=== PATIENT | male | born 1985 | race Hispanic/Latino ===

== ENCOUNTER 2017-06-30 07:53 | Emergency (ER) | payer SELFPAY ==
[2017-06-30 08:48] LABS: Absolute Lymphocytes (CBC) 1.2 K/uL (0.7-4.9); Absolute Monocytes 0.7 K/uL (0.1-1.3); Absolute Neutrophil 6.4 K/uL (1.8-8.0); Basophils % 0.8 % (0-1.3); Eosinophils % 2.6 % (0-4.4); Hematocrit 48.5 % (39.6-49.0); Lymphocytes % 13.8 % (15.3-44.8); MCH 30.3 pg (27.0-35.0); MCV 88.8 fL (80-100); MPV 9.5 fL (7.6-11.3); Monocytes % 8.5 % (3.3-12.3); RBC Red Blood Cell Count 5.47 M/uL (4.33-5.43)
[2017-06-30 08:56] LABS: Bicarbonate 25 mEq/L (21-31); Glucose Level 246 mg/dL (65-120); Lipase 16 U/L (22-51); Potassium 3.7 mEq/L (3.6-5.0); Sodium Level 134 mEq/L (135-145)
[2017-06-30] MEDS ORDERED: DIPHENHYDRAMINE 50 MG/ML VIAL ONE (09:01)
[2017-06-30] MEDS ORDERED: ALBUTEROL 2.5 MG/3 ML NEB SOL ONE (09:01)
[2017-06-30] MEDS ORDERED: METOCLOPRAMIDE 10 MG/2mL INJ ONE (09:01)
[2017-06-30] MEDS ORDERED: KETOROLAC 30 MG/ML INJ ONE (09:01)
[2017-06-30] MEDS ORDERED: IPRATROPIUM BROM 0.5MG/2.5ML ONE (09:01)
[2017-06-30] MEDS ORDERED: NA CHLORIDE 0.9% 1,000 ML ONE (09:01)
[2017-06-30 09:02] LABS: ALT/SGPT 29 IU/L (10-60); AST/SGOT 25 IU/L (10-42); Albumin 4.4 g/dL (3.2-5.5); Alkaline Phosphatase 90 IU/L (42-121); Amylase Level 47 U/L (28-100); BUN Blood Urea Nitrogen 10 mg/dL (6-20); Bilirubin Direct 0.1 mg/dL (0-0.2); Bilirubin Total 0.8 mg/dL (0.3-1.2); Glomerular Filtration Rate > 90 mL/min (=/>90); Protein, Total 7.3 g/dL (6.0-8.3)
--- NOTE | 2017-06-30 10:08 | ER ---
Nurse's Notes [facility] Name: Elliott Vila Age: 31 yrs Sex: Male : 1985 Arrival Date: 06/30/2017 Time: 07:56 Bed 6 Private MD: Diagnosis: Noninfective gastroenteritis and colitis, unspecified;Migraine Presentation: 06/30 08:01 Presenting complaint: Patient states: vomiting x 3 days, headache that started ss yesterday. Transition of care: patient was not received from another setting of care. Onset of symptoms was June 27, 2017. Care prior to arrival: None. 08:01 Method Of Arrival: Ambulatory ss 08:01 Acuity: SHIMA 3 ss Triage Assessment: 08:02 General: Appears in no apparent distress. comfortable, Behavior is calm, cooperative. ss Respiratory: Respiratory effort is even, unlabored. Historical: - Allergies: 08:02 No Known Allergies; ss - Home Meds: 08:02 None [Active]; ss - PMHx: 08:02 None; ss - PSHx: 08:02 Hernia repair; ss - Immunization history:: Adult Immunizations unknown. - Social history:: Smoking status: Patient/guardian denies using tobacco. Screenin:15 Abuse screen: Denies threats or abuse. Denies injuries from another. Nutritional hb screening: No deficits noted. Tuberculosis screening: No symptoms or risk factors identified. Fall Risk None identified. Assessment: 08:15 General: Appears in no apparent distress. Behavior is calm, cooperative. Pain: Pain hb currently is 8 out of 10 on a pain scale. Neuro: Level of Consciousness is awake, alert, obeys commands, Oriented to person, place, time, situation, Pupils are PERRLA, Reports headache occipital area, since yesterday. Cardiovascular: Cardiovascular: Heart tones S1 S2 present Capillary refill < 3 seconds Patient's skin is warm and dry. Respiratory: Airway is patent Trachea midline Respiratory effort is even, unlabored, Respiratory pattern is regular, symmetrical, Breath sounds are clear bilaterally. GI: Abdomen is non-distended, Bowel sounds present X 4 quads. Abd is soft and non tender X 4 quads. Reports intolerance of fluids, intolerance of food, nausea, vomiting, x 3 days. : No signs and/or symptoms were reported regarding the genitourinary system. EENT: No signs and/or symptoms were reported regarding the EENT system. Derm: No signs and/or symptoms reported regarding the dermatologic system. Musculoskeletal: No signs and/or symptoms reported regarding the musculoskeletal system. 09:15 Reassessment: Patient appears in no apparent distress at this time. Patient and/or hb family updated on plan of care and expected duration. Pain level reassessed. Patient is alert, oriented x 3, equal unlabored respirations, skin warm/dry/pink. 10:19 General: Appears in no apparent distress. comfortable, Behavior is calm, cooperative, aj appropriate for age. Neuro: Level of Consciousness is awake, alert, obeys commands, Oriented to person, place, time, situation, Appropriate for age. Respiratory: Airway is patent Respiratory effort is even, unlabored, Respiratory pattern is regular, symmetrical. GI: Abdomen is non-distended, obese. Derm: Skin is intact, is healthy with good turgor, Skin is pink, warm \T\ dry. normal. Vital Signs: 08:02 BP 148 / 95; Pulse 83; Resp 15; Pulse Ox 99% on R/A; Weight 90.72 kg (M); Height 6 ft. ss 0 in. (182.88 cm); Pain 7/10; 09:00 BP 121 / 79; Pulse 82; Resp 16; Pulse Ox 100% on R/A; hb 10:19 BP 134 / 74; Pulse 86; Resp 18; Pulse Ox 99% on R/A; aj 08:02 Body Mass Index 27.12 (90.72 kg, 182.88 cm) ED Course: 07:56 Patient arrived in ED. as 08:02 Triage completed. ss 08:02 Arm band placed on right wrist. Patient placed in an exam room, on a stretcher. ss 08:03 Mehreen Rueda FNP-C is PHCP. kb 08:03 Pritesh Segura MD is Attending Physician. kb 08:15 Patient has correct armband on for positive identification. Placed in gown. Bed in low hb position. Call light in reach. Side rails up X 1. 08:41 Patient moved to radiology via wheelchair. jw2 08:41 X-ray completed. Patient tolerated procedure well. jw2 08:43 Jolanta Painting, RN is Primary Nurse. ph 10:19 No provider procedures requiring assistance completed. IV discontinued, intact, aj bleeding controlled, No redness/swelling at site. Pressure dressing applied, 20 G to right AC. Administered Medications: 08:48 Drug: DuoNeb (3:1) (2.5 mg - 0.5 mg) 3 ml Route: Nebulizer; hb 10:00 Follow up: Response: No adverse reaction ph 08:49 Drug: NS 0.9% 1000 ml Route: IV; Rate: 1000 ml; Site: right antecubital; hb 10:00 Follow up: Response: No adverse reaction; IV Status: Completed infusion ph 08:49 Drug: TORadol 30 mg Route: IVP; Site: right antecubital; hb 10:00 Follow up: Response: No adverse reaction ph 08:49 Drug: Reglan 10 mg Route: IVP; Site: right antecubital; hb 10:00 Follow up: Response: No adverse reaction ph 08:49 Drug: Benadryl 12.5 mg Route: IVP; Site: right antecubital; hb 10:00 Follow up: Response: No adverse reaction ph Outcome: 10:07 Discharge ordered by . kb 10:19 Discharged to home ambulatory. aj 10:19 Condition: good 10:19 Discharge instructions given to patient, Instructed on discharge instructions, follow up and referral plans. medication usage, Demonstrated understanding of instructions, follow-up care, medications, Prescriptions given X 1. 10:21 Patient left the ED. aj Signatures: Mehreen Rueda, COOPER HELPER-C COOPER HELPER-Maria Guadalupe Cortes RN RN aj Martinez, Amelia as Smirch, Shelby, RN RN Jolanta Paitning RN RN ph Wailes, Jenni jw Cesilia Deshpande RN RN
--- NOTE | 2017-06-30 10:08 | EDPHYS ---
Physician Documentation [facility] Name: Elliott Vila Age: 31 yrs Sex: Male : 1985 Arrival Date: 06/30/2017 Time: 07:56 Bed 6 Private MD: ED Physician Pritesh Segura HPI: 06/30 08:26 This 31 yrs old Male presents to ER via Ambulatory with complaints of kb Vomiting, Headache. 08:26 The patient presents to the emergency department with nausea, vomiting, diarrhea. kb Onset: The symptoms/episode began/occurred 3 day(s) ago. Possible causes: unknown. The symptoms are aggravated by nothing. The symptoms are alleviated by nothing. Associated signs and symptoms: Pertinent positives: diarrhea, nausea, vomiting, Pertinent negatives: abdominal pain, anorexia, belching, constipation, dysuria, fever, flatulence, GI bleeding, hematuria. Severity of symptoms: At their worst the symptoms were moderate in the emergency department the symptoms are unchanged. The patient has not experienced similar symptoms in the past. The patient has not recently seen a physician. Pt states he started having n/v/d 3 days ago. States he is still having vomiting, but hasn't had diarrhea since the day before yesterday. States he has shortness of breath in the mornings, smokes cigarettes. Also reports migraine that started this morning. Has history of migraines and this one feels similar to previous. Historical: - Allergies: 08:02 No Known Allergies; ss - Home Meds: 08:02 None [Active]; ss - PMHx: 08:02 None; ss - PSHx: 08:02 Hernia repair; ss - Immunization history:: Adult Immunizations unknown. - Social history:: Smoking status: Patient/guardian denies using tobacco. ROS: 08:25 ENT: Negative for injury, pain, and discharge, Neck: Negative for injury, pain, and kb swelling, Cardiovascular: Negative for chest pain, palpitations, and edema, Back: Negative for injury and pain, : Negative for injury, bleeding, discharge, and swelling, MS/Extremity: Negative for injury and deformity, Skin: Negative for injury, rash, and discoloration. 08:25 Constitutional: Positive for fatigue, malaise, Negative for body aches, chills, fever, poor PO intake, weight loss. 08:25 Respiratory: Positive for shortness of breath, in the mornings only. 08:25 Abdomen/GI: Positive for nausea, vomiting, and diarrhea, Negative for abdominal pain, constipation, abdominal cramps, abdominal distension, anorexia. 08:25 Neuro: Positive for headache, Negative for altered mental status, dizziness, gait disturbance, hearing loss, loss of consciousness, numbness, seizure activity, speech changes, syncope, near syncope, tingling, tinnitus, tremor, visual changes, weakness. Exam: 08:25 Head/Face: Normocephalic, atraumatic. ENT: Nares patent. No nasal discharge, no kb septal abnormalities noted. Tympanic membranes are normal and external auditory canals are clear. Oropharynx with no redness, swelling, or masses, exudates, or evidence of obstruction, uvula midline. Mucous membranes moist. Neck: Trachea midline, no thyromegaly or masses palpated, and no cervical lymphadenopathy. Supple, full range of motion without nuchal rigidity, or vertebral point tenderness. No Meningismus. Chest/axilla: Normal chest wall appearance and motion. Nontender with no deformity. No lesions are appreciated. Cardiovascular: Regular rate and rhythm with a normal S1 and S2. No gallops, murmurs, or rubs. Normal PMI, no JVD. No pulse deficits. Abdomen/GI: Soft, non-tender, with normal bowel sounds. No distension or tympany. No guarding or rebound. No evidence of tenderness throughout. Back: No spinal tenderness. No costovertebral tenderness. Full range of motion. Skin: Warm, dry with normal turgor. Normal color with no rashes, no lesions, and no evidence of cellulitis. MS/ Extremity: Pulses equal, no cyanosis. Neurovascular intact. Full, normal range of motion. Neuro: Awake and alert, GCS 15, oriented to person, place, time, and situation. Cranial nerves II-XII grossly intact. Motor strength 5/5 in all extremities. Sensory grossly intact. Cerebellar exam normal. Normal gait. 08:25 Constitutional: The patient appears alert, awake, uncomfortable. 08:25 Respiratory: the patient does not display signs of respiratory distress, Respirations: normal, Breath sounds: wheezing: expiratory that is mild, is heard in the left lower lobe and left posterior lower lobe. Vital Signs: 08:02 BP 148 / 95; Pulse 83; Resp 15; Pulse Ox 99% on R/A; Weight 90.72 kg (M); Height 6 ft. ss 0 in. (182.88 cm); Pain 7/10; 09:00 BP 121 / 79; Pulse 82; Resp 16; Pulse Ox 100% on R/A; hb 10:19 BP 134 / 74; Pulse 86; Resp 18; Pulse Ox 99% on R/A; aj 08:02 Body Mass Index 27.12 (90.72 kg, 182.88 cm) ss MDM: 08:03 Patient medically screened. kb 08:25 Data reviewed: vital signs, nurses notes. Data interpreted: Pulse oximetry: on room air kb is 99 %. Interpretation: normal. 10:06 Counseling: I had a detailed discussion with the patient and/or guardian regarding: the kb historical points, exam findings, and any diagnostic results supporting the discharge/admit diagnosis, lab results, the need for outpatient follow up, a family practitioner, to return to the emergency department if symptoms worsen or persist or if there are any questions or concerns that arise at home. Response to treatment: the patient's symptoms have resolved after treatment. ED course: Pt reports he feels much better after treatment. nausea and headache have resolved. . 06/30 08:22 Order name: Amylase, Serum kb 06/30 08:22 Order name: Basic Metabolic Panel kb 06/30 08:22 Order name: CBC with Diff kb 06/30 08:22 Order name: Hepatic Function kb 06/30 08:22 Order name: Lipase kb 06/30 08:49 Order name: CBC with Automated Diff; Complete Time: 08:51 EDMS 06/30 08:22 Order name: Chest Pa And Lat (2 Views) XRAY kb 06/30 08:56 Order name: Basic Metabolic Panel; Complete Time: 09:05 EDMS 06/30 08:56 Order name: Lipase; Complete Time: 09:05 EDMS 06/30 09:02 Order name: Liver (Hepatic) Function; Complete Time: 09:05 EDMS 06/30 09:02 Order name: Amylase Level; Complete Time: 09:05 EDMS 06/30 08:22 Order name: IV Saline Lock; Complete Time: 08:49 kb 06/30 08:22 Order name: Labs collected and sent; Complete Time: 08:50 kb Administered Medications: 08:48 Drug: DuoNeb (3:1) (2.5 mg - 0.5 mg) 3 ml Route: Nebulizer; hb 10:00 Follow up: Response: No adverse reaction ph 08:49 Drug: NS 0.9% 1000 ml Route: IV; Rate: 1000 ml; Site: right antecubital; hb 10:00 Follow up: Response: No adverse reaction; IV Status: Completed infusion ph 08:49 Drug: TORadol 30 mg Route: IVP; Site: right antecubital; hb 10:00 Follow up: Response: No adverse reaction ph 08:49 Drug: Reglan 10 mg Route: IVP; Site: right antecubital; hb 10:00 Follow up: Response: No adverse reaction ph 08:49 Drug: Benadryl 12.5 mg Route: IVP; Site: right antecubital; hb 10:00 Follow up: Response: No adverse reaction ph Disposition: 06/30/17 10:07 Discharged to Home. Impression: Noninfective gastroenteritis and colitis, unspecified, Migraine. - Condition is Stable. - Discharge Instructions: Food Choices to Help Relieve Diarrhea, Adult, Viral Gastroenteritis. - Prescriptions for Zofran 4 mg Oral Tablet - take 1 tablet by ORAL route every 6 hours As needed; 20 tablet. - Medication Reconciliation Form, Thank You Letter, Antibiotic Education, Prescription Opioid Use form. - Work release form (06/30/17 10:22). bd - Follow up: Emergency Department; When: As needed; Reason: Worsening of condition. Follow up: Private Physician; When: 2 - 3 days; Reason: Recheck today's complaints, Continuance of care, Re-evaluation by your physician. Addendum: 07/02/2017 08:02 Co-signature as Attending Physician, Pritesh Segura MD I agree with the assessment and c dhillon plan of care. Signatures: Dispatcher [employer] Mehreen Anders, JENNIFER-C ART MODEL-Maria Guadalupe Cortes, RN Pritesh Cano MD MD cha Smirch, Shelby, RN RN ss Baxter, Heather, RN RN Arina Givens Patricia RN ph
--- NOTE | 2017-06-30 10:25 | RAD REPORT ---
EXAM DESCRIPTION: Jeff Ahn (2 Views)06/30/2017 8:44 am CLINICAL HISTORY: sob COMPARISON: None FINDINGS: The lungs appear clear of acute infiltrate. The heart is normal size IMPRESSION: No acute abnormalities displayed
[2017-06-30 10:30] VITALS: BP 134/74; O2SAT 99
== END 2017-06-30 10:21 | disposition home or self-care (01) ==
LOC: ER 07:53
DX: K52.9 Noninfective gastroenteritis and colitis, unspecified (principal); G43.909 Migraine, unspecified, not intractable, without status migrainosus
CPT/HCPCS: 36415; 71046; 80048; 80076; 82150; 83690; 85025; 94640; 96361; 96374; 96375; 99284; J2765; J7030

== ENCOUNTER 2017-12-20 10:38 | Emergency (ER) | payer SELFPAY ==
[2017-12-20] MEDS ORDERED: BUPIVACAINE 0.5% PF 10 ML VIAL ONE (11:38)
[2017-12-20] MEDS ORDERED: LIDOCAINE 1% W/EPI 1:100,000 MDV 50 ML VIAL ONE (11:39)
[2017-12-20] MEDS ORDERED: CLINDAMYCIN 900MG/D5W 900 MG/50 ML BAG IV ONE (12:31)
--- NOTE | 2017-12-20 12:37 | EDPHYS ---
Physician Documentation [facility] Name: Elliott Vila Age: 32 yrs Sex: Male : 1985 Arrival Date: 12/20/2017 Time: 10:46 Bed Treatment Private MD: None, None ED Physician Rayshawn Hightower HPI: 12/20 11:25 This 32 yrs old Male presents to ER via Ambulatory with complaints of Abscess. cp 11:25 The patient presents with an abscess of the buttocks. cp 11:25 Onset: The symptoms/episode began/occurred 1 week(s) ago. cp 11:25 Associated signs and symptoms: Pertinent negatives: discharge, drainage, fever. cp Modifying factors: the symptoms are aggravated by sitting, touching. Severity of symptoms: in the emergency department the symptoms are unchanged, despite home interventions. Historical: - Allergies: 11:00 No Known Allergies; ph - Home Meds: 11:00 None [Active]; ph - PMHx: 11:00 None; ph - PSHx: 11:00 Hernia repair; ph - Immunization history:: Adult Immunizations unknown. - Social history:: Smoking status: Patient/guardian denies using tobacco. - Ebola Screening: : No symptoms or risks identified at this time. ROS: 11:30 Constitutional: Negative for body aches, chills, fever, poor PO intake. cp 11:30 ENT: Negative for injury, pain, and discharge. cp 11:30 Cardiovascular: Negative for chest pain, edema, palpitations. 11:30 Respiratory: Negative for cough, shortness of breath, wheezing. 11:30 Abdomen/GI: Negative for abdominal pain. 11:30 Skin: Positive for abscess, of the buttocks. 11:30 All other systems are negative. Exam: 11:35 Constitutional: The patient appears in no acute distress, alert, awake, non-toxic, well cp developed, well nourished. 11:35 Head/Face: Normocephalic, atraumatic. cp 11:35 Eyes: Periorbital structures: appear normal, Conjunctiva: normal, no exudate, no injection, Lids and lashes: appear normal, bilaterally. 11:35 ENT: External ear(s): are unremarkable, Nose: is normal, Mouth: Lips: moist, Oral mucosa: moist, Posterior pharynx: is normal, airway is patent. 11:35 Chest/axilla: Inspection: normal, Palpation: is normal, no crepitus, no tenderness. 11:35 Cardiovascular: Rate: normal, Rhythm: regular. 11:35 Respiratory: the patient does not display signs of respiratory distress, Respirations: normal, no use of accessory muscles, no retractions, no splinting, no tachypnea. 11:35 Abdomen/GI: Inspection: abdomen appears normal, Palpation: abdomen is soft and non-tender, in all quadrants. 11:35 Skin: abscess, that is small, of the coccyx and right buttock area, with fluctuance, that is mild. Vital Signs: 11:00 BP 158 / 98; Pulse 82; Resp 18; Temp 98.2; Pulse Ox 98% on R/A; Weight 92.99 kg; Height ph 6 ft. 0 in. (182.88 cm); Pain 7/10; 11:00 Body Mass Index 27.80 (92.99 kg, 182.88 cm) ph Procedures: 12:35 I \T\ D: Incision and drainage was performed for an abscess of the right pilonidal cyst cp Prepped with Betadine, Anesthetized with 8 ccs of 50/50 mixture 1% lidocaine with epi and 0.5% marcaine. Incised with #11 blade. Drained small amount purulent fluid. Cultures obtained. Packed with iodoform gauze, Dressing: sterile 4x4 gauze, the patient tolerated the procedure well. MDM: 11:20 Patient medically screened. cp 12:00 Differential diagnosis: abscess, allergic reaction, cellulitis, insect bite. cp 12:35 Data reviewed: vital signs, nurses notes, and as a result, I will discharge patient. cp 12:35 Counseling: I had a detailed discussion with the patient and/or guardian regarding: the cp historical points, exam findings, and any diagnostic results supporting the discharge/admit diagnosis, to return to the emergency department if symptoms worsen or persist or if there are any questions or concerns that arise at home. Response to treatment: the patient's symptoms have markedly improved after treatment, and as a result, I will discharge patient. 12/20 11:24 Order name: Wound Culture cp 12/20 11:24 Order name: I\T\D Setup; Complete Time: 11:36 cp Administered Medications: 12:00 Drug: Marcaine (0.5 %) 5 ml {Note: administered by PA. Lamar} Volume: 10 ml; ss Route: Infiltration; 12:00 Drug: Lidocaine-Epinephrine -1%: (1:100,000) 5 ml {Note: administered to wound by PA. Megan} Volume: 20 ml; Route: Infiltration; 12:33 Drug: Clindamycin 900 mg Route: IVPB; Infused Over: 30 mins; Site: left antecubital; 12:57 Follow up: IV Status: Completed infusion ss Disposition: 12/20/17 12:37 Discharged to Home. Impression: Pilonidal cyst with abscess. - Condition is Stable. - Discharge Instructions: Incision and Drainage, Pilonidal Cyst, Incision and Drainage, Care After. - Prescriptions for Clindamycin HCl 300 mg Oral Capsule - take 1 capsule by ORAL route every 6 hours for 10 days; 40 capsule. Tylenol- Codeine #3 300-30 mg Oral Tablet - take 2 tablets by ORAL route every 6 hours As needed; 15 tablet. Bactrim DS 800- 160 mg Oral Tablet - take 1 tablet by ORAL route every 12 hours for 10 days; 20 tablet. - Work release form, Medication Reconciliation Form, Thank You Letter, Antibiotic Education, Prescription Opioid Use form. - Follow up: Roosevelt Lopez MD; When: 1 - 2 days; Reason: Wound Recheck. - Problem is new. - Symptoms have improved. Addendum: 12/25/2017 07:03 Co-signature as Attending Physician, Rayshawn Hightower MD. r n Signatures: Dispatcher [employer] EDAZ Rayshawn Hightower MD MD rn Smirch, Shelby, RN RN ss Hall, Patricia, RN RN Pritesh Mcmanus PA PA cp Corrections: (The following items were deleted from the chart) 12/20 12:57 12:37 12/20/2017 12:37 Discharged to Home. Impression: Pilonidal cyst with abscess. ss Condition is Stable. Forms are Medication Reconciliation Form, Thank You Letter, Antibiotic Education, Prescription Opioid Use. Follow up: Dr. Roosevelt Lopez; When: 1 - 2 days; Reason: Wound Recheck. Problem is new. Symptoms have improved. cp
--- NOTE | 2017-12-20 12:37 | ER ---
Nurse's Notes [facility] Name: Elliott Vila Age: 32 yrs Sex: Male : 1985 Arrival Date: 12/20/2017 Time: 10:46 Bed Treatment Private MD: None, None Diagnosis: Pilonidal cyst with abscess Presentation: 12/20 10:59 Presenting complaint: Patient states: " I have an abscess right above my butt." Pt ph reports hx of abscess in same area, denies drainage, fever, N/V/D. Transition of care: patient was not received from another setting of care. Onset of symptoms was December 20, 2017. Risk Assessment: Do you want to hurt yourself or someone else? Patient reports no desire to harm self or others. Initial Sepsis Screen: Does the patient meet any 2 criteria? No. Patient's initial sepsis screen is negative. Does the patient have a suspected source of infection? Yes: Skin breakdown/wound. Care prior to arrival: None. 10:59 Method Of Arrival: Ambulatory ph 10:59 Acuity: SHIMA 4 ph Historical: - Allergies: 11:00 No Known Allergies; ph - Home Meds: 11:00 None [Active]; ph - PMHx: 11:00 None; ph - PSHx: 11:00 Hernia repair; ph - Immunization history:: Adult Immunizations unknown. - Social history:: Smoking status: Patient/guardian denies using tobacco. - Ebola Screening: : No symptoms or risks identified at this time. Screenin:18 Abuse screen: Denies threats or abuse. Denies injuries from another. Nutritional ph screening: No deficits noted. Tuberculosis screening: No symptoms or risk factors identified. Fall Risk None identified. Assessment: 11:17 General: Appears in no apparent distress. comfortable, well groomed, Behavior is calm, ph cooperative, appropriate for age, Denies fever, feeling ill. Pain: Complains of pain in coccyx. Neuro: Level of Consciousness is awake, alert, obeys commands, Oriented to person, place, time, situation. Cardiovascular: Capillary refill < 3 seconds Patient's skin is warm and dry. Respiratory: Airway is patent Respiratory effort is even, unlabored, Respiratory pattern is regular, symmetrical. GI: Patient currently denies diarrhea, nausea, vomiting. Derm: Skin is intact, is healthy with good turgor, Skin is pink, warm \\T\\ dry. Abscess located on coccyx is dime sized, has no drainage, is red, is raised. Musculoskeletal: Circulation, motion, and sensation intact. Range of motion: intact in all extremities. Vital Signs: 11:00 BP 158 / 98; Pulse 82; Resp 18; Temp 98.2; Pulse Ox 98% on R/A; Weight 92.99 kg; Height ph 6 ft. 0 in. (182.88 cm); Pain 7/10; 11:00 Body Mass Index 27.80 (92.99 kg, 182.88 cm) ph ED Course: 10:46 Patient arrived in ED. sb2 10:46 None, None is Private Physician. sb2 11:00 Triage completed. ph 11:01 Arm band placed on Patient placed in waiting room, Patient notified of wait time. ph 11:16 Jolanta Painting, RN is Primary Nurse. ph 11:18 Patient has correct armband on for positive identification. Bed in low position. Call ph light in reach. Side rails up X 1. Pulse ox on. NIBP on. Warm blanket given. 11:19 Pritesh Mcmanus PA is PHCP. cp 11:20 Rayshawn Hightower MD is Attending Physician. cp 12:18 Assist provider with I \\T\\ D: of an abscess on pilonidal cyst Set up I\\T\\D tray. Performed ss by Pritesh MCKEE Culture sent to lab. Wound packed. iodoform gauze, Dressing with ABD pad, 4X4s, tape Patient tolerated well. 12:25 Inserted saline lock: 22 gauge in left antecubital area, using aseptic technique. ss 12:36 Roosevelt Lopez MD is Referral Physician. cp 12:56 IV discontinued, intact, bleeding controlled, No redness/swelling at site. Pressure ss dressing applied. Administered Medications: 12:00 Drug: Marcaine (0.5 %) 5 ml {Note: administered by RAFI Newton.} Volume: 10 ml; ss Route: Infiltration; 12:00 Drug: Lidocaine-Epinephrine -1%: (1:100,000) 5 ml {Note: administered to wound by PA. Megan} Volume: 20 ml; Route: Infiltration; 12:33 Drug: Clindamycin 900 mg Route: IVPB; Infused Over: 30 mins; Site: left antecubital; 12:57 Follow up: IV Status: Completed infusion Outcome: 12:37 Discharge ordered by . rufino 12:56 Discharged to home ambulatory. 12:56 Condition: good 12:56 Discharge instructions given to patient, Instructed on discharge instructions, follow up and referral plans. medication usage, Demonstrated understanding of instructions, follow-up care, medications, Prescriptions given X 3. 12:57 Patient left the ED. Signatures: Christine Magana RN RN Jolanta Pianting RN RN ph Pritesh Mcmanus, PA PA cp Mikayla Combs sb2
[2017-12-20 13:05] VITALS: BP 158/98; TEMP 98.2; O2SAT 98
== END 2017-12-20 12:57 | disposition home or self-care (01) ==
LOC: ER 10:38
PROC: 0H98XZZ Drainage of Buttock Skin, External Approach (ICD-10-PCS; principal; 2017-12-20)
DX: L05.01 Pilonidal cyst with abscess (principal)
CPT/HCPCS: 87070; 87205; 96365; 99284

== ENCOUNTER 2018-07-29 20:01 | Emergency (ER) | payer OTHER, SELFPAY ==
--- OUTSIDE RECORDS SUMMARY | 2018-07-29 20:04 | XMS REPORT ---
:1985 [facility] Address [address] [place] [address] Dr. Rodriguez [address] [place] [id number] Care Team Providers Name Role Phone Unavailable Unavailable Unavailable Problems This patient has no known problems. Allergies, Adverse Reactions, Alerts This patient has no known allergies or adverse reactions. Medications This patient has no known medications.
--- NOTE | 2018-07-29 20:37 | ER ---
Nurse's Notes [facility] Name: Elliott Vila Age: 33 yrs Sex: Male : 1985 Arrival Date: 07/29/2018 Time: 20:05 Bed 12 Private MD: Diagnosis: Other diseases of pulp and periapical tissues Presentation: 07/29 20:24 Presenting complaint: Patient states: Has been having pain for 1 week to tooth, but "it lp1 feels like it chipped and a nerve is exposed cause it's really painful now"; States will try to get appt at [facility] tomorrow; Took Ibuprofen at home with no relief. Transition of care: patient was not received from another setting of care. Onset of symptoms was July 29, 2018. Risk Assessment: Do you want to hurt yourself or someone else? Patient reports no desire to harm self or others. Initial Sepsis Screen: Does the patient meet any 2 criteria? No. Patient's initial sepsis screen is negative. Does the patient have a suspected source of infection? No. Patient's initial sepsis screen is negative. Care prior to arrival: None. 20:24 Method Of Arrival: Ambulatory lp1 20:24 Acuity: SHIMA 4 lp1 Triage Assessment: 20:28 EENT: Reports pain in upper left second bicuspid. lp1 Historical: - Allergies: 20:26 No Known Allergies; lp1 - Home Meds: 20:26 None [Active]; lp1 - PMHx: 20:26 None; lp1 - PSHx: 20:26 Hernia repair; lp1 - Immunization history:: Adult Immunizations up to date. - Social history:: Smoking status: Patient/guardian denies using tobacco. - Ebola Screening: : No symptoms or risks identified at this time. Screenin:26 Abuse screen: Denies threats or abuse. Denies injuries from another. Nutritional lp1 screening: No deficits noted. Tuberculosis screening: No symptoms or risk factors identified. Fall Risk None identified. Assessment: 20:27 General: Appears uncomfortable, Behavior is appropriate for age. Pain: Complains of lp1 pain in upper left second bicuspid Pain currently is 10 out of 10 on a pain scale. Quality of pain is described as sharp, stabbing. Neuro: No deficits noted. Cardiovascular: No deficits noted. Respiratory: No deficits noted. GI: No deficits noted. : No deficits noted. EENT: Oral mucosa is moist. Dental caries noted in upper left second bicuspid (#13). Derm: Skin is pink, warm \\T\\ dry. Musculoskeletal: No deficits noted. Vital Signs: 20:25 BP 141 / 91; Pulse 75; Resp 18; Temp 98.2(O); Pulse Ox 100% on R/A; Weight 92.99 kg; lp1 Height 6 ft. 0 in. (182.88 cm); Pain 10/10; 20:25 Body Mass Index 27.80 (92.99 kg, 182.88 cm) lp1 ED Course: 20:05 Patient arrived in ED. am2 20:12 Geeta Subramanian [facility]NP-C [facility]. snw 20:12 Kolby Bryant MD is Attending Physician. snw 20:25 Triage completed. lp1 20:25 Arm band placed on right wrist. lp1 20:26 Patient has correct armband on for positive identification. lp1 20:27 Hedy Landaverde RN is Primary Nurse. lp1 21:07 No provider procedures requiring assistance completed. Patient did not have IV access lp1 during this emergency room visit. Administered Medications: 20:45 Drug: Tate 5 mg-325 mg 1 tabs Route: PO; lp1 21:07 Follow up: Response: No adverse reaction lp1 20:45 Drug: Motrin 400 mg Route: PO; lp1 21:07 Follow up: Response: No adverse reaction lp1 20:45 Drug: Amoxicillin 500 mg Route: PO; lp1 21:07 Follow up: Response: No adverse reaction lp1 20:45 Drug: Viscous Lidocaine Liquid (4 %) 10 ml Route: Mucous Membrane; lp1 21:07 Follow up: Response: No adverse reaction lp1 Outcome: 20:36 Discharge ordered by . snw 21:07 Discharged to home ambulatory, with significant other. lp1 21:07 Condition: good 21:07 Discharge instructions given to patient, Instructed on discharge instructions, follow up and referral plans. medication usage, Demonstrated understanding of instructions, follow-up care, medications, Prescriptions given X 3. 21:08 Patient left the ED. lp1 Signatures: Geeta Subramanian FNP-C LICENSED PROFESSIONAL COUNSELOR-Csnw Hedy Landaverde RN RN lp1 , Maria Guadalupe am2
--- NOTE | 2018-07-29 20:37 | EDPHYS ---
Physician Documentation [facility] Name: Elliott Vila Age: 33 yrs Sex: Male : 1985 Arrival Date: 07/29/2018 Time: 20:05 Bed 12 Private MD: ED Physician Kolby Bryant HPI: 07/29 20:50 This 33 yrs old Male presents to ER via Ambulatory with complaints of snw Toothache. 20:50 The patient presents with broken tooth/teeth, pain. The problem is located in the upper snw left second bicuspid (#13). Onset: The symptoms/episode began/occurred suddenly, 3 day(s) ago, and became worse today. Duration: The symptoms are continuous, and are steadily getting worse. Associated signs and symptoms: The patient has no apparent associated signs or symptoms. Severity of symptoms: At their worst the symptoms were moderate, severe. The patient has not experienced similar symptoms in the past. It is unknown whether or not the patient has recently seen a physician. Historical: - Allergies: 20:26 No Known Allergies; lp1 - Home Meds: 20:26 None [Active]; lp1 - PMHx: 20:26 None; lp1 - PSHx: 20:26 Hernia repair; lp1 - Immunization history:: Adult Immunizations up to date. - Social history:: Smoking status: Patient/guardian denies using tobacco. - Ebola Screening: : No symptoms or risks identified at this time. ROS: 20:48 Constitutional: Negative for fever, chills, and weight loss, Eyes: Negative for injury, snw pain, redness, and discharge, Neck: Negative for injury, pain, and swelling, Cardiovascular: Negative for chest pain, palpitations, and edema, Respiratory: Negative for shortness of breath, cough, wheezing, and pleuritic chest pain, Abdomen/GI: Negative for abdominal pain, nausea, vomiting, diarrhea, and constipation, Back: Negative for injury and pain, : Negative for injury, bleeding, discharge, and swelling, MS/Extremity: Negative for injury and deformity, Skin: Negative for injury, rash, and discoloration, Neuro: Negative for headache, weakness, numbness, tingling, and seizure. 20:48 ENT: Positive for dental pain, ear pain, Teeth pain Exam: 20:48 Constitutional: This is a well developed, well nourished patient who is awake, alert, snw and in no acute distress. Head/Face: Normocephalic, atraumatic. Eyes: Pupils equal round and reactive to light, extra-ocular motions intact. Lids and lashes normal. Conjunctiva and sclera are non-icteric and not injected. Cornea within normal limits. Periorbital areas with no swelling, redness, or edema. Neck: Trachea midline, no thyromegaly or masses palpated, and no cervical lymphadenopathy. Supple, full range of motion without nuchal rigidity, or vertebral point tenderness. No Meningismus. Chest/axilla: Normal chest wall appearance and motion. Nontender with no deformity. No lesions are appreciated. Cardiovascular: Regular rate and rhythm with a normal S1 and S2. No gallops, murmurs, or rubs. Normal PMI, no JVD. No pulse deficits. Respiratory: Lungs have equal breath sounds bilaterally, clear to auscultation and percussion. No rales, rhonchi or wheezes noted. No increased work of breathing, no retractions or nasal flaring. Abdomen/GI: Soft, non-tender, with normal bowel sounds. No distension or tympany. No guarding or rebound. No evidence of tenderness throughout. Back: No spinal tenderness. No costovertebral tenderness. Full range of motion. Skin: Warm, dry with normal turgor. Normal color with no rashes, no lesions, and no evidence of cellulitis. MS/ Extremity: Pulses equal, no cyanosis. Neurovascular intact. Full, normal range of motion. Neuro: Awake and alert, GCS 15, oriented to person, place, time, and situation. Cranial nerves II-XII grossly intact. Motor strength 5/5 in all extremities. Sensory grossly intact. Cerebellar exam normal. Normal gait. 20:48 ENT: TM's: are normal, Nose: is normal, Mouth: is normal, Dental exam: fractured teeth are noted, specifically the upper left second bicuspid (#13). Vital Signs: 20:25 BP 141 / 91; Pulse 75; Resp 18; Temp 98.2(O); Pulse Ox 100% on R/A; Weight 92.99 kg; lp1 Height 6 ft. 0 in. (182.88 cm); Pain 10/10; 20:25 Body Mass Index 27.80 (92.99 kg, 182.88 cm) lp1 MDM: 20:29 Patient medically screened. snw 20:49 Data reviewed: vital signs, nurses notes. Data interpreted: Pulse oximetry: on room air snw is 100 %. Interpretation: normal. Counseling: I had a detailed discussion with the patient and/or guardian regarding: the historical points, exam findings, and any diagnostic results supporting the discharge/admit diagnosis, the need for outpatient follow up, to return to the emergency department if symptoms worsen or persist or if there are any questions or concerns that arise at home. Special discussion: I have referred the patient to see his PCP for further evaluation of high blood pressure. Based on the history and exam findings, there is no indication for further emergent testing or inpatient evaluation. I discussed with the patient/guardian the need to see a dentist for further evaluation of the symptoms. I discussed with the patient/guardian the need to see the primary care provider for further evaluation of the symptoms. Administered Medications: 20:45 Drug: [place] 5 mg-325 mg 1 tabs Route: PO; lp1 21:07 Follow up: Response: No adverse reaction lp1 20:45 Drug: Motrin 400 mg Route: PO; lp1 21:07 Follow up: Response: No adverse reaction lp1 20:45 Drug: Amoxicillin 500 mg Route: PO; lp1 21:07 Follow up: Response: No adverse reaction lp1 20:45 Drug: Viscous Lidocaine Liquid (4 %) 10 ml Route: Mucous Membrane; lp1 21:07 Follow up: Response: No adverse reaction lp1 Disposition: 07/30 01:33 Co-signature as Attending Physician, Kolby Bryant MD. Disposition: 07/29/18 20:36 Discharged to Home. Impression: Other diseases of pulp and periapical tissues. - Condition is Stable. - Discharge Instructions: Dental Caries, Adult, Dental Pain, Root Canal, Diet and Dental Disease. - Prescriptions for chlorhexidine gluconate 0.12 % Mucous Membrane mouthwash - place 15 milliliter by MUCOUS MEMBRANE route 2 times per day after brushing teeth, swish in mouth for 30 seconds then spit out; 480 milliliter. Amoxicillin 875 mg Oral Tablet - take 1 tablet by ORAL route every 12 hours for 10 days; 20 tablet. Mobic 7.5 mg Oral Tablet - take 1 tablet by ORAL route every 12 hours take with food; 20 tablet. - Medication Reconciliation Form, Thank You Letter, Antibiotic Education, Prescription Opioid Use, Work release form form. - Follow up: Private Physician; When: 1 - 2 days; Reason: Recheck today's complaints, Continuance of care, Re-evaluation by your physician. Signatures: Geeta Subramanian, TOOL DIE MAKER-C TOOL DIE MAKER-Csnw Hedy Landaverde RN RN lp1 Kolby Bryant MD MD gs Corrections: (The following items were deleted from the chart) 07/29 21:08 20:36 07/29/2018 20:36 Discharged to Home. Impression: Other diseases of pulp and lp1 periapical tissues. Condition is Stable. Forms are Medication Reconciliation Form, Thank You Letter, Antibiotic Education, Prescription Opioid Use. Follow up: Private Physician; When: 1 - 2 days; Reason: Recheck today's complaints, Continuance of care, Re-evaluation by your physician. snw
[2018-07-29] MEDS ORDERED: HYDROCODONE/APAP 5/325 MG TAB ONE (20:57)
[2018-07-29] MEDS ORDERED: IBUPROFEN 400 MG TAB ONE (20:58)
[2018-07-29] MEDS ORDERED: LIDOCAINE VISCOUS 2% SOLN 15 ML UDC ONE (20:58)
[2018-07-29] MEDS ORDERED: AMOXICILLIN TRIHYDR 250 MG CAP ONE (20:58)
[2018-07-29 21:47] VITALS: BP 141/91; TEMP 98.2; O2SAT 100
== END 2018-07-29 21:08 | disposition home or self-care (01) ==
LOC: ER 20:01
DX: K04.99 Other diseases of pulp and periapical tissues (principal)
CPT/HCPCS: 99283

== ENCOUNTER 2018-11-26 18:20 | Emergency (ER) | payer OTHER, SELFPAY ==
--- OUTSIDE RECORDS SUMMARY | 2018-11-26 18:22 | XMS REPORT ---
:1985 [facility] Address [address] [place] [address] Dr. Rodriguez [address] [place] [id number] Care Team Providers Name Role Phone Unavailable Unavailable Unavailable Problems This patient has no known problems. Allergies, Adverse Reactions, Alerts This patient has no known allergies or adverse reactions. Medications This patient has no known medications.
[2018-11-26] MEDS ORDERED: TETANUS & DIPHTHERIA TOX,ADULT 0.5 ML VIAL ONE (19:23)
[2018-11-26] MEDS ORDERED: HYDROCODONE/APAP 10/325 TAB ONE (19:23)
--- NOTE | 2018-11-26 19:28 | ER ---
Nurse's Notes [facility] Name: Elliott Vila Age: 33 yrs Sex: Male : 1985 Arrival Date: 11/26/2018 Time: 18:23 Bed 26 Private MD: Diagnosis: Pilonidal cyst with abscess Presentation: 11/26 18:23 Presenting complaint: Patient states: i have a boil on my tail bone since Sunday, it hj popped yesterday and now it hurts very bad, denies fever and chills;. Transition of care: patient was not received from another setting of care. Onset of symptoms was November 26, 2018. Risk Assessment: Do you want to hurt yourself or someone else? Patient reports no desire to harm self or others. Initial Sepsis Screen: Does the patient meet any 2 criteria? No. Patient's initial sepsis screen is negative. Does the patient have a suspected source of infection? No. Patient's initial sepsis screen is negative. Care prior to arrival: None. 18:23 Method Of Arrival: Ambulatory 18:23 Acuity: SHIMA 4 hj Historical: - Allergies: 18:24 No Known Allergies; hj - PMHx: 18:24 None; hj - PSHx: 18:24 None; hj - Immunization history:: Adult Immunizations unknown, Last tetanus immunization: unknown. - Social history:: Smoking status: unknown. - Ebola Screening: : Patient negative for fever greater than or equal to 101.5 degrees Fahrenheit, and additional compatible Ebola Virus Disease symptoms Patient denies exposure to infectious person Patient denies travel to an Ebola-affected area in the 21 days before illness onset. Screenin:08 Abuse screen: Denies threats or abuse. Denies injuries from another. Nutritional mg2 screening: No deficits noted. Tuberculosis screening: No symptoms or risk factors identified. Fall Risk None identified. Assessment: 19:35 General: Appears in no apparent distress. comfortable, Behavior is calm, cooperative. mg2 Pain: Complains of pain in sacral area Pain does not radiate. Pain currently is 2 out of 10 on a pain scale. 19:35 Neuro: Level of Consciousness is awake, alert, obeys commands, Oriented to person, rr5 place, time, situation, Appropriate for age. Cardiovascular: Capillary refill < 3 seconds Patient's skin is warm and dry. Respiratory: Airway is patent Respiratory effort is even, unlabored, Respiratory pattern is regular, symmetrical. Derm: Abscess located on left gluteal fold is dime sized, has no drainage, is red, is raised. 19:35 GI: No signs and/or symptoms were reported involving the gastrointestinal system. : rr5 No signs and/or symptoms were reported regarding the genitourinary system. EENT: No signs and/or symptoms were reported regarding the EENT system. Musculoskeletal: Circulation, motion, and sensation intact. Capillary refill < 3 seconds. 19:40 Reassessment: Patient appears in no apparent distress at this time. Patient is alert, rr5 oriented x 3, equal unlabored respirations, skin warm/dry/pink. discharge instruction given and explained without complaints made. Vital Signs: 18:24 BP 132 / 69; Pulse 76; Resp 18; Temp 99.0(TE); Pulse Ox 100% on R/A; Weight 88.45 kg; hj Height 6 ft. 0 in. (182.88 cm); Pain 10/10; 19:17 BP 145 / 88 LA (auto/reg); Pulse 75; Resp 18; Pulse Ox 100% on R/A; Pain 7/10; jp3 19:40 BP 121 / 75; Pulse 79; Resp 17; Pulse Ox 99% ; rr5 18:24 Body Mass Index 26.45 (88.45 kg, 182.88 cm) ED Course: 18:23 Patient arrived in ED. hj 18:24 Triage completed. hj 18:24 Arm band placed on left wrist. hj 19:08 Rubin Santos, ZIYAD is Primary Nurse. mg2 19:08 Андрей Viera NP is PHCP. pm1 19:08 Kolby Bryant MD is Attending Physician. pm1 19:17 Bed in low position. Call light in reach. Verbal reassurance given. Pulse ox on. NIBP jp3 on. 19:17 No provider procedures requiring assistance completed. Patient maintains SpO2 jp3 saturation greater than 95% on room air. 19:24 Lebron Avila MD is Referral Physician. pm1 19:40 Patient did not have IV access during this emergency room visit. rr5 Administered Medications: 19:27 Drug: [place] 10 mg-325 mg 1 tabs Route: PO; mg2 19:27 Follow up: Response: No adverse reaction; Medication administered at discharge. mg2 19:40 Follow up: Response: Medication administered at discharge. rr5 19:28 Drug: Tetanus-Diphtheria Toxoid Adult 0.5 ml {[employer]: [employer]. Exp: mg2 06/29/2020. Lot #: [id number]. } Route: IM; Site: right deltoid; 19:28 Follow up: Response: No adverse reaction; Medication administered at discharge. mg2 19:40 Follow up: Response: Medication administered at discharge. rr5 Outcome: 19:24 Discharge ordered by MD. pm1 19:40 Discharged to home ambulatory, with family. rr5 19:40 Condition: stable 19:40 Discharge instructions given to patient, Instructed on discharge instructions, follow rr5 up and referral plans. medication usage, Demonstrated understanding of instructions, follow-up care, medications, Prescriptions given X 2. 19:42 Patient left the ED. rr5 Signatures: Hans Tinoco RN RN Андрей Viera NP [facility]NALY[facility] pm1 Rubin Santos RN RN [facility] [place] 3 Christ Allan, ZIYAD RN rr5 Corrections: (The following items were deleted from the chart) 18:26 18:24 Pulse 76bpm; Resp 18bpm; Pulse Ox 100% RA; Temp 99.0F Temporal; 88.45 kg; Height hj 6 ft. 0 in.; BMI: 26.4; Pain 10/10; hj
--- NOTE | 2018-11-26 19:29 | EDPHYS ---
Physician Documentation [facility] Name: Elliott Vila Age: 33 yrs Sex: Male : 1985 Arrival Date: 11/26/2018 Time: 18:23 Bed 26 Private MD: ED Physician Kolby Bryant HPI: 11/26 19:18 This 33 yrs old Male presents to ER via Ambulatory with complaints of Abscess. pm1 19:18 The patient presents with an abscess of the coccyx. Description: draining. Onset: The pm1 symptoms/episode began/occurred 3 day(s) ago. Possible cause(s): unknown. Associated signs and symptoms: Pertinent positives: drainage, Pertinent negatives: fever, vomiting. Modifying factors: the symptoms are alleviated by squeezing the lesion and expressing the contents, yesterday, the symptoms are aggravated by touching. Severity of symptoms: in the emergency department the symptoms have improved. The patient has experienced a previous episode. The patient has not recently seen a physician. Historical: - Allergies: 18:24 No Known Allergies; hj - PMHx: 18:24 None; hj - PSHx: 18:24 None; hj - Immunization history:: Adult Immunizations unknown, Last tetanus immunization: unknown. - Social history:: Smoking status: unknown. - Ebola Screening: : Patient negative for fever greater than or equal to 101.5 degrees Fahrenheit, and additional compatible Ebola Virus Disease symptoms Patient denies exposure to infectious person Patient denies travel to an Ebola-affected area in the 21 days before illness onset. ROS: 19:18 Constitutional: Negative for fever, chills, and weight loss, Eyes: Negative for injury, pm1 pain, redness, and discharge, ENT: Negative for injury, pain, and discharge, Neck: Negative for injury, pain, and swelling, Cardiovascular: Negative for chest pain, palpitations, and edema, Respiratory: Negative for shortness of breath, cough, wheezing, and pleuritic chest pain, Abdomen/GI: Negative for abdominal pain, nausea, vomiting, diarrhea, and constipation, Back: Negative for injury and pain, MS/Extremity: Negative for injury and deformity. 19:18 Neuro: Negative for headache, weakness, numbness, tingling, and seizure. 19:18 Skin: Positive for abscess, of the coccyx. Exam: 19:18 Constitutional: This is a well developed, well nourished patient who is awake, alert, pm1 and in no acute distress. Head/Face: Normocephalic, atraumatic. Chest/axilla: Normal chest wall appearance and motion. Nontender with no deformity. No lesions are appreciated. Cardiovascular: Regular rate and rhythm with a normal S1 and S2. No gallops, murmurs, or rubs. Normal PMI, no JVD. No pulse deficits. Respiratory: Lungs have equal breath sounds bilaterally, clear to auscultation and percussion. No rales, rhonchi or wheezes noted. No increased work of breathing, no retractions or nasal flaring. Abdomen/GI: Soft, non-tender, with normal bowel sounds. No distension or tympany. No guarding or rebound. No evidence of tenderness throughout. Back: No spinal tenderness. No costovertebral tenderness. Full range of motion. 19:18 Skin: Appearance: normal except for affected area, abscess, that is small, approximately 1 cm(s), of the coccyx, no drainage, fluctuance, pointing, or surrounding cellulitis. 19:18 Neuro: Orientation: is normal, Motor: is normal, moves all fours, Gait: is steady, at a normal pace, without difficulty. Vital Signs: 18:24 BP 132 / 69; Pulse 76; Resp 18; Temp 99.0(TE); Pulse Ox 100% on R/A; Weight 88.45 kg; hj Height 6 ft. 0 in. (182.88 cm); Pain 10/10; 19:17 BP 145 / 88 LA (auto/reg); Pulse 75; Resp 18; Pulse Ox 100% on R/A; Pain 7/10; jp3 19:40 BP 121 / 75; Pulse 79; Resp 17; Pulse Ox 99% ; rr5 18:24 Body Mass Index 26.45 (88.45 kg, 182.88 cm) MDM: 19:08 Patient medically screened. pm1 19:18 Data reviewed: vital signs. Data interpreted: Pulse oximetry: on room air is 100 %. pm1 Interpretation: normal. Counseling: I had a detailed discussion with the patient and/or guardian regarding: the historical points, exam findings, and any diagnostic results supporting the discharge/admit diagnosis, the need for outpatient follow up, for definitive care, a general surgeon, to return to the emergency department if symptoms worsen or persist or if there are any questions or concerns that arise at home. 19:18 Refusal of service: The patient/guardian displays adequate decision making capability pm1 and despite a detailed discussion of alternatives, benefits, risks, and consequences refuses: incision and drainage. Patient has had I\T\D in the past and he does not want to do that again. Wants to try just taking antibiotics and following up with general surgery. Administered Medications: 19:27 Drug: Timpson 10 mg-325 mg 1 tabs Route: PO; mg2 19:27 Follow up: Response: No adverse reaction; Medication administered at discharge. mg2 19:40 Follow up: Response: Medication administered at discharge. rr5 19:28 Drug: Tetanus-Diphtheria Toxoid Adult 0.5 ml {Industrial Locomotive Operator: [employer]. Exp: mg2 06/29/2020. Lot #: [id number]. } Route: IM; Site: right deltoid; 19:28 Follow up: Response: No adverse reaction; Medication administered at discharge. mg2 19:40 Follow up: Response: Medication administered at discharge. rr5 Disposition: 11/26/18 19:24 Discharged to Home. Impression: Pilonidal cyst with abscess. - Condition is Stable. - Discharge Instructions: Pilonidal Cyst. - Prescriptions for Tylenol- Codeine #3 300-30 mg Oral Tablet - take 2 tablets by ORAL route every 6 hours As needed; 20 tablet. Bactrim DS 800- 160 mg Oral Tablet - take 1 tablet by ORAL route every 12 hours for 10 days; 20 tablet. - Medication Reconciliation Form, Thank You Letter, Antibiotic Education, Prescription Opioid Use, Work release form form. - Follow up: Emergency Department; When: As needed; Reason: Worsening of condition. Follow up: Private Physician; When: 2 - 3 days; Reason: Recheck today's complaints, Continuance of care, Re-evaluation by your physician. Follow up: Lebron Avila MD; When: 2 - 3 days; Reason: Recheck today's complaints, Continuance of care, Re-evaluation by your physician. - Problem is new. - Symptoms have improved. Signatures: Hans Tinoco RN RN hj Андрей Viera NP STAFFING CONSULTANT pm1 Rubin Santos RN RN Christ Singh RN RN rr5 Corrections: (The following items were deleted from the chart) 19:24 19:24 11/26/2018 19:24 Discharged to Home. Impression: Pilonidal cyst with abscess. pm1 Condition is Stable. Forms are Medication Reconciliation Form, Thank You Letter, Antibiotic Education, Prescription Opioid Use. Follow up: Emergency Department; When: As needed; Reason: Worsening of condition. Follow up: Private Physician; When: 2 - 3 days; Reason: Recheck today's complaints, Continuance of care, Re-evaluation by your physician. Follow up: Lebron Avila; When: 2 - 3 days; Reason: Recheck today's complaints, Continuance of care, Re-evaluation by your physician. pm1 19:42 19:24 11/26/2018 19:24 Discharged to Home. Impression: Pilonidal cyst with abscess. rr5 Condition is Stable. Forms are Medication Reconciliation Form, Thank You Letter, Antibiotic Education, Prescription Opioid Use. Follow up: Emergency Department; When: As needed; Reason: Worsening of condition. Follow up: Private Physician; When: 2 - 3 days; Reason: Recheck today's complaints, Continuance of care, Re-evaluation by your physician. Follow up: Lebron Avila; When: 2 - 3 days; Reason: Recheck today's complaints, Continuance of care, Re-evaluation by your physician. Problem is new. Symptoms have improved. pm1
[2018-11-26 19:46] VITALS: TEMP 99; O2SAT 100
[2018-11-26 19:48] VITALS: BP 145/88
== END 2018-11-26 19:42 | disposition home or self-care (01) ==
LOC: ER 18:20
DX: L05.01 Pilonidal cyst with abscess (principal); Z23 Encounter for immunization
CPT/HCPCS: 90471; 90714; 99284

== ENCOUNTER 2019-05-07 13:34 | Emergency (ER) | payer SELFPAY ==
--- OUTSIDE RECORDS SUMMARY | 2019-05-07 13:36 | XMS REPORT ---
:1985 [facility] Address [address] [place] [address] Dr. Rodriguez [address] [place] [id number] Care Team Providers Name Role Phone Unavailable Unavailable Unavailable Problems This patient has no known problems. Allergies, Adverse Reactions, Alerts This patient has no known allergies or adverse reactions. Medications This patient has no known medications.
--- NOTE | 2019-05-07 14:41 | EDPHYS ---
Physician Documentation [facility] Name: Elliott Vila Age: 33 yrs Sex: Male : 1985 Arrival Date: 05/07/2019 Time: 13:35 Bed 26 Private MD: None, None ED Physician Pritesh Segura HPI: 05/07 14:37 This 33 yrs old Male presents to ER via Ambulatory with complaints of Left Eye pm1 Problem. 14:37 The patient is experiencing burning and itching to left lateral lower eyelid, caused by pm1 exposure to poison robyn. Onset: The symptoms/episode began/occurred 2 day(s) ago. Duration: the symptoms are continuous. Aggravated by nothing. Alleviated by nothing. Associated signs and symptoms: Pertinent negatives: fever, headache, runny nose, vision changes. Patient does not utilize any form of vision correction. Severity of symptoms: in the emergency department the symptoms are unchanged. It is unknown whether or not the patient has recently seen a physician. Patient was weed eating and he felt something on his left eyelid. He rubbed it with his glove and his left lower eyelid has been burning and itching since. Historical: - Allergies: 13:58 No Known Allergies; jl7 - Home Meds: 13:58 None [Active]; jl7 - PMHx: 13:58 None; jl7 - PSHx: 13:58 Hernia repair; jl7 - Immunization history:: Adult Immunizations not up to date. - Coronavirus screen:: The patient has NOT traveled to [place], [place], or [place] in the past 14 days. Proceed with normal triage process as indicated. - Social history:: Smoking status: Patient denies any tobacco usage or history of. - Ebola Screening: : No symptoms or risks identified at this time. ROS: 14:37 Constitutional: Negative for fever, chills, and weight loss. pm1 14:37 ENT: Negative for injury, pain, and discharge, Neck: Negative for injury, pain, and swelling, Cardiovascular: Negative for chest pain, palpitations, and edema, Respiratory: Negative for shortness of breath, cough, wheezing, and pleuritic chest pain, Abdomen/GI: Negative for abdominal pain, nausea, vomiting, diarrhea, and constipation, Back: Negative for injury and pain, MS/Extremity: Negative for injury and deformity, Skin: Negative for injury, rash, and discoloration, Neuro: Negative for headache, weakness, numbness, tingling, and seizure. 14:37 Eyes: Positive for itching, pain, of the left lower eyelid, Negative for blurry vision, redness, vision loss, visual disturbance. Exam: 14:37 Constitutional: This is a well developed, well nourished patient who is awake, alert, pm1 and in no acute distress. Head/Face: Normocephalic, atraumatic. 14:37 ENT: Nares patent. No nasal discharge, no septal abnormalities noted. Tympanic membranes are normal and external auditory canals are clear. Oropharynx with no redness, swelling, or masses, exudates, or evidence of obstruction, uvula midline. Mucous membranes moist. Neck: Trachea midline, no thyromegaly or masses palpated, and no cervical lymphadenopathy. Supple, full range of motion without nuchal rigidity, or vertebral point tenderness. No Meningismus. Chest/axilla: Normal chest wall appearance and motion. Nontender with no deformity. No lesions are appreciated. Cardiovascular: Regular rate and rhythm with a normal S1 and S2. No gallops, murmurs, or rubs. Normal PMI, no JVD. No pulse deficits. Respiratory: Lungs have equal breath sounds bilaterally, clear to auscultation and percussion. No rales, rhonchi or wheezes noted. No increased work of breathing, no retractions or nasal flaring. Back: No spinal tenderness. No costovertebral tenderness. Full range of motion. Skin: Warm, dry with normal turgor. Normal color with no rashes, no lesions, and no evidence of cellulitis. MS/ Extremity: Pulses equal, no cyanosis. Neurovascular intact. Full, normal range of motion. 14:37 Eyes: Extraocular movements: intact throughout, Conjunctiva: normal, no chemosis, no excoriation, no exudate, no injection, no abnormal tearing, Corneas: no acute changes, Lids and lashes: left lower eyelid lateral aspect with appearance of contact dermatitis. 14:37 Neuro: Orientation: is normal, Motor: is normal, moves all fours. Vital Signs: 13:58 BP 128 / 83; Pulse 72; Resp 16 S; Temp 98.5(O); Pulse Ox 100% on R/A; Weight 95.25 kg jl7 (R); Height 6 ft. 0 in. (182.88 cm) (R); Pain 0/10; 14:45 BP 139 / 80; Pulse 62; Resp 18; Pulse Ox 100% on R/A; vc 13:58 Body Mass Index 28.48 (95.25 kg, 182.88 cm) jl7 MDM: 14:07 Patient medically screened. [facility] 14:37 Data reviewed: vital signs. Data interpreted: Pulse oximetry: on room air is 100 %. pm1 Interpretation: normal. 14:37 Counseling: I had a detailed discussion with the patient and/or guardian regarding: the pm1 historical points, exam findings, and any diagnostic results supporting the discharge/admit diagnosis, the need for outpatient follow up, to return to the emergency department if symptoms worsen or persist or if there are any questions or concerns that arise at home. Administered Medications: 14:50 Drug: Decadron 10 mg Route: IM; Site: right gluteus; vc 14:55 Follow up: Response: No adverse reaction vc Disposition: 05/08 07:27 Co-signature as Attending Physician, Pritesh Segura MD I agree with the assessment and [facility] plan of care. Disposition: 05/07/19 14:40 Discharged to Home. Impression: Allergic contact dermatitis due to plants, except food. - Condition is Stable. - Discharge Instructions: Poison Robyn Dermatitis. - Prescriptions for Medrol (Sandeep) 4 mg Oral Tablets, Dose Pack - take 1 tablet by ORAL route as directed - follow package instructions; 1 packet. Erythromycin 5 mg/gram (0.5 %) Ophthalmic Ointment - apply 1 ribbon by OPHTHALMIC route every 8 hours; 1 tube. - Medication Reconciliation Form, Thank You Letter, Antibiotic Education, Prescription Opioid Use form. - Follow up: Emergency Department; When: As needed; Reason: Worsening of condition. Follow up: Private Physician; When: 2 - 3 days; Reason: Recheck today's complaints, Continuance of care, Re-evaluation by your physician. - Problem is new. - Symptoms have improved. Signatures: Pritesh Segura MD MD cha Marinas, Patrick, KOBE VENEER STAPLER pm1 Anali Roldan RN RN jl7 Kaci Cunningham RN RN vc Corrections: (The following items were deleted from the chart) 05/07 15:07 14:40 05/07/2019 14:40 Discharged to Home. Impression: Allergic contact dermatitis due vc to plants, except food. Condition is Stable. Forms are Medication Reconciliation Form, Thank You Letter, Antibiotic Education, Prescription Opioid Use. Follow up: Emergency Department; When: As needed; Reason: Worsening of condition. Follow up: Private Physician; When: 2 - 3 days; Reason: Recheck today's complaints, Continuance of care, Re-evaluation by your physician. Problem is new. Symptoms have improved. pm1
--- NOTE | 2019-05-07 14:41 | ER ---
Nurse's Notes [facility] Name: Elliott Vila Age: 33 yrs Sex: Male : 1985 Arrival Date: 05/07/2019 Time: 13:35 Bed 26 Private MD: None, None Diagnosis: Allergic contact dermatitis due to plants, except food Presentation: 05/07 13:56 Presenting complaint: Patient states: Lewis eating a couple days ago, had gloves on and jl7 rubbed my eye, now it's itching and burning, denies blurry vision. Transition of care: patient was not received from another setting of care. Onset of symptoms was May 05, 2019. Risk Assessment: Do you want to hurt yourself or someone else? Patient reports no desire to harm self or others. Initial Sepsis Screen: Does the patient meet any 2 criteria? No. Patient's initial sepsis screen is negative. Does the patient have a suspected source of infection? No. Patient's initial sepsis screen is negative. Care prior to arrival: None. 13:56 Method Of Arrival: Ambulatory [facility] 13:56 Acuity: SHIMA 4 jl7 Triage Assessment: 14:00 General: Appears in no apparent distress. Behavior is calm, cooperative. ls4 14:00 EENT: Eyes PT STATES EYES ARE SCRATCHY AND IRRITATED. . Neuro: No deficits noted. ls4 Cardiovascular: Reports. Respiratory: No deficits noted. GI: No deficits noted. : No deficits noted. Derm: No deficits noted. Musculoskeletal: No deficits noted. Historical: - Allergies: 13:58 No Known Allergies; jl7 - Home Meds: 13:58 None [Active]; jl7 - PMHx: 13:58 None; jl7 - PSHx: 13:58 Hernia repair; jl7 - Immunization history:: Adult Immunizations not up to date. - Coronavirus screen:: The patient has NOT traveled to [place], [place], or [place] in the past 14 days. Proceed with normal triage process as indicated. - Social history:: Smoking status: Patient denies any tobacco usage or history of. - Ebola Screening: : No symptoms or risks identified at this time. Screenin:12 Abuse screen: Denies threats or abuse. Denies injuries from another. Nutritional ls4 screening: No deficits noted. Tuberculosis screening: No symptoms or risk factors identified. Fall Risk None identified. Assessment: 14:45 General: Appears in no apparent distress. uncomfortable, Behavior is calm, cooperative, vc appropriate for age. Pain: Complains of pain in left eye. Neuro: Level of Consciousness is awake, alert, obeys commands, Oriented to person, place, situation. Cardiovascular: Patient's skin is warm and dry. Respiratory: Respiratory effort is even, unlabored. GI: No signs and/or symptoms were reported involving the gastrointestinal system. : No deficits noted. EENT: Lid(s) poison nuha. Derm: Rash noted that is itchy, on left lower eyelid. Musculoskeletal: Range of motion: intact in all extremities. 15:00 Reassessment: Patient appears in no apparent distress at this time. Patient and/or ls4 family updated on plan of care and expected duration. Pain level reassessed. Patient is alert, oriented x 3, equal unlabored respirations, skin warm/dry/pink. Vital Signs: 13:58 BP 128 / 83; Pulse 72; Resp 16 S; Temp 98.5(O); Pulse Ox 100% on R/A; Weight 95.25 kg jl7 (R); Height 6 ft. 0 in. (182.88 cm) (R); Pain 0/10; 14:45 BP 139 / 80; Pulse 62; Resp 18; Pulse Ox 100% on R/A; vc 13:58 Body Mass Index 28.48 (95.25 kg, 182.88 cm) jl7 ED Course: 13:35 Patient arrived in ED. as 13:35 None, None is Private Physician. as 13:58 Triage completed. jl7 13:58 Arm band placed on right wrist. jl7 14:05 Андрей Viera NP is PHCP. pm1 14:05 Pritesh Segura MD is Attending Physician. pm1 14:11 Shireen Melchor, RN is Primary Nurse. ls4 14:12 Patient has correct armband on for positive identification. Bed in low position. Call ls4 light in reach. Side rails up X2. 14:12 No provider procedures requiring assistance completed. ls4 14:52 Primary Nurse role handed off by Shireen Melchor, RN vc 14:52 Kaci Cunningham, RN is Primary Nurse. vc 15:05 Patient did not have IV access during this emergency room visit. vc Administered Medications: 14:50 Drug: Decadron 10 mg Route: IM; Site: right gluteus; vc 14:55 Follow up: Response: No adverse reaction vc Outcome: 14:40 Discharge ordered by . pm1 15:00 Discharged to home ambulatory. vc 15:00 Condition: good 15:00 Discharge instructions given to patient. 15:07 Patient left the ED. vc Signatures: Jacqueline Phelps Patrick, NP AIRLINE RESERVATION AGENT pm1 Anali Roldan RN RN jl7 Shireen Melchor RN RN ls4 Kaci Cunningham RN RN vc Corrections: (The following items were deleted from the chart) 16:36 16:15 General: Appears vc vc 16:36 14:45 General: Behavior is calm, cooperative, appropriate for age, vc vc 23:02 15:45 Reassessment: Patient appears in no apparent distress at this time. Patient ls4 and/or family updated on plan of care and expected duration. Pain level reassessed. Patient is alert, oriented x 3, equal unlabored respirations, skin warm/dry/pink. ls4
[2019-05-07] MEDS ORDERED: dexAMETHasone 10 MG/ML VIAL ONE (14:46)
[2019-05-07 15:41] VITALS: BP 128/83; TEMP 98.5; O2SAT 100
== END 2019-05-07 15:07 | disposition home or self-care (01) ==
LOC: ER 13:34
DX: L23.7 Allergic contact dermatitis due to plants, except food (principal)
CPT/HCPCS: 96372; 99283; J1100

== ENCOUNTER 2022-01-22 13:21 | Emergency (ER) | payer SELFPAY ==
--- OUTSIDE RECORDS SUMMARY | 2022-01-22 13:24 | XMS REPORT | Continuity of Care Document ---
:1985 Author Organization [facility] t Address [address] [place] [place] [address] Care Team Providers Name Role Phone Sia Mantilla Primary Care Physician Uma HERNÁNDEZ, Lolly Lundberg Attending Clinician [phone] Payers Payer Name Policy Type Policy Number Effective Date Expiration Date S ource Problems This patient has no known problems. Allergies, Adverse Reactions, Alerts This patient has no known allergies or adverse reactions. Social History Social Habit Start Date Stop Date Quantity Comments Source Sex Assigned At [birth year] [facility] 00:00:00 00:00:00 [facility] Smoking Status Start Date Stop Date Source Unknown if ever smoked [facility] Medications This patient has no known medications. Procedures This patient has no known procedures. Encounters Start End Encounter Admission Attending Care Care Encounter Source Date/Time Date/Time Type Type Clinicians Facility Department ID 2021-05-16 2021-05-16 Telephone DONTAE Eaton [id number] [facility] 00:00:00 00:00:00 Lolly MEEK [id number] ity caroline PHILLIPS [id number] Kirk as STEPHEN?BLEA [id number] [address] MED[facility] Results This patient has no known results.
[2022-01-22] MEDS ORDERED: TETANUS & DIPHTHERIA TOX,ADULT 0.5 ML VIAL ONE (14:14)
[2022-01-22] MEDS ORDERED: LIDOCAINE 1% MPF 30 ML VIAL ONE (14:14)
--- NOTE | 2022-01-22 15:41 | ER ---
Nurse's Notes [facility] Name: Elliott Vila Age: 36 yrs Sex: Male : 1985 Arrival Date: 01/22/2022 Time: 13:24 Bed Treatment Private MD: Diagnosis: Foreign Body Removal Of the Right Hand Presentation: 01/22 13:35 Chief complaint: Patient states: i got an infection in my RIGHT hand a couple of days tw2 ago and i got some cuts in my hand. and i got some concrete in there so it is just getting worse and my finger and my hands are throbbing. its been about a week since this happened. i did pour hydrogen peroxide on it but it didn't help and i tried digging out the concrete but no i couldn't i figured i needed yalls help. Coronavirus screen: At this time, the client does not indicate any symptoms associated with coronavirus-19. Ebola Screen: Patient denies travel to an Ebola-affected area in the 21 days before illness onset. Initial Sepsis Screen: Does the patient meet any 2 criteria? No. Patient's initial sepsis screen is negative. Does the patient have a suspected source of infection? No. Patient's initial sepsis screen is negative. Risk Assessment: Do you want to hurt yourself or someone else? Patient reports no desire to harm self or others. Onset of symptoms was January 22, 2022. 13:35 Method Of Arrival: Ambulatory tw2 13:35 Acuity: SHIMA 3 tw2 Triage Assessment: 13:38 General: Appears in no apparent distress. Behavior is calm, cooperative, appropriate tw2 for age. Pain: Complains of pain in right hand. Musculoskeletal: Swelling present in right hand. Injury Description: from a blister from digging and then concrete got in there. Historical: - Allergies: 13:37 No Known Allergies; tw2 - Home Meds: 13:37 None [Active]; tw2 - PMHx: 13:37 None; tw2 - PSHx: 13:37 inguinal hernia repair; tw2 - Immunization history:: Last tetanus immunization: unknown. - Social history:: Smoking status: Patient denies any tobacco usage or history of. Patient uses street drugs, marijuana, "a few times a week". Screenin:44 Abuse screen: Denies threats or abuse. Denies injuries from another. Nutritional hb screening: No deficits noted. Tuberculosis screening: No symptoms or risk factors identified. Fall Risk None identified. Assessment: 14:44 General: SEE TRIAGE ASSESSMENT. hb Vital Signs: 13:35 BP 137 / 92; Pulse 90; Resp 17; Temp 98.8(TE); Pulse Ox 100% on R/A; Pain 6/10; tw2 ED Course: 13:24 Patient arrived in ED. ja2 13:33 Mehreen Rueda FNP-C is [facility]. kb 13:33 Pritesh Segura MD is Attending Physician. kb 13:37 Triage completed. tw2 13:37 Arm band placed on. tw2 13:44 Julio Cesar Orellana PA is [facility]. [facility] 13:44 Pritesh Segura MD is Attending Physician. [facility] 14:44 Cesilia Deshpande, RN is Primary Nurse. hb 14:44 Patient has correct armband on for positive identification. hb 15:40 Nelson Hudson MD is Referral Physician. [facility] 15:59 No provider procedures requiring assistance completed. Patient did not have IV access hb during this emergency room visit. Administered Medications: 14:16 Drug: Tetanus-Diphtheria Toxoid Adult 0.5 ml {Marketing Summer Intern: [employer]. Exp: iw 08/13/2023. Lot #: [id number]. } Route: IM; Site: left deltoid; 15:44 Follow up: Response: No adverse reaction hb 14:40 Drug: Lidocaine (1 %) 20 ml {Note: ADMINISTERD BY RAFI BEATTY.} Volume: 20 ml; Route: hb Infiltration; Medication: 14:44 VIS not applicable for this client. hb Outcome: 15:40 Discharge ordered by . [facility] 15:59 Discharged to home ambulatory. hb 15:59 Condition: stable 15:59 Discharge instructions given to patient, Instructed on discharge instructions, follow up and referral plans. medication usage, wound care, Demonstrated understanding of instructions, follow-up care, medications, wound care, Prescriptions given X 1. 16:00 Patient left the ED. hb Signatures: Mehreen Rueda FNP-C FNP-Julio Cesar Finch PA PA Arlet Bailey RN RN Cesilia Deshpande RN RN Linda Mercado RN RN 2 Lisseth Soni [facility]
--- NOTE | 2022-01-22 15:41 | EDPHYS ---
Physician Documentation [facility] Name: Elliott Vila Age: 36 yrs Sex: Male : 1985 Arrival Date: 01/22/2022 Time: 13:24 Bed Treatment Private MD: PRINCE Physician Pritesh Segura HPI: 01/22 15:07 This 36 yrs old Male presents to ER via Ambulatory with complaints of Hand jmm Injury. 15:07 Onset: The symptoms/episode began/occurred acutely, 1 week(s) ago. This is a jmm 36-year-old male with no known chronic medical conditions presents emerged part with complaints of right hand pain. Patient states that he got his hand and wet cement and uses hand to start the cement. Patient states that he believes there is some stones embedded in his right hand. Patient is not up-to-date on tetanus immunization. Historical: - Allergies: 13:37 No Known Allergies; tw2 - Home Meds: 13:37 None [Active]; tw2 - PMHx: 13:37 None; tw2 - PSHx: 13:37 inguinal hernia repair; tw2 - Immunization history:: Last tetanus immunization: unknown. - Social history:: Smoking status: Patient denies any tobacco usage or history of. Patient uses street drugs, marijuana, "a few times a week". ROS: 15:07 Constitutional: Negative for fever, chills, and weight loss, Cardiovascular: Negative jmm for chest pain, palpitations, and edema, Respiratory: Negative for shortness of breath, cough, wheezing, and pleuritic chest pain. 15:07 Skin: Positive for Injury. 15:07 All other systems are negative. Exam: 15:07 Constitutional: This is a well developed, well nourished patient who is awake, alert, jmm and in no acute distress. Head/Face: atraumatic. Eyes: EOMI, no conjunctival erythema appreciated ENT: Moist Mucus Membranes Neck: Trachea midline, Supple Chest/axilla: Normal chest wall appearance and motion. Cardiovascular: Regular rate and rhythm. No edema appreciated Respiratory: Normal respirations, no respiratory distress appreciated Abdomen/GI: Non distended Back: Normal ROM 15:07 Skin: Multiple small punctures noted to the palm of the right hand, one of the punctures at the hyperthenar region as erythematous, tender to palpation. 15:07 Neuro: Orientation: is normal, Mentation: is normal, Memory: is normal. 15:07 Psych: Behavior/mood is pleasant, cooperative. Vital Signs: 13:35 BP 137 / 92; Pulse 90; Resp 17; Temp 98.8(TE); Pulse Ox 100% on R/A; Pain 6/10; tw2 MDM: 13:44 Patient medically screened. [facility] 15:38 Data reviewed: vital signs, nurses notes. Counseling: I had a detailed discussion with jmly the patient and/or guardian regarding: radiology results. Administered Medications: 14:16 Drug: Tetanus-Diphtheria Toxoid Adult 0.5 ml {Vice President: [employer]. Exp: iw 08/13/2023. Lot #: [id number]. } Route: IM; Site: left deltoid; 15:44 Follow up: Response: No adverse reaction hb 14:40 Drug: Lidocaine (1 %) 20 ml {Note: ADMINISTERD BY RAFI BEATTY.} Volume: 20 ml; Route: hb Infiltration; Disposition Summary: 01/22/22 15:40 Discharge Ordered Location: Home [facility] Condition: Stable [facility] Diagnosis - Foreign Body Removal Of the Right Hand [facility] Followup: [facility] - With: Nelson Hudson MD - When: 2 - 3 days - Reason: Recheck today's complaints, Continuance of care, Re-evaluation by your physician Discharge Instructions: - Discharge Summary Sheet [facility] Forms: - Medication Reconciliation Form [facility] - Thank You Letter [facility] - Antibiotic Education [facility] - Prescription Opioid Use [facility] - Work release form Prescriptions: - Doxycycline Hyclate 100 mg Oral Tablet - take 1 tablet by ORAL route every 12 hours; 20 tablet; Refills: 0, Product [facility] Selection Permitted Signatures: Julio Cesar Orellana PA PA jmm Williams, Irene RN RN Cesilia Deshpande, RN RN hb Linda Mercado RN RN tw2
[2022-01-22 16:06] VITALS: BP 137/92; TEMP 98.8; O2SAT 100
== END 2022-01-22 16:00 | disposition home or self-care (01) ==
LOC: ER 13:21
DX: S60.551A Superficial foreign body of right hand, initial encounter (principal); Z23 Encounter for immunization
CPT/HCPCS: 90471; 90714; 99283

== ENCOUNTER → 2023-05-12 | Emergency (ER) | payer SELFPAY ==
[~2023-05-12] MED LIST: AMOX/K CLAV 875 MG TAB ONE
--- NOTE | 2023-05-12 18:28 | EDPHYS ---
Physician Documentation [facility] Name: Elliott Vila Age: 37 yrs Sex: Male : 1985 Arrival Date: 05/12/2023 Time: 17:59 Bed IW2 Private MD: ED Physician Em Fuentes HPI: 05/12 20:06 This 37 yrs old Male presents to ER via Ambulatory with complaints of Mouth sb4 Problem - Infection. 20:06 The patient presents with broken tooth/teeth, pain, swelling. The problem is located in sb4 the lower right first bicuspid. Onset: The symptoms/episode began/occurred yesterday. The patient has not experienced similar symptoms in the past. cracked a tooth, having pain, hasn't been able to see a dentist yet. has a lot of swelling and inflammation. Historical: - Allergies: 18:26 No Known Allergies; cm10 - Home Meds: 18:26 None [Active]; cm10 - PMHx: 18:26 None; cm10 - PSHx: 18:26 inguinal hernia repair; cm10 - Immunization history:: Adult Immunizations up to date. - Social history:: Smoking status: Patient denies any tobacco usage or history of. ROS: 20:06 Constitutional: Negative for fever, chills, and weight loss, sb4 20:06 ENT: Positive for dental pain, 20:06 All other systems are negative, Exam: 20:06 Constitutional: This is a well developed, well nourished patient who is awake, alert, sb4 and in no acute distress. Head/Face: Normocephalic, atraumatic. Eyes: Extra-ocular motions intact. Periorbital areas with no swelling, redness, or edema. 20:06 ENT: Dental exam: fractured teeth are noted, specifically the lower right first bicuspid, gum swelling, that is moderate, specifically in the lower right first bicuspid, Vital Signs: 18:25 BP 148 / 88; Pulse 78; Resp 16; Temp 98.1; Pulse Ox 100% on R/A; Weight 77.11 kg; cm10 Height 6 ft. 0 in. ; Pain 5/10; 18:25 Body Mass Index 23.06 (77.11 kg, 182.88 cm) cm10 18:25 Pain Scale: Adult cm10 MDM: 18:27 Patient medically screened. sb4 20:06 Differential diagnosis: dental caries, gingivitis, dental abscess, gingivostomatitis. sb4 Data reviewed: vital signs, nurses notes, and as a result, I will discharge patient. Care significantly affected by the following Social Determinants of Health: Poor access to healthcare and/or lack of insurance. Counseling: I had a detailed discussion with the patient and/or guardian regarding the historical points, exam findings, and any diagnostic results supporting the discharge/admit diagnosis, the need for outpatient follow up, a dentist, to return to the emergency department if symptoms worsen or persist or if there are any questions or concerns that arise at home. Administered Medications: No medications were administered Disposition Summary: 05/12/23 18:27 Discharge Ordered Notes: Location: Home sb4 Problem: new sb4 Symptoms: are unchanged sb4 Condition: Stable sb4 Diagnosis - Cracked tooth sb4 Followup: sb4 - With: Private Physician - When: 2 - 3 days - Reason: Recheck today's complaints, Re-evaluation by your physician Discharge Instructions: - Dental Pain, [id number] sb4 - Tooth Injuries, [id number] sb4 - Discharge Summary Sheet cm10 Forms: - Medication Reconciliation Form sb4 - Thank You Letter sb4 - Antibiotic Education sb4 - Prescription Opioid Use sb4 - Patient Portal Instructions sb4 - Leadership Thank You Letter sb4 - Work release form cm10 Prescriptions: - Amoxicillin 875 mg Oral Tablet - take 1 tablet ORAL route every 12 hours for 10 days; 20 tablet; Refills: 0, sb4 Product Selection Permitted Signatures: Natalie Arriaza PA-C PA-C sb4 Maite Phelps, RN RN cm10
--- NOTE | 2023-05-12 18:28 | ER ---
Nurse's Notes [facility] Name: Elliott Vila Age: 37 yrs Sex: Male : 1985 Arrival Date: 05/12/2023 Time: 17:59 Bed IW2 Private MD: Diagnosis: Cracked tooth Presentation: 05/12 18:25 Chief complaint: Right lower molar pain that radiates to face and neck after cracked cm10 tooth yesterday. Coronavirus screen: At this time, the client does not indicate any symptoms associated with coronavirus-19. Ebola Screen: No symptoms or risks identified at this time. Initial Sepsis Screen: Does the patient meet any 2 criteria? No. Patient's initial sepsis screen is negative. Does the patient have a suspected source of infection? No. Patient's initial sepsis screen is negative. Risk Assessment: Do you want to hurt yourself or someone else? Patient reports no desire to harm self or others. Onset of symptoms was May 12, 2023. 18:25 Method Of Arrival: Ambulatory cm10 18:25 Acuity: SHIMA 4 cm10 Historical: - Allergies: 18:26 No Known Allergies; cm10 - Home Meds: 18:26 None [Active]; cm10 - PMHx: 18:26 None; cm10 - PSHx: 18:26 inguinal hernia repair; cm10 - Immunization history:: Adult Immunizations up to date. - Social history:: Smoking status: Patient denies any tobacco usage or history of. Vital Signs: 18:25 BP 148 / 88; Pulse 78; Resp 16; Temp 98.1; Pulse Ox 100% on R/A; Weight 77.11 kg; cm10 Height 6 ft. 0 in. ; Pain 5/10; 18:25 Body Mass Index 23.06 (77.11 kg, 182.88 cm) cm10 18:25 Pain Scale: Adult cm10 ED Course: 18:04 Patient arrived in ED. mg5 18:06 Natalie Arriaza PA-C is PHCP. sb4 18:06 Em Fuentes MD is Attending Physician. sb4 18:26 Triage completed. cm10 18:27 Arm band placed on. cm10 Administered Medications: No medications were administered Outcome: 18:27 Discharge ordered by MD. sb4 18:34 Patient left the ED. cm10 Signatures: Natalie Arriaza PA-C PA-C sb4 Maite Phelps, RN RN cm10 Coby Benton mg5
[2023-05-12 18:38] VITALS: BP 148/88; TEMP 98.1; O2SAT 100
== END ==
LOC: ER 17:59
DX: K03.81 Cracked tooth (principal)

== ENCOUNTER → 2023-05-13 | Emergency (ER) | payer SELFPAY ==
[~2023-05-13] MED LIST changes: -AMOX/K CLAV 875 MG TAB ONE; +HYDROCODONE/APAP 10/325 TAB ONE; +dexAMETHasone 10 MG/ML VIAL ONE
--- NOTE | 2023-05-13 22:02 | ER ---
Nurse's Notes [facility] Name: Elliott Vila Age: 37 yrs Sex: Male : 1985 Arrival Date: 05/13/2023 Time: 21:49 Bed IW1 Private MD: Diagnosis: Dental pain Presentation: 05/13 21:55 Chief complaint: Patient states: "I was here last night for my tooth pain and given mb9 antibiotics but the pain is unbearable and nothing is helping.". Coronavirus screen: At this time, the client does not indicate any symptoms associated with coronavirus-19. Ebola Screen: No symptoms or risks identified at this time. Initial Sepsis Screen: Does the patient meet any 2 criteria? No. Patient's initial sepsis screen is negative. Does the patient have a suspected source of infection? No. Patient's initial sepsis screen is negative. Risk Assessment: Do you want to hurt yourself or someone else? Patient reports no desire to harm self or others. Onset of symptoms was May 13, 2023. 21:55 Method Of Arrival: Ambulatory mb9 21:55 Acuity: SHIMA 4 mb9 Triage Assessment: 21:57 General: Appears in no apparent distress. Behavior is calm, cooperative. Pain: mb9 Complains of pain in mouth. EENT: Oral mucosa is moist. Reports pain in mouth. Neuro: Nunes Agitation-Sedation Scale (RASS): 0 - Alert and Calm Level of Consciousness is awake, alert, obeys commands, Oriented to person, place, time, situation, Appropriate for age. Cardiovascular: Patient's skin is warm and dry. Respiratory: Airway is patent Respiratory effort is even, unlabored, Respiratory pattern is regular, symmetrical. GI: No signs and/or symptoms were reported involving the gastrointestinal system. : No signs and/or symptoms were reported regarding the genitourinary system. Derm: Skin is pink, warm \\T\\ dry. Musculoskeletal: Range of motion: intact in all extremities. Historical: - Allergies: 21:57 NKA; mb9 - Home Meds: 21:57 None [Active]; mb9 - PMHx: 21:57 None; mb9 - PSHx: 21:57 inguinal hernia repair; mb9 - Immunization history:: Adult Immunizations up to date. - Social history:: Smoking status: Patient denies any tobacco usage or history of. Screenin:17 [facility] ED Fall Risk Assessment (Adult) History of falling in the last 3 months, jb4 including since admission No falls in past 3 months (0 pts) Confusion or Disorientation No (0 pts). Abuse screen: Denies threats or abuse. Nutritional screening: No deficits noted. Tuberculosis screening: No symptoms or risk factors identified. Assessment: 22:17 Reassessment: Patient appears in no apparent distress at this time. Patient and/or jb4 family updated on plan of care and expected duration. Pain level reassessed. Patient is alert, oriented x 3, equal unlabored respirations, skin warm/dry/pink. Vital Signs: 21:55 BP 137 / 93; Pulse 76; Resp 18; Temp 98.3; Pulse Ox 100% on R/A; Weight 77.11 kg; mb9 Height 6 ft. 0 in. ; Pain 6/10; 21:55 Body Mass Index 23.06 (77.11 kg, 182.88 cm) mb9 21:55 Pain Scale: Adult mb9 ED Course: 21:53 Patient arrived in ED. gm2 21:55 Arm band placed on. mb9 21:57 Triage completed. mb9 21:59 [facility] sb4 21:59 Rick Kwong MD is Attending Physician. sb4 22:01 Sudeep Sotelo DDS is Referral Physician. sb4 22:17 Patient has correct armband on for positive identification. jb4 22:17 No provider procedures requiring assistance completed. Patient did not have IV access jb4 during this emergency room visit. Administered Medications: 22:03 Drug: [place] PO 10 mg-325 mg 1 tabs PO once Route: PO; jb4 22:17 Drug: Dexamethasone IM 10 mg IM once Route: IM; Site: right deltoid; jb4 Outcome: 22:02 Discharge ordered by . sb4 22:17 Discharged to home ambulatory, jb4 22:17 Condition: stable 22:17 Discharge instructions given to patient, Instructed on discharge instructions, follow up and referral plans. no drinking with medication, no driving heavy equipment, medication usage, Demonstrated understanding of instructions, follow-up care, medications, Prescriptions given X 1, 22:18 Patient left the ED. jb4 Signatures: Lebron Scott RN RN jb4 Natalie Arriaza PA-C PA-C sb4 Anita Garibay, RN RN mb9 Deana Stovall 2
--- NOTE | 2023-05-13 22:02 | EDPHYS ---
Physician Documentation [facility] Name: Elliott Vila Age: 37 yrs Sex: Male : 1985 Arrival Date: 05/13/2023 Time: 21:49 Bed IW1 Private MD: ED Physician Rick Kwong HPI: 05/13 23:02 This 37 yrs old Male presents to ER via Ambulatory with complaints of sb4 Toothache. 23:03 patient was seen here yesterday, by me, for a cracked tooth. I gave him 1 dose of sb4 augmentin and a prescription for amoxicillin last night. he has been taking the medication but states his pain is not improving. states he has pain radiating to his ear and worsens when he bends over. has been taking tylenol and motrin without significant relief. states he is going to the dentist on when he gets paid. Historical: - Allergies: 21:57 NKA; mb9 - Home Meds: 21:57 None [Active]; mb9 - PMHx: 21:57 None; mb9 - PSHx: 21:57 inguinal hernia repair; mb9 - Immunization history:: Adult Immunizations up to date. - Social history:: Smoking status: Patient denies any tobacco usage or history of. ROS: 23:03 Constitutional: Negative for fever, chills, and weight loss, sb4 23:03 ENT: Positive for dental pain, 23:03 All other systems are negative, Exam: 23:03 Constitutional: This is a well developed, well nourished patient who is awake, alert, sb4 and in no acute distress. Head/Face: Normocephalic, atraumatic. Eyes: Extra-ocular motions intact. Periorbital areas with no swelling, redness, or edema. Skin: Warm, dry with normal turgor. Normal color with no rashes, no lesions, and no evidence of cellulitis. MS/ Extremity: Pulses equal, no cyanosis. Neurovascular intact. Full, normal range of motion. 23:03 ENT: Dental exam: dental caries, fractured teeth are noted, specifically the lower right first bicuspid (#28), Vital Signs: 21:55 BP 137 / 93; Pulse 76; Resp 18; Temp 98.3; Pulse Ox 100% on R/A; Weight 77.11 kg; mb9 Height 6 ft. 0 in. ; Pain 6/10; 21:55 Body Mass Index 23.06 (77.11 kg, 182.88 cm) mb9 21:55 Pain Scale: Adult mb9 MDM: 21:59 Patient medically screened. sb4 23:03 Data reviewed: vital signs, nurses notes, and as a result, I will discharge patient. sb4 Counseling: I had a detailed discussion with the patient and/or guardian regarding the historical points, exam findings, and any diagnostic results supporting the discharge/admit diagnosis, the need for outpatient follow up, a dentist, to return to the emergency department if symptoms worsen or persist or if there are any questions or concerns that arise at home. Administered Medications: 22:03 Drug: [place] PO 10 mg-325 mg 1 tabs PO once Route: PO; jb4 22:17 Drug: Dexamethasone IM 10 mg IM once Route: IM; Site: right deltoid; jb4 Disposition: 05/14 04:23 Co-signature as Attending Physician, Rick Kwong MD I agree with the assessment sp4 and plan of care. I reviewed the patient's care provided by the Advanced Practice Provider and agree with the diagnosis and treatment plan. Disposition Summary: 05/13/23 22:02 Discharge Ordered Notes: Location: Home sb4 Problem: an ongoing problem sb4 Symptoms: are unchanged sb4 Condition: Stable sb4 Diagnosis - Dental pain sb4 Followup: sb4 - With: Sudeep Sotelo DDS - When: As needed - Reason: Recheck today's complaints, Re-evaluation by your physician Discharge Instructions: - Discharge Summary Sheet sb4 - Dental Pain, [id number] sb4 Forms: - Medication Reconciliation Form sb4 - Thank You Letter sb4 - Antibiotic Education sb4 - Prescription Opioid Use sb4 - Patient Portal Instructions sb4 - Leadership Thank You Letter sb4 Prescriptions: - acetaminophen-codeine 300-15 mg Oral tablet - take 1 tablet ORAL route every 6 hours As needed; 12 tablet; Refills: 0, sb4 Product Selection Permitted Signatures: Lebron Scott RN RN jb4 Natalie Arriaza PA-C PA-C sb4 Anita Garibay RN RN mb9 Rick Kwong MD MD sp4
[2023-05-14 04:00] VITALS: BP 137/93; TEMP 98.3; O2SAT 100
== END ==
LOC: ER 21:49
DX: K08.89 Other specified disorders of teeth and supporting structures (principal)
CPT/HCPCS: J1100

== ENCOUNTER 2024-07-29 11:18 | Emergency (ER) | payer SELFPAY ==
--- OUTSIDE RECORDS SUMMARY | 2024-07-29 11:20 | XMS REPORT | Continuity of Care Document ---
Author Name Unknown Address [address] [place] [address] Organization [facility] Address [address] [place] [address] Care Team Providers Care Body Press Operator Name Role Phone Sia Mantilla Primary Care Physician [phone] Lolly Eaton MD Attending Clinician [phone] Payers Payer Name Policy Type Policy Number Effective Date Expirati on Date Source Social History Social Habit Start Date Stop Date Quantity Comments Source Sex Assigned At 1985 00:00:00 1985 00:00:00 [facility] Smoking Status Start Date Stop Date Source Unknown if ever smoked [facility] Encounters Start Date/Time End Date/Time Encounter Type Admission Type Attending Clinicians Care Facility Care Department Encounter ID Source 2021-05-16 00:00:00 2021-05-16 00:00:00 Telephone Lolly Eaton [facility] [id number] [facility]
[2024-07-29] MEDS ORDERED: LIDOCAINE 1% 20 ML MDV ONE (12:52)
--- NOTE | 2024-07-29 13:27 | EDPHYS ---
Physician Documentation [facility] Name: Elliott Vila Age: 39 yrs Sex: Male : 1985 Arrival Date: 07/29/2024 Time: 11:18 Bed 11 Private MD: ED Physician Uziel Marr HPI: 07/29 11:43 This 39 yrs old Male presents to ER via Unassigned with complaints of finger ms3 swelling. 11:43 39-year-old male with no past medical history presents to the emergency department left ms3 middle finger pain and swelling that began yesterday. Patient states he took Tylenol without relief. Patient has not experienced the symptoms previously. Patient states his discomfort is an 8/10 at baseline and increases to 10 out of 10 with hitting his finger on something.. Historical: - Allergies: 11:55 NKA; iw - PSHx: 11:55 inguinal hernia repair; iw - Immunization history:: Adult Immunizations not up to date. - Infectious Disease History:: Denies. - Social history:: Smoking status: Reported history of juuling and/or vaping. ROS: 11:43 Constitutional: Negative for fever, and chills. Cardiovascular: Negative for chest ms3 pain, and palpitations. Respiratory: Negative for shortness of breath, cough, wheezing, and pleuritic chest pain, Abdomen/GI: Negative for abdominal pain, nausea, vomiting, diarrhea, and constipation, 11:43 MS/extremity: Positive for Left middle finger swelling and pain, Exam: 11:43 Constitutional: This is a well developed, well nourished patient who is awake, alert, ms3 and in no acute distress. Cardiovascular: Regular rate and rhythm with a normal S1 and S2. No gallops, murmurs, or rubs. Normal PMI, no JVD. No pulse deficits. Respiratory: Lungs have equal breath sounds bilaterally, clear to auscultation and percussion. No rales, rhonchi or wheezes noted. No increased work of breathing, no retractions or nasal flaring. Abdomen/GI: Soft, non-tender, with normal bowel sounds. No distension or tympany. No guarding or rebound. No evidence of tenderness throughout. 11:43 Skin: Mild erythema and swelling around left middle finger eponychia. Vital Signs: 11:54 BP 121 / 95; Pulse 99; Resp 16; Temp 98.1; Pulse Ox 100% on R/A; Weight 74.84 kg; iw Height 6 ft. 0 in. ; Pain 6/10; 11:54 Body Mass Index 22.38 (74.84 kg, 182.88 cm) iw 11:54 Pain Scale: Adult iw Procedures: 13:38 I \T\ D: Incision and drainage was performed for an abscess of the left Finger Prepped ms3 with alcohol, Anesthetized with 6 ml's 1% Lidocaine. Incised with #11 blade. Drained small amount bloody fluid. Dressing: Band-aid the patient tolerated the procedure well. MDM: 11:42 Medical Screening Exam initiated ms3 11:43 Differential diagnosis: Paronychia. ms3 13:38 Data reviewed: vital signs, nurses notes, and as a result, I will discharge patient. I ms3 considered the following discharge prescriptions or medication management in the emergency department Medications were administered in the Emergency Department. See MAR. Counseling: I had a detailed discussion with the patient and/or guardian regarding the historical points, exam findings, and any diagnostic results supporting the discharge/admit diagnosis, the need for outpatient follow up. Special discussion: I discussed with the patient/guardian in detail that at this point there is no indication for admission to the hospital. It is understood, however, that if the symptoms persist or worsen the patient needs to return immediately for re-evaluation. ED course: I\T\D performed and hemostatic after procedure. Minimal purulent exudate. Patient to follow-up with Dr. Fuentes in 2 to 3 days. Patient understands agrees with plan. Patient given prescription for Keflex. All questions were answered. Return precautions discussed include worsening symptoms, or any other concerns. 07/29 11:43 Order name: [facility]. Order: Will need room for I\T\D; Complete Time: 12:38 ms3 Administered Medications: 13:00 Drug: Lidocaine Infiltration (1 %) 20 ml 20 ml Infiltration once; to bedside {Note: iw admin by Dr. Marr .} Volume: 20 ml; Route: Infiltration; Disposition Summary: 07/29/24 13:26 Discharge Ordered Notes: Location: Home ms3 Condition: Stable ms3 Diagnosis - Left middle finger paronychia ms3 Followup: ms3 - With: FuentesJake gonzalez DO - When: 2 - 3 days - Reason: Re-evaluation by your physician Discharge Instructions: - Discharge Summary Sheet ms3 Forms: - Work release form iw - Medication Reconciliation Form ms3 - Antibiotic Education ms3 - Prescription Opioid Use ms3 - Patient Portal Instructions ms3 - Leadership Thank You Letter ms3 Prescriptions: - Cephalexin 500 mg Oral capsule - take 1 capsule ORAL route every 6 hours for 10 days; 40 capsule; Refills: 0, ms3 Product Selection Permitted Signatures: Arlet Servin RN RN iw Uziel Marr DO DO ms3
--- NOTE | 2024-07-29 13:27 | ER ---
Nurse's Notes [facility] Name: Elliott Vila Age: 39 yrs Sex: Male : 1985 Arrival Date: 07/29/2024 Time: 11:18 Bed 11 Private MD: Diagnosis: Left middle finger paronychia Presentation: 07/29 11:54 Chief complaint: Patient states: left middle finger swelling and pain since yesterday. iw Coronavirus screen: At this time, the client does not indicate any symptoms associated with coronavirus-19. Ebola Screen: No symptoms or risks identified at this time. Initial Sepsis Screen: Does the patient meet any 2 criteria? No. Patient's initial sepsis screen is negative. Does the patient have a suspected source of infection?. Risk Assessment: Do you want to hurt yourself or someone else? Patient reports no desire to harm self or others. Onset of symptoms was July 28, 2024. 11:54 Method Of Arrival: Ambulatory iw 11:54 Acuity: SHIMA 4 iw Historical: - Allergies: 11:55 NKA; iw - PSHx: 11:55 inguinal hernia repair; iw - Immunization history:: Adult Immunizations not up to date. - Infectious Disease History:: Denies. - Social history:: Smoking status: Reported history of juuling and/or vaping. Vital Signs: 11:54 BP 121 / 95; Pulse 99; Resp 16; Temp 98.1; Pulse Ox 100% on R/A; Weight 74.84 kg; iw Height 6 ft. 0 in. ; Pain 6/10; 11:54 Body Mass Index 22.38 (74.84 kg, 182.88 cm) iw 11:54 Pain Scale: Adult iw ED Course: 11:20 Patient arrived in ED. al6 11:33 Uziel Marr DO is Attending Physician. ms3 11:55 Triage completed. iw 11:55 Arm band placed on. iw 12:37 Arlet Servin, RN is Primary Nurse. iw 13:26 Jake Fuentes DO is Referral Physician. ms3 Administered Medications: 13:00 Drug: Lidocaine Infiltration (1 %) 20 ml 20 ml Infiltration once; to bedside {Note: iw admin by Dr. Marr .} Volume: 20 ml; Route: Infiltration; Outcome: 13:26 Discharge ordered by . ms3 14:00 Patient left the ED. iw Signatures: Arlet Servin, RN RN iw Uziel Marr DO DO ms3 Nita Brower al6
[2024-07-29 14:50] VITALS: BP 121/95; TEMP 98.1; O2SAT 100
== END 2024-07-29 14:00 | disposition home or self-care (01) ==
LOC: ER 11:18
PROC: 0H9GXZZ Drainage of Left Hand Skin, External Approach (ICD-10-PCS; principal; 2024-07-29)
DX: L03.012 Cellulitis of left finger (principal)
CPT/HCPCS: 99282; J2003

== ENCOUNTER 2024-07-31 01:07 | Emergency (ER) | payer OTHER, SELFPAY ==
[2024-07-31] MEDS ORDERED: HYDROCODONE/APAP 5/325 MG TAB ONE (02:09)
[2024-07-31] MEDS ORDERED: LIDOCAINE 1% MPF 5 ML VIAL ONE (02:09)
--- NOTE | 2024-07-31 03:33 | EDPHYS ---
Physician Documentation [facility] Name: Elliott Vila Age: 39 yrs Sex: Male : 1985 Arrival Date: 07/31/2024 Time: 01:07 Bed 9 Private MD: ED Physician Rayshawn Gonsalez HPI: 07/31 03:26 This 39 yrs old Male presents to ER via Ambulatory with complaints of FINGER rn INFECTION. 03:26 The patient or guardian reports pain. Modifying factors: The symptoms are alleviated by rn nothing, the symptoms are aggravated by movement. The patient has experienced a previous episode. Patient seen here yesterday, had incision and drainage of left middle finger paronychia. Placed on Keflex and discharged home. Patient returns with increased swelling and pain to distal left middle finger. Reports pain along nailbed and near tip of finger. No pain along flexor surface. No fever or chills.. Historical: - Allergies: 01:40 NKA; mb12 - PSHx: 01:40 inguinal hernia repair; mb12 - Immunization history:: Client reports receiving the 2nd dose of the Covid vaccine, Last tetanus immunization: < 10 years ago Flu vaccine is up to date. - Infectious Disease History:: Denies. - Family history:: not pertinent. - Hospitalizations: : No recent hospitalization is reported. ROS: 03:28 Constitutional: Negative for fever, chills, and weight loss, MS/Extremity: Positive for rn pain to the left distal middle finger along nailbed Exam: 03:28 Constitutional: This is a well developed, well nourished patient who is awake, alert, rn appears uncomfortable, holding left hand MS/ Extremity: Pulses equal, no cyanosis. Neurovascular intact. Paronychia evident along the left middle finger nailbed. No evidence of felon. No tenderness along flexor sheath. Majority of tenderness on dorsal side of the middle finger. Fluctuance noted along nailbed. Vital Signs: 01:36 BP 154 / 97; Pulse 109; Resp 17; Temp 98.7; Pulse Ox 100% ; Pain 9/10; mb12 01:40 BP 147 / 94; Pulse 102; Resp 19; Temp 98.7; Pain 9/10; mb12 01:49 BP 138 / 90; Pulse 101; Resp 17; Pulse Ox 99% ; mb12 04:11 BP 126 / 88; Pulse 99; Resp 18; Pulse Ox 100% ; dd2 01:36 Pain Scale: Adult mb12 01:40 Pain Scale: Adult mb12 Procedures: 03:25 I \T\ D: Incision and drainage was performed for an abscess of the left Middle finger rn Prepped with Betadine, Anesthetized with 5 ml's 1% Lidocaine. Incised with 18-gauge needle. Drained small amount purulent fluid. bloody fluid. Dressing: sterile 4x4 gauze, the patient tolerated the procedure well. Nerve block: (digital) of palmar aspect of proximal phalanx of left middle finger Medication: Lidocaine 1% without epinephrine Amount: 5 mls were injected, Effect: the patient has resolution of the pain, Set up for procedure. Performed by Rayshawn Gonsalez MD Patient tolerated well. MDM: 01:12 Medical Screening Exam initiated rn 03:28 Differential diagnosis: Paronychia, cellulitis of finger. Data reviewed: vital signs, rn nurses notes, and as a result, I will discharge patient. Counseling: I had a detailed discussion with the patient and/or guardian regarding the historical points, exam findings, and any diagnostic results supporting the discharge/admit diagnosis, the need for outpatient follow up, to return to the emergency department if symptoms worsen or persist or if there are any questions or concerns that arise at home. Response to treatment: the patient's symptoms have markedly improved after treatment. Special discussion: I discussed with the patient/guardian in detail that at this point there is no indication for admission to the hospital. It is understood, however, that if the symptoms persist or worsen the patient needs to return immediately for re-evaluation. Based on the history and exam findings, there is no indication for further emergent testing or inpatient evaluation. I discussed with the patient/guardian the need to see the hand specialist for further evaluation of the symptoms. ED course: Patient with marked improvement after digital block and incision and drainage. Moderate amount of purulence obtained. Patient asked to explore fingertip pad as well, I used 21 g needle to explore and rule out felon. No evidence of flexor tenosynovitis at this time. Advised patient to return or seek out hand surgeon if symptoms do not improve on clindamycin. Given IV clindamycin here.. Administered Medications: 02:13 Drug: HYDROcodone-acetaminophen PO 5 mg-325 mg 1 tabs PO once Route: PO; mb12 04:10 Follow up: Response: No adverse reaction; Marked relief of symptoms dd2 03:43 CANCELLED (Physician Discretion): [id number] mg IM once dd2 03:43 Not Given (Physician Discretion): [id number] mg IM once dd2 03:44 Drug: Ketorolac IVP 30 mg IVP once Route: IVP; Site: right antecubital; dd2 04:10 Follow up: Response: No adverse reaction; Marked relief of symptoms dd2 03:44 Drug: Clindamycin IVPB 900 mg IVPB once over 30 mins; (mix in 50 mL) Route: IVPB; dd2 Infused Over: 30 mins; Site: right antecubital; 04:10 Follow up: IV Status: Completed infusion; IV Intake: 50ml dd2 03:45 Drug: Lidocaine Infiltration (1 %) 1 vials 5 ml Infiltration once; to bedside {Note: dd2 ADMINISTERED BY DR. GONSALEZ.} Volume: 5 ml; Route: Infiltration; Site: affected area; Disposition Summary: 07/31/24 03:33 Discharge Ordered Notes: Location: Home rn Problem: new rn Symptoms: have improved rn Condition: Stable rn Diagnosis - Paronychia left 3rd finger rn - Cellulitis of left finger rn Followup: rn - With: Private Physician - When: As needed - Reason: Recheck today's complaints, Re-evaluation by your physician Discharge Instructions: - Discharge Summary Sheet rn - Cellulitis, Adult rn - Paronychia rn Forms: - Medication Reconciliation Form rn - Antibiotic furniture manager - Prescription Opioid Use rn - Patient Portal Instructions rn - Leadership Thank You Letter rn - Work release form dd2 Prescriptions: - gabapentin 100 mg Oral capsule - take 1 capsule ORAL route every 12 hours As needed; 14 capsule; Refills: 0, rn Product Selection Permitted - Clindamycin HCl 300 mg Oral Capsule - take 1 capsule ORAL route every 6 hours for 10 days; 40 capsule; Refills: 0, rn Product Selection Permitted - Tramadol 50 mg Oral Tablet - take 1 tablet ORAL route every 8 hours as needed; 12 tablet; Refills: 0, rn Product Selection Permitted Signatures: Rayshawn Gonsalez MD MD rn DAVIS, DIANA, RN RN dd2 Cheri Su 12 Corrections: (The following items were deleted from the chart) 03:43 03:27 Clindamycin IM 600 mg IM once ordered. rn dd2
--- NOTE | 2024-07-31 03:33 | ER ---
Nurse's Notes [facility] Name: Elliott Vila Age: 39 yrs Sex: Male : 1985 Arrival Date: 07/31/2024 Time: 01:07 Bed 9 Private MD: Diagnosis: Paronychia left 3rd finger;Cellulitis of left finger Presentation: 07/31 01:32 Chief complaint:. mb12 01:36 Chief complaint: Patient states: Finger Pain: left middle finger. Pt reports being here mb12 2-3 days ago, had finger lanced, was sent home on abx. Took 4 tylenol but has not helped w/ pain. Pt reports taking double the dose of prescribed abx in order to ayers the process of healing, but states swelling and pain increasing. Coronavirus screen: Vaccine status: Patient reports receiving the 2nd dose of the covid vaccine. Client denies travel out of the [place] in the last 14 days. At this time, the client does not indicate any symptoms associated with coronavirus-19. Ebola Screen: No symptoms or risks identified at this time. Initial Sepsis Screen: Does the patient meet any 2 criteria? No. Patient's initial sepsis screen is negative. Does the patient have a suspected source of infection?. Onset of symptoms was July 28, 2024. 01:36 Method Of Arrival: Ambulatory 12 01:36 Acuity: SHIMA 4 mb12 Triage Assessment: 01:40 General: Appears uncomfortable, Behavior is anxious, restless. Pain: Complains of pain mb12 in palmar aspect of distal phalanx of left middle finger Pain currently is 9 out of 10 on a pain scale. Quality of pain is described as throbbing, Pain began 2-3 days ago. Neuro: No deficits noted. Level of Consciousness is awake, alert, obeys commands, Oriented to person, place, time, situation. Cardiovascular: No deficits noted. Respiratory: No deficits noted. Historical: - Allergies: 01:40 NKA; mb12 - PSHx: 01:40 inguinal hernia repair; mb12 - Immunization history:: Client reports receiving the 2nd dose of the Covid vaccine, Last tetanus immunization: < 10 years ago Flu vaccine is up to date. - Infectious Disease History:: Denies. - Family history:: not pertinent. - Hospitalizations: : No recent hospitalization is reported. Screenin:43 [facility] ED Fall Risk Assessment (Adult) History of falling in the last 3 months, mb12 including since admission No falls in past 3 months (0 pts) Confusion or Disorientation No (0 pts) Intoxicated or Sedated No (0 pts) Impaired Gait No (0 pts) Mobility Assist Device Used No (0 pt) Altered Elimination No (0 pt) Score/Fall Risk Level 0 - 2 = Low Risk Oriented to surroundings, Maintained a safe environment, Educated pt \T\ family on fall prevention, incl call for assistance when getting out of bed, Assessed \T\ reinforced patient's understanding of fall precautions, Provided non-skid footwear, Hourly rounding (assess needs \T\ fall precautionary measures) done. Abuse screen: Denies threats or abuse. Denies injuries from another. Nutritional screening: No deficits noted. Tuberculosis screening: No symptoms or risk factors identified. Assessment: 04:11 Reassessment: Patient and/or family updated on plan of care and expected duration. Pain dd2 level reassessed. Patient is alert, oriented x 3, equal unlabored respirations, skin warm/dry/pink. Patient states feeling better. Patient states symptoms have improved. Vital Signs: 01:36 BP 154 / 97; Pulse 109; Resp 17; Temp 98.7; Pulse Ox 100% ; Pain 9/10; mb12 01:40 BP 147 / 94; Pulse 102; Resp 19; Temp 98.7; Pain 9/10; mb12 01:49 BP 138 / 90; Pulse 101; Resp 17; Pulse Ox 99% ; mb12 04:11 BP 126 / 88; Pulse 99; Resp 18; Pulse Ox 100% ; dd2 01:36 Pain Scale: Adult mb12 01:40 Pain Scale: Adult mb12 ED Course: 01:10 Patient arrived in ED. [id number] 01:12 Rayshawn Hightower MD is Attending Physician. rn 01:31 Cheri Su is Primary Nurse. mb12 01:40 Triage completed. mb12 01:43 Patient has correct armband on for positive identification. Bed in low position. Call mb12 light in reach. Side rails up X 1. 04:04 [place], RN is Primary Nurse. dd2 Administered Medications: 02:13 Drug: HYDROcodone-acetaminophen PO 5 mg-325 mg 1 tabs PO once Route: PO; mb12 04:10 Follow up: Response: No adverse reaction; Marked relief of symptoms dd2 03:43 CANCELLED (Physician Discretion): [id number] mg IM once dd2 03:43 Not Given (Physician Discretion): [id number] mg IM once dd2 03:44 Drug: Ketorolac IVP 30 mg IVP once Route: IVP; Site: right antecubital; dd2 04:10 Follow up: Response: No adverse reaction; Marked relief of symptoms dd2 03:44 Drug: Clindamycin IVPB 900 mg IVPB once over 30 mins; (mix in 50 mL) Route: IVPB; dd2 Infused Over: 30 mins; Site: right antecubital; 04:10 Follow up: IV Status: Completed infusion; IV Intake: 50ml dd2 03:45 Drug: Lidocaine Infiltration (1 %) 1 vials 5 ml Infiltration once; to bedside {Note: dd2 ADMINISTERED BY DR. HIGHTOWER.} Volume: 5 ml; Route: Infiltration; Site: affected area; Intake: 04:10 IV: 50ml; Total: 50ml. dd2 Outcome: 03:33 Discharge ordered by . rn 04:11 Patient left the ED. dd2 Signatures: Rayshawn Hightower MD MD rn Jeffries, Jennifer [id number] [place] RIVER RN RN dd2 Cheri Su [facility]
[2024-07-31] MEDS ORDERED: CLINDAMYCIN 900MG/D5W 900 MG/50 ML IVPB IV ONE (03:34)
[2024-07-31] MEDS ORDERED: KETOROLAC 30 MG/ML INJ ONE (03:34)
[2024-07-31 04:28] VITALS: BP 126/88; TEMP 98.7; O2SAT 100
== END 2024-07-31 04:11 | disposition home or self-care (01) ==
LOC: ER 01:07
PROC: 0H9GXZZ Drainage of Left Hand Skin, External Approach (ICD-10-PCS; principal; 2024-07-31)
DX: L03.012 Cellulitis of left finger (principal)
CPT/HCPCS: 96365; 64450; 96375; 99284; 10060; J2003

== ENCOUNTER 2024-11-28 07:02 | Emergency (ER) | payer OTHER ==
--- OUTSIDE RECORDS SUMMARY | 2024-11-28 07:09 | XMS REPORT | Continuity of Care Document ---
Author Name Unknown Address [address] [place] [address] [facility] Address 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 Name Role Phone SIA MONAE Primary Care Physician Unavail able Timothy Jackson Attending Clinician [phone] Graciela Lopez DO Attending Clinician Srinivasan LACKEY, Celina King Attending Clinician LASHA HILLS Attending Clinician Unavailable Marva HERNÁNDEZ, Ghassan Attending Clinician Lolly Eaton MD Attending Clinician [phone] LASHA HILLS Admitting Clinician Unavailable Payers Payer Name Policy Type Policy Number Effective Date Expirati on Date Source [facility] [facility] [id number] 2024 00:00:00 2024-07 00:00:00 Problems Condition Name Condition Details Condition Category Status Onset Date Resolution Date Last Treatment Date Treating Clinician Comments Source Finger swelling Finger swelling Disease Active 08-03 00:00: 00 [facility] Allergies, Adverse Reactions, Alerts Allergy Name Allergy Type Status Severity Reaction(s) Onset Date Inactive Date Treating Clinician Comments Source NO KNOWN ALLERGIE S Drug Class Active [facility] Social History Social Habit Start Date Stop Date Quantity Comments Source [facility] Alcoholic beverage intake 2024-08-30 00:00:00 2024-08-30 00:00:00 Ex-drinker (finding) [facility] History of Social function 2024-08-04 00:00:00 2024-08-04 00:00:00 [facility] Tobacco use and exposure 2024-08-03 00:00:00 2024-08-03 00:00:00 Smokeless tobacco non-user [facility] Education 2024-08-03 00:00:00 2024-08-03 00:00:00 21 [facility] Tobacco Comment 2024-08-03 00:00:00 2024-08-03 00:00:00 Vapes [facility] Sex assigned at 1985 00:00:00 1985 00:00:00 [facility] Smoking Status Start Date Stop Date Source Unknown if ever smoked [facility] Never smoked tobacco [facility] Medications Ordered Medication Name Filled Medication Name Start Date Stop Date Current Medication? Ordering Clinician Indication Dosage Frequency Signature (SIG) Comments Components Source alteplase (CATHFLO ACTIVASE) injection 2 mg 08-30 20:45: 00 08-31 08:44 :00 Yes 2mg 2 mg, Intravenou s, ONCE, 1 dose, On 08/30/24 at 1545, Routine [facility] lisinopriL 5 mg tablet 08-08 00:00: 00 09-08 04:59 :00 No [id number] 5mg Take 1 tablet by mouth in the morning for 30 days. [facility] insulin glargine 100 unit/mL injection 08-08 00:00: 00 09-08 04:59 :00 No [id number] 18U inject 18 Units under the skin in the morning for 30 days. [facility] morphine (2 mg/mL) injection 2 mg morphine (2 mg/mL) injection 2 mg 08-07 04:15: 00 08-07 03:26 :00 No 2mg 2 mg, Slow IV Push, ONCE, 1 dose, On Sun08/06/24 at 2315, Routine [facility] Blood-Gluco se Sensor (FREESTYLE PETE 3 SENSOR) Lisa 08-07 00:00: 00 Yes [id number] Use as directed [facility] Blood-Gluco se Meter (FREESTYLE FREEDOM) Kit 08-07 00:00: 00 Yes [id number] Use as directed [facility] atorvastati n 40 mg tablet 08-07 00:00: 00 09-07 04:59 :00 No [id number] 40mg Take 1 tablet by mouth at bedtime for 30 days. [facility] HYDROcodone -acetaminop hen 5-325 mg tablet 08-07 00:00: 00 08-15 04:59 :00 No [id number] 1{tbl} Take 1 tablet by mouth every 6 (six) hours as needed for Pain (scale 7-10) for up to 7 days. Indication s: acute pain [facility] lidocaine 1% (PF) (XYLOCAINE) injection 5 mL 08-06 16:35: 03 08-07 15:30 :00 No 5mL 5 mL, Subcutaneo us, PRN, 1 dose, Starting on Sun08/06/24 at 1135, Until Mirna 08/07/24 at 1030, Routine, Local anesthesia [facility] NaCl 0.9% (NS) injection 10 mL 08-06 16:35: 03 08-07 20:01 :37 No 10mL 10 mL, Slow IV Push, PRN, Starting on Sun08/06/24 at 1135, Until Mirna 08/07/24 at 1501, Routine, line maintenanc e [facility] HYDROcodone -acetaminop hen (NORCO) 10-325 mg tablet 1 tablet HYDROcodone -acetaminop hen (NORCO) 10-325 mg tablet 1 tablet 08-06 14:54: 55 08-07 20:01 :37 No 1{tbl} 1 tablet, Oral, Q6HPRN, Starting on Sun08/06/24 at 0954, Until Sun08/07/24 at 1501, Routine, Pain (scale 7-10) [facility] morphine (2 mg/mL) injection 2 mg morphine (2 mg/mL) injection 2 mg 08-06 05:32: 05 08-06 14:55 :21 No 2mg 2 mg, Slow IV Push, Q4HPRN, Starting on Sun08/06/24 at 0032, Until Sun08/06/24 at 0955, Routine, Pain (scale 7-10) [facility] bupivacaine (preserv free) (SENSORCAIN E MPF) 0.25 % (2.5 mg/mL) injection 08-05 14:40: 00 Yes PRN, Starting on Sun08/05/24 at 0940, Until Discontinu ed, Routine, Intra-op [facility] sodium chloride 0.9 % irrigation solution 08-05 14:30: 00 Yes PRN, Starting on Sun08/05/24 at 0930, Until Discontinu ed, Intra-op [facility] insulin glargine (LANTUS U-100) injection 18 Units insulin glargine (LANTUS U-100) injection 18 Units 08-05 14:00: 00 Yes 18U 18 Units, Subcutaneo us, DAILY, First dose (after last modificati on) on Sun08/05/24 at 0900, Until Discontinu ed, Routine [facility] morphine (2 mg/mL) injection 2 mg morphine (2 mg/mL) injection 2 mg 08-05 01:48: 08 08-06 01:47 :08 No 2mg 2 mg, Slow IV Push, Q4HPRN, Starting on Sun08/04/24 at 2047, Until Sun08/05/24 at 2046, Routine, Pain (scale 7-10) [facility] traZODone (DESYREL) tablet 25 mg traZODone (DESYREL) tablet 25 mg 08-04 23:35: 35 08-07 20:01 :37 No 25mg 25 mg, Oral, QHSPRN, Starting on Sun08/04/24 at 1835, Until Mirna 08/07/24 at 1501, Routine, Insomnia [facility] gadobenate dimeglumine (MULTIHANCE -15 mL) injection 14.1 mL 08-04 17:00: 00 08-04 16:55 :00 No [id number] .2mL/kg 14.1 mL (0.2 mL/kg ?70.5 kg), Intravenou s, ONCE, 1 dose, On Sun08/04/24 at 1200, Routine [facility] ALPRAZolam (XANAX) tablet 0.5 mg ALPRAZolam (XANAX) tablet 0.5 mg 08-04 06:03: 30 08-07 20:01 :37 No .5mg 0.5 mg, Oral, TIDPRN, Starting on Sun08/04/24 at 0103, Until Mirna 08/07/24 at 1501, Routine, Anxiety [facility] atorvastati n (LIPITOR) tablet 40 mg atorvastati n (LIPITOR) tablet 40 mg 08-04 02:00: 00 Yes 40mg 40 mg, Oral, QHS, First dose on Sun08/03/24 at 2100, Until Discontinu ed, Routine [facility] Sliding Scale Insulin - Lispro (HumaLOG) insulin lispro (human) (HumaLOG U-100) injection 2 Units 08-03 22:00: 00 08-07 20:01 :37 No 2U Subcutaneo us, TID MEALS+HS, First dose on Sun08/03/24 at 1700, Until Discontinu ed, Routine [facility] enoxaparin (LOVENOX) injection 40 mg enoxaparin (LOVENOX) injection 40 mg 08-03 22:00: 00 08-07 20:01 :37 No 40mg 40 mg, Subcutaneo us, DAILY, First dose on Sun08/03/24 at 1700, Until Discontinu ed, Routine [facility] lisinopriL (PRINIVIL,Z ESTRIL) tablet 5 mg lisinopriL (PRINIVIL,Z ESTRIL) tablet 5 mg 08-03 20:30: 00 Yes 5mg 5 mg, Oral, DAILY, First dose on Sun08/03/24 at 1530, Until Discontinu ed, Routine [facility] insulin glargine (LANTUS U-100) injection 15 Units insulin glargine (LANTUS U-100) injection 15 Units 08-03 20:30: 00 08-04 23:33 :00 No 15U 15 Units, Subcutaneo us, DAILY, First dose on Sun08/03/24 at 1530, Until Discontinu ed, Routine [facility] vancomycin (VANCOCIN) 1,500 mg in NaCl 0.9% (NS) 500 mL V2B IV Piggyback vancomycin (VANCOCIN) 1,500 mg in NaCl 0.9% (NS) 500 mL V2B IV Piggyback 08-03 19:00: 00 08-07 20:01 :37 No 1500mg 1,500 mg, IV Piggyback, Q8H ABX, First dose on Sun08/03/24 at 1400, Until Discontinu ed, Administer over 90 Minutes, 500 mL, Reason for Anti-Infec tive: Documented Infection, Documented Infection Site: Bone, Duration of therapy: 7 days [facility] NaCl 0.9% (NS) bolus infusion 1,000 mL 08-03 18:15: 00 08-03 18:56 :00 No 1000mL at 999 mL/hr, 1,000 mL, IV Infusion, ONCE, 1 dose, On [place] 08/03/24 at 1315, STAT [facility] glucagon HCL injection 1 mg 08-03 17:55: 06 08-07 20:01 :37 No 1mg [facility] dextrose 50 % in water (D50W) injection 25 mL 08-03 17:55: 06 08-07 20:01 :37 No 25mL [facility] ondansetron (ZOFRAN (PF)) injection 4 mg 08-03 17:54: 58 08-07 20:01 :37 No 4mg 4 mg, Slow IV Push, Q6HPRN, Starting on Sun08/03/24 at 1254, Until Sun08/07/24 at 1501, Administer over 2-5 Minutes, [address] [facility] morpHINE (4 mg/mL) injection 4 mg [id number] 17:54: 57 08-04 17:53 :57 No 4mg 4 mg, Slow IV Push, Q4HPRN, Starting on Sun08/03/24 at 1254, Until Sun08/04/24 at 1253, Routine, Pain (scale 7-10) [facility] HYDROcodone -acetaminop hen (NORCO 5) tablet 1 tablet HYDROcodone -acetaminop hen (NORCO 5) tablet 1 tablet 08-03 17:54: 55 08-05 17:53 :55 No 1{tbl} 1 tablet, Oral, Q6HPRN, Starting on Sun08/03/24 at 1254, Until Sun08/05/24 at 1253, Routine, Pain (scale 4-6) [facility] acetaminoph en (TYLENOL) tablet 650 mg 08-03 17:54: 50 08-07 20:01 :[address] [facility] ketorolac (TORADOL) injection 30 mg 08-03 17:30: 00 08-03 17:26 :00 No 30mg 30 mg, Slow IV Push, ONCE, 1 dose, On Sun08/03/24 at 1230, SYLVIA [facility] ceFEPIme (MAXIPIME) 1,000 mg in NaCl 0.9% (NS) 100 mL MINI-BAG 08-03 17:15: 00 08-03 17:56 :00 No 1000mg 1,000 mg, IV Piggyback, ONCE, 1 dose, On Sun08/03/24 at 1215, Administer over 30 Minutes, 100 mL, Reason for Anti-Infec tive: Documented Infection, Documented Infection Site: Bone, Duration of therapy: Once (ED) [facility] Vital Signs Vital Name Observation Time Observation Value Comments S ource Systolic blood pressure 2024-09-08 03:40:00 123 mm[Hg] [facility] Diastolic blood pressure 2024-09-08 03:40:00 84 mm[Hg] [facility] Heart rate 2024-09-08 03:40:00 103 /min [facility] Body temperature 2024-09-08 03:40:00 36.89 Radha [facility] Respiratory rate 2024-09-08 03:40:00 18 /min [facility] Body height 2024-09-08 03:40:00 182.9 cm [facility] Body weight 2024-09-08 03:40:00 72.576 kg [facility] BMI 2024-09-08 03:40:00 21.70 kg/m2 [facility] Oxygen saturation in Arterial blood by Pulse oximetry 2024-09-08 03:40:00 100 /min [facility] Systolic blood pressure 2024-08-30 19:53:00 137 mm[Hg] [facility] Diastolic blood pressure 2024-08-30 19:53:00 83 mm[Hg] [facility] Heart rate 2024-08-30 19:53:00 77 /min [facility] Body temperature 2024-08-30 19:53:00 36.89 Radha [facility] Respiratory rate 2024-08-30 19:53:00 16 /min [facility] Body height 2024-08-30 19:53:00 182.9 cm [facility] Body weight 2024-08-30 19:53:00 71.668 kg [facility] BMI 2024-08-30 19:53:00 21.43 kg/m2 [facility] Oxygen saturation in Arterial blood by Pulse oximetry 2024-08-30 19:53:00 100 /min [facility] Systolic blood pressure 2024-08-07 16:45:00 134 mm[Hg] [facility] Diastolic blood pressure 2024-08-07 16:45:00 98 mm[Hg] [facility] Heart rate 2024-08-07 16:45:00 84 /min [facility] Body temperature 2024-08-07 16:45:00 36.28 Radha [facility] Respiratory rate 2024-08-07 16:45:00 18 /min [facility] Oxygen saturation in Arterial blood by Pulse oximetry 2024-08-07 16:45:00 100 /min [facility] Body weight 2024-08-06 08:59:00 70.988 kg [facility] BMI 2024-08-06 08:59:00 21.23 kg/m2 [facility] Body height 2024-08-03 19:32:00 182.9 cm [facility] Systolic blood pressure 2024-08-05 15:30:00 113 mm[Hg] [facility] Diastolic blood pressure 2024-08-05 15:30:00 73 mm[Hg] [facility] Heart rate 2024-08-05 15:30:00 74 /min [facility] Respiratory rate 2024-08-05 15:30:00 13 /min [facility] Oxygen saturation in Arterial blood by Pulse oximetry 2024-08-05 15:30:00 98 /min [facility] Body temperature 2024-08-05 14:55:00 35.94 Radha [facility] Body weight 2024-08-05 08:03:00 70.489 kg [facility] BMI 2024-08-05 08:03:00 21.23 kg/m2 [facility] Body height 2024-08-03 19:32:00 182.9 cm [facility] Procedures Procedure Date / Time Performed Performing Clinician Source POCT GLUCOSE (AUTOMATED) 2024-08-07 16:46:00 Lasha Hills [facility] XR CHEST 1 VW 2024-08-07 16:42:25 Emery Vallecillo [facility] POCT GLUCOSE (AUTOMATED) 2024-08-07 12:33:00 Lasha Hills [facility] BASIC METABOLIC PANEL (NA, K, CL, CO2, GLUCOSE, BUN, CREATININE, CA) 2024-08-07 10:04:00 Emery Vallecillo [facility] CBC WITH DIFF 2024-08-07 10:04:00 Emery Vallecillo [facility] POCT GLUCOSE (AUTOMATED) 2024-08-07 08:48:00 Reinier [facility] POCT GLUCOSE (AUTOMATED) 2024-08-07 01:36:00 Ovdhiraj [facility] POCT GLUCOSE (AUTOMATED) 2024-08-06 21:26:00 Reinier [facility] POCT GLUCOSE (AUTOMATED) 2024-08-06 16:31:00 Ovdhiraj [facility] POCT GLUCOSE (AUTOMATED) 2024-08-06 16:31:00 [facility]ier [facility] POCT GLUCOSE (AUTOMATED) 2024-08-06 12:22:00 Ovdhir[facility] POCT GLUCOSE (AUTOMATED) 2024-08-06 12:22:00 Reinier [facility] BASIC METABOLIC PANEL (NA, K, CL, CO2, GLUCOSE, BUN, CREATININE, CA) 2024-08-06 09:56:00 [facility]ier [facility] VANCOMYCIN RANDOM LEVEL 2024-08-06 09:56:00 Reinier [facility] BASIC METABOLIC PANEL (NA, K, CL, CO2, GLUCOSE, BUN, CREATININE, CA) 2024-08-06 09:56:00 Reinier [facility] VANCOMYCIN RANDOM LEVEL 2024-08-06 09:56:00 Reinier [facility] POCT GLUCOSE (AUTOMATED) 2024-08-06 01:13:00 Ovdhiraj [facility] POCT GLUCOSE (AUTOMATED) 2024-08-06 01:13:00 Reinier [facility] POCT GLUCOSE (AUTOMATED) 2024-08-05 21:44:00 Ovdhiraj [facility] POCT GLUCOSE (AUTOMATED) 2024-08-05 21:44:00 Reinier [facility] POCT GLUCOSE (AUTOMATED) 2024-08-05 16:39:00 Reinier [facility] POCT GLUCOSE (AUTOMATED) 2024-08-05 16:39:00 [facility]ier [facility] POCT GLUCOSE (AUTOMATED) 2024-08-05 14:58:00 [facility]ier [facility] POCT GLUCOSE (AUTOMATED) 2024-08-05 14:58:00 Reinier [facility] TISSUE CULTURE(AEROBIC/ANAEROB IC) 2024-08-05 14:32:00 Marva [facility] TISSUE CULTURE(AEROBIC/ANAEROB IC) 2024-08-05 14:32:00 Marva [facility] WOUND CULTURE 2024-08-05 14:04:00 Marva [facility] FUNGUS (ROUTINE) CULTURE 2024-08-05 14:04:00 Marva [facility] WOUND CULTURE 2024-08-05 14:04:00 Marva [facility] FUNGUS (ROUTINE) CULTURE 2024-08-05 14:04:00 Marva [facility] INCISION AND DRAINAGE DIGIT HAND 2024-08-05 13:53:00 Marva [facility] INCISION AND DRAINAGE DIGIT HAND 2024-08-05 13:53:00 Marva [facility] POCT GLUCOSE (AUTOMATED) 2024-08-05 12:36:00 Reinier [facility] POCT GLUCOSE (AUTOMATED) 2024-08-05 12:36:00 Reinier [facility] POCT GLUCOSE (AUTOMATED) 2024-08-05 01:07:00 Reinier [facility] POCT GLUCOSE (AUTOMATED) 2024-08-05 01:07:00 [facility]ier [facility] POCT GLUCOSE (AUTOMATED) 2024-08-04 21:32:00 Reinier [facility] POCT GLUCOSE (AUTOMATED) 2024-08-04 21:32:00 Reinier [facility] POCT GLUCOSE (AUTOMATED) 2024-08-04 17:14:00 Ovdhiraj [facility] POCT GLUCOSE (AUTOMATED) 2024-08-04 17:14:00 Reinier, [facility] MR HAND LEFT W WO CONTRAST 2024-08-04 16:55:37 Ovdhiraj, [facility] MR HAND LEFT W WO CONTRAST 2024-08-04 16:55:37 Ovdhiraj, [facility] POCT GLUCOSE (AUTOMATED) 2024-08-04 12:20:00 Ovdhiraj [facility] POCT GLUCOSE (AUTOMATED) 2024-08-04 12:20:00 Reinier [facility] BASIC METABOLIC PANEL (NA, K, CL, CO2, GLUCOSE, BUN, CREATININE, CA) 2024-08-04 08:57:00 Reinier [facility] LIPID PANEL (30159)(TOTAL CHOLESTEROL, TRIGLYCERIDES, HDL) 2024-08-04 08:57:[facility] 2024-08-04 08:57:00 [facility]er [facility] CBC WITHOUT DIFF 2024-08-04 08:57:[address] [facility] BASIC METABOLIC PANEL (NA, K, CL, CO2, GLUCOSE, BUN, CREATININE, CA) 2024-08-04 08:57:00 Reinier [facility] LIPID PANEL (88211)(TOTAL CHOLESTEROL, TRIGLYCERIDES, HDL) 2024-08-04 08:57:00 [facility] VANCOM[facility]ANDOM LEVEL 2024-08-04 08:57:00 Reinier [facility] CBC WITHOUT DIFF 2024-08-04 08:57:[address] [facility] POCT GLUCOSE (AUTOMATED) 2024-08-04 01:09:00 [facility] ([facility]ATED) 2024-08-04 01:09:00 Ovdhiraj [facility] POCT GLUCOSE (AUTOMATED) 2024-08-03 21:34:00 Lasha Hills [facility] POCT GLUCOSE (AUTOMATED) 2024-08-03 21:34:00 Reinier [facility] COMP. METABOLIC PANEL (34871) 2024-08-03 17:12:00 Rian Colon [facility] CBC WITH DIFF 2024-08-03 17:12:00 [facility] GLYCOSYLATED HEMOGLOBIN (A1C) 2024-08-03 17:12:00 Lasha Hills [facility] COMP. METABOLIC PANEL (52290) 2024-08-03 17:12:00 Rian Colon [facility] CBC WITH DIFF 2024-08-03 17:12:00 [facility] GLYCOSYLATED HEMOGLOBIN (A1C) 2024-08-03 17:12:00 [facility] VW LEFT 2024-08-03 16:55:05 Rian Colon [facility] XR HAND 3+ VW LEFT 2024-08-03 16:55:05 Rian Colon [facility] Encounters Start Date/Time End Date/Time Encounter Type Admission Type Attending [facility] Care Department Encounter ID Source 2024-09-07 22:41:00 2024-09-08 00:01:00 Emergency Timothy Ervin [facility] [id number] [facility] 2024-08-30 14:57:00 2024-08-30 15:38:00 Emergency Graciela Lopez [facility] [id number] [id number] [facility] 2024-08-08 00:00:00 2024-08-08 15:26:00 Transition of Care Celina Mattson Marisa [facility] [id number] [id number] [facility] 2024-08-03 11:33:00 2024-08-07 15:00:00 Inpatient X LASHA HILLS [facility] PETER [id number] [facility] 2024-08-03 11:33:00 2024-08-07 15:00:00 Hospital Encounter X LASHA HILLS [facility] [id number] [facility] 2024-08-05 08:45:00 2024-08-05 10:33:00 Surgery RandalljovonGhassan [facility] [id number] [facility] 2021-05-16 00:00:00 2021-05-16 00:00:00 Telephone Lolly Eaton [facility] [id number] [id number] [id number] [facility] Results Test Description Test Time Test Comments Results Resul t Comments Source XR Chest 1 vw 1 19:23:08 ORDERING PHYSICIAN: EMERY VALLECILLO. HISTORY: R PICC placement verification TECHNIQUE: AP COMPARISON: None. FINDINGS: ?The right PICC line terminates at the SVC, 3 cm above thecavoatrial junction. Lungs: ?No focal consolidation is seen. Pleura: ?No effusion or pleural disease is seen. ?No pneumothorax. Mediastinum/Gena: ?No masses or adenopathy. Heart: ?The heart is not enlarged. Other: ?No acute osseous abnormality is seen[facility] 12:34:37* Test Item Value Reference Range Interpretation Comme nts POCT GLU (test code = 5061607086) 169 mg/dL 70-110 H Lab Interpretation (test cod e = 77264-1) [facility]24-[facility]-07 08:49:02* Test Item Value Reference Range Interpretation Comme nts POCT GLU (test code = 0251209764) 194 mg/dL 70-110 H Lab Interpretation (test cod e = 92167-8) Abnormal [facility] GLUCOSE (AUTOMATED)2024-08-07 01:37:30* Test Item Value Reference Range Interpretation Comme nts POCT GLU (test code = 1080364234) 331 mg/dL 70-110 H Lab Interpretation (test cod e = 59754-1) Abnormal [facility] GLUCOSE (AUTOMATED)2024-08-06 21:27:01* Test Item Value Reference Range Interpretation Comme nts POCT GLU (test code = 9021970203) 157 mg/dL 70-110 H Lab Interpretation (test cod e = 06460-9) Abnormal [facility] GLUCOSE (AUTOMATED)2024-08-06 16:32:04* Test Item Value Reference Range Interpretation Comme nts POCT GLU (test code = 4663793362) 222 mg/dL 70-110 H Lab Interpretation (test cod e = 55930-6) Abnormal [facility] GLUCOSE (AUTOMATED)2024-08-06 16:32:04* Test Item Value Reference Range Interpretation Comme nts POCT GLU (test code = 8957357802) 222 mg/dL 70-110 H Lab Interpretation (test cod e = 00311-1) Abnormal [facility] GLUCOSE (AUTOMATED)2024-08-06 12:23:31* Test Item Value Reference Range Interpretation Comme nts POCT GLU (test code = 2062286790) 210 mg/dL 70-110 H Lab Interpretation (test cod e = 63391-0) Abnormal [facility] GLUCOSE (AUTOMATED)2024-08-06 12:23:31* Test Item Value Reference Range Interpretation Comme nts POCT GLU (test code = 7638311746) 210 mg/dL 70-110 H Lab Interpretation (test cod e = 29201-5) Abnormal [facility] GLUCOSE (AUTOMATED)2024-08-06 01:14:29* Test Item Value Reference Range Interpretation Comme nts POCT GLU (test code = 9266948858) 275 mg/dL 70-110 H Lab Interpretation (test cod e = 88542-9) Abnormal [facility] GLUCOSE (AUTOMATED)2024-08-06 01:14:29* Test Item Value Reference Range Interpretation Comme nts POCT GLU (test code = 5675315293) 275 mg/dL 70-110 H Lab Interpretation (test cod e = 66844-6) [facility]-05 21:45:00* Test Item Value Reference Range Interpretation Comme nts POCT GLU (test code = 3413932815) 239 mg/dL 70-110 H Lab Interpretation (test cod e = 49088-9) [facility]24-08-05 21:45:00* Test Item Value Reference Range Interpretation Comme nts POCT GLU (test code = 5055102397) 239 mg/dL 70-110 H Lab Interpretation (test cod e = 46887-9) Abnormal [facility] GLUCOSE (AUTOMATED)2024-08-05 16:39:32* Test Item Value Reference Range Interpretation Comme nts POCT GLU (test code = 2143849410) 227 mg/dL 70-110 H Lab Interpretation (test cod e = 26207-3) Abnormal [facility] GLUCOSE (AUTOMATED)2024-08-05 16:39:32* Test Item Value Reference Range Interpretation Comme nts POCT GLU (test code = 3617408220) 227 mg/dL 70-110 H Lab Interpretation (test cod e = 80207-8) Abnormal [facility] GLUCOSE (AUTOMATED)2024-08-05 14:59:04* Test Item Value Reference Range Interpretation Comme nts POCT GLU (test code = 2582525247) 126 mg/dL 70-110 H Lab Interpretation (test cod e = 77342-6) [facility] 14:59:04* Test Item Value Reference Range Interpretation Comme nts POCT GLU (test code = 2209662331) 126 mg/dL 70-110 H Lab Interpretation (test cod e = 65957-9) [facility] 12:37:31* Test Item Value Reference Range Interpretation Comme nts POCT GLU (test code = 6115711884) 152 mg/dL 70-110 H Lab Interpretation (test cod e = 29541-6) Abnormal [facility] GLUCOSE (AUTOMATED)2024-08-05 12:37:31* Test Item Value Reference Range Interpretation Comme nts POCT GLU (test code = 0187242391) 152 mg/dL 70-110 H Lab Interpretation (test cod e = 13160-9) Abnormal [facility] GLUCOSE (AUTOMATED)2024-08-05 01:07:59* Test Item Value Reference Range Interpretation Comme nts POCT GLU (test code = 7717000539) 151 mg/dL 70-110 H Lab Interpretation (test cod e = 01852-2) Abnormal [facility] GLUCOSE (AUTOMATED)2024-08-05 01:07:59* Test Item Value Reference Range Interpretation Comme nts POCT GLU (test code = 4682034087) 151 mg/dL 70-110 H Lab Interpretation (test cod e = 41112-6) Abnormal [facility] GLUCOSE (AUTOMATED)2024-08-04 21:34:01* Test Item Value Reference Range Interpretation Comme nts POCT GLU (test code = 9490351873) 205 mg/dL 70-110 H Lab Interpretation (test cod e = 24423-6) Abnormal [facility] GLUCOSE (AUTOMATED)2024-08-04 21:34:01* Test Item Value Reference Range Interpretation Comme nts POCT GLU (test code = 4544361524) 205 mg/dL 70-110 H Lab Interpretation (test cod e = 41298-4) [facility] [id number] 17:22:33 EXAM: MRI LEFT HAND COMPARISON: Left hand radiographs 08/03/2024 HISTORY: Evaluate for left 3rd finger osteomyelitis TECHNIQUE AND FINDINGS: 3T OR 1.5T multiplanar multiweighted MR imaging of the lefthand wasperformed with and without IV contrast. 14 mL MultiHance contrastadministered IV. A soft tissue defect is suspected in the distal long finger. There isassociated skin thickening and diffuse soft tissue swelling about the longfinger. A 1.8 cm lobulated mass or fluid collection is present in the volaraspect of the long finger at the level of the distal phalanx. Themass/collection results in scalloping of the long finger distal phalanxcortex. Hyperintense STIR/hypointense T1 signal and enhancement are presentin the long finger distal phalanx.[facility] w wo [id number] 17:22:33EXAM: MRI LEFT HAND COMPARISON: Left hand radiographs 08/03/2024 HISTORY: Evaluate for left 3rd finger osteomyelitis TECHNIQUE AND FINDINGS: 3T OR 1.5T multiplanar multiweighted MR imaging of the lefthand wasperformed with and without IV contrast. 14 mL MultiHance contrastadministered IV. A soft tissue defect is suspected in the distal long finger. There isassociated skin thickening and diffuse soft tissue swelling about the longfinger. A 1.8 cm lobulated mass or fluid collection is present in the volaraspect of the long finger at the level of the distal phalanx. Themass/collection results in scalloping of the long finger distal phalanxcortex. Hyperintense STIR/hypointense T1 signal and enhancement are presentin the long finger distal phalanx.[facility] GLUCOSE (AUTOMATED)2024-08-04 17:15:32* Test Item Value Reference Range Interpretation Comme nts POCT GLU (test code = 7029564075) 245 mg/dL 70-110 H Lab Interpretation (test cod e = 96738-7) Abnormal [facility] GLUCOSE (AUTOMATED)2024-08-04 17:15:32* Test Item Value Reference Range Interpretation Comme nts POCT GLU (test code = 0725927690) 245 mg/dL 70-110 H Lab Interpretation (test cod e = 27142-1) Abnormal [facility] GLUCOSE (AUTOMATED)2024-08-04 12:20:34* Test Item Value Reference Range Interpretation Comme nts POCT GLU (test code = 6367366561) 187 mg/dL 70-110 H Lab Interpretation (test cod e = 55085-8) Abnormal [facility] GLUCOSE (AUTOMATED)2024-08-04 12:20:34* Test Item Value Reference Range Interpretation Comme nts POCT GLU (test code = 1351544650) 187 mg/dL 70-110 H Lab Interpretation (test cod e = 06071-6) Abnormal [facility] GLUCOSE (AUTOMATED)2024-08-04 01:09:58* Test Item Value Reference Range Interpretation Comme nts POCT GLU (test code = 7648304438) 162 mg/dL 70-110 H Lab Interpretation (test cod e = 44016-4) Abnormal [facility] GLUCOSE (AUTOMATED)2024-08-04 01:09:58* Test Item Value Reference Range Interpretation Comme nts POCT GLU (test code = 0317821686) 162 mg/dL 70-110 H Lab Interpretation (test cod e = 35698-1) Abnormal [facility] GLUCOSE (AUTOMATED)2024-08-03 21:36:00* Test Item Value Reference Range Interpretation Comme nts POCT GLU (test code = 8123146297) 283 mg/dL 70-110 H Lab Interpretation (test cod e = 33296-9) Abnormal [facility] GLUCOSE (AUTOMATED)2024-08-03 21:36:00* Test Item Value Reference Range Interpretation Comme nts POCT GLU (test code = 5094371921) 283 mg/dL 70-110 H Lab Interpretation (test cod e = 72210-0) [facility]normal [facility]1C[facility]2024-08-03 19:07:00* Test Item Value Reference Range Interpretation Comme nts HGB A1C (test code = 4548-4) 11 % 4.0-5.7 H ALLIE (test code = ALLIE) Reference RangesNormal: <5.7%Prediabetes: 5.7 - 6.4%Diabetes: > 6.5% Lab Interpretation (test code = 23318-7) [facility]normal [facility]2024-08-03 19:07:00* Test Item Value Reference Range Interpretation Comme nts HGB A1C (test code = 4548-4) 11 % 4.0-5.7 H ALLIE (test code = ALLIE) Reference RangesNormal: <5.7%Prediabetes: 5.7 - 6.4%Diabetes: > 6.5% Lab Interpretation (test code = 85737-1) [facility]normal [facility] 3+ vw [id number] 18:00:11EXAM: XR HAND 3+ VW LEFT HISTORY: 39 years old Male with middle finger pain and swelling COMPARISON: None. FINDINGS: Radiographs of the left hand demonstrate questionable cortical erosion ofthe radial aspect of the distal third diaphysis of the proximal phalanx. Noacute fractures or dislocations. Joint spaces are preserved. Alignment iswithin normal limits. Mild soft tissue swelling about the middle finger isseen.[facility]+ vw left 2024-08-03 18:00:11EXAM: XR HAND 3+ VW LEFT HISTORY: 39 years old Male with middle finger pain and swelling COMPARISON: None. FINDINGS: Radiographs of the left hand demonstrate questionable cortical erosion ofthe radial aspect of the distal third diaphysis of the proximal phalanx. Noacute fractures or dislocations. Joint spaces are preserved. Alignment iswithin normal limits. Mild soft tissue swelling about the middle finger isseen.[facility] METABOLIC PANEL ([id number])2024-08-03 17:44:58* Test Item Value Reference Range Interpretation Comme nts NA (test code = 4187522478) 135 mmol/L 135-145 K (test code = 7057526686) 3.9 mmol/L 3.5-5.0 CL (test code = 1851283556) 100 mmol/L 98-108 CO2 TOTAL (test code = 2288415562) 28 mmol/L 23-31 AGAP (test code = 6191656641) 7 2-16 BUN (test code = 9225947645) 11 mg/dL 7-23 GLUCOSE (test code = 4131145607) 263 mg/dL 70-110 H CREATININE (test code = 2160-0) 0.74 mg/dL 0.60-1.25 TOTAL BILI (test code = 5120748112) 0.8 mg/dL 0.1-1.1 CALCIUM (test code = 2438200553) 8.7 mg/dL 8.6-10.6 T PROTEIN (test code = 7609155364) 7.6 g/dL 6.3-8.2 ALBUMIN (test code = 7083839785) 4.2 g/dL 3.5-5.0 ALK PHOS (test code = 7868071925) 95 U/L 34-122 ALTv (test code = 1742-6) 12 U/L 5-50 AST(SGOT) (test code = 1868116208) 14 U/L 13-40 eGFR (test code = 23588-9) 118.2 mL/min/1.73m2 CKD-EPI eGFR (2020). Assuming creatinine has been stable day-to-day for at least three months, the eGFR indicates Category G1 (>= 90 mL/min/1.73 m2) Lab Interpretation (test code = 16353-1) Abnormal [facility]. METABOLIC PANEL (98516)2024-08-03 17:44:58* Test Item Value Reference Range Interpretation Comme nts NA (test code = 7589097737) 135 mmol/L 135-145 K (test code = 8213477215) 3.9 mmol/L 3.5-5.0 CL (test code = 2021276726) 100 mmol/L 98-108 CO2 TOTAL (test code = 9805434514) 28 mmol/L 23-31 AGAP (test code = 2757085381) 7 2-16 BUN (test code = 2672805160) 11 mg/dL 7-23 GLUCOSE (test code = 8513167507) 263 mg/dL 70-110 H CREATININE (test code = 2160-0) 0.74 mg/dL 0.60-1.25 TOTAL BILI (test code = 1322332273) 0.8 mg/dL 0.1-1.1 CALCIUM (test code = 9431602037) 8.7 mg/dL 8.6-10.6 T PROTEIN (test code = 6940248878) 7.6 g/dL 6.3-8.2 ALBUMIN (test code = 8417444867) 4.2 g/dL 3.5-5.0 ALK PHOS (test code = 3596707738) 95 U/L 34-122 ALTv (test code = 1742-6) 12 U/L 5-50 AST(SGOT) (test code = 6973758980) 14 U/L 13-40 eGFR (test code = 32575-6) 118.2 mL/min/1.73m2 CKD-EPI eGFR (2020). Assuming creatinine has been stable day-to-day for at least three months, the eGFR indicates Category G1 (>= 90 mL/min/1.73 m2) Lab Interpretation (test code = 54041-2) Abnormal [facility] WITH [id number] 17:33:40* Test Item Value Reference Range Interpretation Comme nts WBC (test code = 6690-2) 7.6 4.20-10.70 RBC (test code = 789-8) 5.22 4.26-5.52 HGB (test code = 718-7) 16.3 g/dL 12.2-16.4 HCT (test code = 4544-3) 45.5 % 38.4-49.3 MCV (test code = 787-2) 87.2 fL 81.7-95.6 MCH (test code = 785-6) 31.2 pg 26.1-32.7 MCHC (test code = 786-4) 35.8 g/dL 31.2-35.0 H RDW-SD (test code = 34612-7) 37.2 fL 38.5-51.6 L RDW-CV (test code = 788-0) 11.6 % 12.1-15.4 L PLT (test code = 777-3) 249 150-328 MPV (test code = 61702-7) 10.2 fL 9.8-13.0 NRBC/100 WBC (test code = 3579259190) 0 0.0-10.0 NRBC x10^3 (test code = 6786269571) See_Comment [Automated [employer] ge] The system which generated this result transmitted reference range: 10*3/?L. The reference range was not used to interpret this result as normal/abnormal. GRAN MAT (NEUT) % (test code = 770-8) 60.7 % IMM GRAN % (test code = 9030150143) 0.3 % LYMPH % (test code = 736-9) 25.3 % MONO % (test code = 5905-5) 10.4 % EOS % (test code = 713-8) 2.4 % BASO % (test code = 706-2) 0.9 % GRAN MAT x10^3(ANC) (test code = 9002335729) 4.62 10*3/uL 1.99-6.95 IMM GRAN x10^3 (test code = 1845503151) 0.00-0.06 LYMPH x10^3 (test code = 731-0) 1.92 10*3/uL 1.09-3.23 MONO x10^3 (test code = 742-7) 0.79 10*3/uL 0.36-1.02 EOS x10^3 (test code = 711-2) 0.18 10*3/uL 0.06-0.53 BASO x10^3 (test code = 704-7) 0.07 10*3/uL 0.01-0.09 Lab Interpretation (test code = 83614-7) Abnormal [facility] WITH [id number] 17:33:40* Test Item Value Reference Range Interpretation Comme nts WBC (test code = 6690-2) 7.6 4.20-10.70 RBC (test code = 789-8) 5.22 4.26-5.52 HGB (test code = 718-7) 16.3 g/dL 12.2-16.4 HCT (test code = 4544-3) 45.5 % 38.4-49.3 MCV (test code = 787-2) 87.2 fL 81.7-95.6 MCH (test code = 785-6) 31.2 pg 26.1-32.7 MCHC (test code = 786-4) 35.8 g/dL 31.2-35.0 H RDW-SD (test code = 43115-9) 37.2 fL 38.5-51.6 L RDW-CV (test code = 788-0) 11.6 % 12.1-15.4 L PLT (test code = 777-3) 249 150-328 MPV (test code = 29837-1) 10.2 fL 9.8-13.0 NRBC/100 WBC (test code = 5248405436) 0 0.0-10.0 NRBC x10^3 (test code = 4756275196) See_Comment [Automated messa ge] The system which generated this result transmitted reference range: 10*3/?L. The reference range was not used to interpret this result as normal/abnormal. GRAN MAT (NEUT) % (test code = 770-8) 60.7 % IMM GRAN % (test code = 6559738761) 0.3 % LYMPH % (test code = 736-9) 25.3 % MONO % (test code = 5905-5) 10.4 % EOS % (test code = 713-8) 2.4 % BASO % (test code = 706-2) 0.9 % GRAN MAT x10^3(ANC) (test code = 7193435679) 4.62 10*3/uL 1.99-6.95 IMM GRAN x10^3 (test code = 0995017609) 0.00-0.06 LYMPH x10^3 (test code = 731-0) 1.92 10*3/uL 1.09-3.23 MONO x10^3 (test code = 742-7) 0.79 10*3/uL 0.36-1.02 EOS x10^3 (test code = 711-2) 0.18 10*3/uL 0.06-0.53 BASO x10^3 (test code = 704-7) 0.07 10*3/uL 0.01-0.09 Lab Interpretation (test code = 41993-9) Abnormal [facility] Consult Notes Date/Time Note Provider Source 2024-08-04 14:01:57 Associated Order(s): CONSULT INFECTIOUS DISEASE Seen for cellulitis of the hand with possible abscess formation in the middle finger of left hand, 39 year old male patient with a PMH as listed below, who presents to the ED with complaints of pain and swelling to his left middle finger. He reports symptom onset was 5-6 days ago. Patient reports he sought treatment in the ED in [place]. He reports drainage of the finger was attempted and small amount of purulent drainage came out. He was started on Keflex and sent home. He reported the swelling and pain did not improve. He then returned to the ED again and they attempted again drainage on the pad of the finger and he reported again they got out some purulent drainage. He states he was placed on clindamycin at that time and sent home. He reported to our ED with complaints of worsening finger pain and swelling. He describes the pain as throbbing and tightness. Reports he has had some fever and chills with this illness. Workup in the ED was concerning for possible osteomyelitis of the third proximal phalanx. He was also found to have elevated blood glucose levels and A1c was done and was noted to be 11. Orthopedic surgery was consulted from the ED by the ED provider and Dr. Durham recommended admission for IV antibiotics. Patient being noncompliant to his sugar control Past medical history: Diabetes mellitus Past Surgical History: Procedure Laterality Date HERNIA REPAIR Right 20 years ago Current Facility-Administered Medications: ALPRAZolam (XANAX) tablet 0.5 mg, 0.5 mg, Oral, TIDPRN, Emma Noble MD, 0.5 mg at 08/04/24 0108 acetaminophen (TYLENOL) tablet 650 mg, 650 mg, Oral, Q6HPRN, Lasha Hills MD atorvastatin (LIPITOR) tablet 40 mg, 40 mg, Oral, QHS, Lasha Hills MD, 40 mg at 08/03/242055 ceFEPIme (MAXIPIME) 1,000 mg in NaCl 0.9% (NS) 100 mL MINI-BAG, 1,000 mg, IV Piggyback, Q8H ABX, Lasha Hills MD, Last Rate: 25 mL/hr at 08/04/24 1242, 1,000 mg at 08/04/24 1242 dextrose 50 % in water (D50W) injection 25 mL, 25 mL, Slow IV Push, PRN, Lasha Hills MD enoxaparin (LOVENOX) injection 40 mg, 40 mg, Subcutaneous, DAILY, Lasha Hills MD, 40 mg at 08/04/24 0754 glucagon HCL injection 1 mg, 1 mg, Intramuscular, PRN, Lasha Hills MD HYDROcodone-acetaminophen (NORCO 5) tablet 1 tablet, 1 tablet, Oral, Q6HPRN, Lasha Hills MD, 1 tablet at 08/04/24 1237 insulin glargine (LANTUS U-100) injection 15 Units, 15 Units, Subcutaneous, DAILY, Lasha Hills MD, 15 Units at 08/04/24 0752 insulin lispro (human) (HumaLOG U-100) injection 2 Units, 2 Units, Subcutaneous, TID MEALS, Lasha Hills MD, 2 Units at 08/04/24 1233 lisinopriL (PRINIVIL,ZESTRIL) tablet 5 mg, 5 mg, Oral, DAILY, Lasha Hills MD, 5 mg at 08/04/24 0753 NaCl 0.9% (NS) IV infusion 1,000 mL, 1,000 mL, IV Infusion, CONTINUOUS, Lasha Hills MD, Last Rate: 125 mL/hr at 08/04/24 1240, 1,000 mL at 08/04/24 1240 ondansetron (ZOFRAN (PF)) injection 4 mg, 4 mg, Slow IV Push, Q6HPRN, Lasha Hills MD, 4 mg at 08/03/24 1336 Sliding Scale Insulin - Lispro (HumaLOG), , Subcutaneous, TID MEALS+HS, Lasha Hills MD, 3 Units at 08/04/24 1235 vancomycin (VANCOCIN) 1,500 mg in NaCl 0.9% (NS) 500 mL V2B IV Piggyback, 1,500 mg, IV Piggyback, Q8H ABX, María Moctezuma, [facility], Stopped at 08/04/24 0731 vancomycin placeholder: dosing by pharmacy, , Intravenous, RX Placeholder, Lasha Hills MD No Known Allergies Family History Problem Relation Age of Onset Diabetes Mother Diabetes Father Heart Father No Significant Medical Problems Sister No Significant Medical Problems Brother Social History Socioeconomic History Marital status: Spouse name: Not on file Number of children: 3 Years of education: Not on file Highest education level: Some college, no degree Occupational History Not on file Tobacco Use Smoking status: Never Smokeless tobacco: Never Tobacco comments: Vapes Vaping Use Vaping status: Every Day Substances: Nicotine Substance and Sexual Activity Alcohol use: Not Currently Drug use: Not on file Sexual activity: Yes Partners: Female Other Topics Concern Not on file Social History Narrative , 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 Drivers of Health Financial Resource Strain: Not on file Food Insecurity: Not on file Transportation Needs: Not on file Physical Activity: Not on file Stress: Not on file Social Connections: Not on file Housing Stability: Not on file Review of systems: 10 point review was performed Physical exam: Patient laying in bed not in any acute cardiopulmonary distress Vitals: 08/03/24 2330 08/04/24 0353 08/04/24 0701 08/04/24 1214 BP: 138/88 130/85 117/78 133/87 Pulse: 89 73 74 85 Resp: 24 16 18 18 Temp: 36.2 ?C (97.2 ?F) 35.8 ?C (96.5 ?F) 36.6 ?C (97.9 ?F) 36.6 ?C (97.8 ?F) TempSrc: SpO2: 100% 100% 100% 100% Weight: 155 lb 6.4 oz (70.5 kg) Height: HEENT: Atraumatic, normocephalic, mucous membranes moist, normal dentition, PERRL Neck: supple, trachea midline, no JVD, no carotid bruits, no thyromegaly, no lymphadenopathy Lungs: Symmetric chest expansion, breath sounds clear to auscultation bilaterally, no rhonchi, crackles or wheezes, stable on room air Cardio: S1, S2, regular rhythm, no JVD, no murmurs, no edema Abdomen: soft, non distended, non tender, positive bowel sounds Extremities: Active ROM X4, No calf tenderness, left middle finger with swelling, pain, edema Skin: Warm/dry, left middle finger swelling and tenderness at the distal end CBC WBC (10*3/?L) Date Value 08/04/2024 7.35 RBC (10*6/?L) Date Value 08/04/2024 4.70 PLT (10*3/?L) Date Value 08/04/2024 231 HGB (g/dL) Date Value 08/04/2024 14.7 HCT (%) Date Value 08/04/2024 41.3 CMP NA (mmol/L) Date Value 08/04/2024 133 (L) K (mmol/L) Date Value 08/04/2024 4.0 CALCIUM (mg/dL) Date Value 08/04/2024 8.4 (L) CL (mmol/L) Date Value 08/04/2024 103 BUN (mg/dL) Date Value 08/04/2024 11 CREATININE (mg/dL) Date Value 08/04/2024 0.59 (L) GLUCOSE (mg/dL) Date Value 08/04/2024 198 (H) CO2 TOTAL (mmol/L) Date Value 08/04/2024 25 ALBUMIN (g/dL) Date Value 08/03/2024 4.2 T PROTEIN (g/dL) Date Value 08/03/2024 7.6 TOTAL BILI (mg/dL) Date Value 08/03/2024 0.8 ALTv (U/L) Date Value 08/03/2024 12 AST(SGOT) (U/L) Date Value 08/03/2024 14 ALK PHOS (U/L) Date Value 08/03/2024 95 Left hand radiographs 08/03/2024 HISTORY: Evaluate for left 3rd finger osteomyelitis TECHNIQUE AND FINDINGS: 3T OR 1.5T multiplanar multiweighted MR imaging of the left hand was performed with and without IV contrast. 14 mL MultiHance contrast administered IV. A soft tissue defect is suspected in the distal long finger. There is associated skin thickening and diffuse soft tissue swelling about the long finger. A 1.8 cm lobulated mass or fluid collection is present in the volar aspect of the long finger at the level of the distal phalanx. The mass/collection results in scalloping of the long finger distal phalanx cortex. Hyperintense STIR/hypointense T1 signal and enhancement are present in the long finger distal phalanx. IMPRESSION Osteomyelitis of the long finger distal phalanx with overlying soft tissue defect and cellulitis. Assessment and plan: This is a 39-year-old male with left middle finger distal phalanx osteomyelitis and cellulitis of hand and failed treatment as outpatient oral antibiotic currently being treated with vancomycin and cefepime Plan is for surgical debridement Continue antibiotic for 6 weeks if treatment of osteomyelitis needed Consider applying Betadine to the finger and covering with Kerlix Patient was educated regarding diabetes and control of his sugar which might deepika his healing of infection and wound Consider nutritional support and sugar control to keep blood sugar fasting 150 or less Monitor signs of infection with WBC and fever trends Thank you for consult T [facility] - Health History and Physical Notes Date/Time Note Provider Source 2024-08-03 18:01:04 [facility]-H&P Date of Service: 08/03/2024 Time Of Service: 6:01 PM PCP: Sia Monae Chief complaint: Wound (Left middle finger ) History of present illness Elliott Vila 39 year old male patient with a PMH as listed below, who presents to the ED with complaints of pain and swelling to his left middle finger. He reports symptom onset was 5-6 days ago. Patient reports he sought treatment in the ED in [place]. He reports drainage of the finger was attempted and small amount of purulent drainage came out. He was started on Keflex and sent home. He reported the swelling and pain did not improve. He then returned to the ED again and they attempted again drainage on the pad of the finger and he reported again they got out some purulent drainage. He states he was placed on clindamycin at that time and sent home. He reported to our ED with complaints of worsening finger pain and swelling. He describes the pain as throbbing and tightness. Reports he has had some fever and chills with this illness. Workup in the ED was concerning for possible osteomyelitis of the third proximal phalanx. He was also found to have elevated blood glucose levels and A1c was done and was noted to be 11. Orthopedic surgery was consulted from the ED by the ED provider and Dr. Durham recommended admission for IV antibiotics and that he would see the patient in the a.m. He was referred to the hospitalist service for admission. REVIEW OF SYSTEMS Review of Systems Constitutional: Positive for chills, fever and malaise/fatigue. HENT: Negative. Eyes: Negative. Respiratory: Negative. Cardiovascular: Negative. Gastrointestinal: Negative. Genitourinary: Negative. Musculoskeletal: Left middle finger pain Skin: Left middle finger with swelling, edema, bruising to pad of finger, dried blood around nailbed. Neurological: Negative. Endo/Heme/Allergies: Negative. Psychiatric/Behavioral: Negative. PAST MEDICAL HISTORY: PT has no past medical history on file. PAST SURGICAL HISTORY: PT has a past surgical history that includes hernia repair (Right). 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 No current outpatient medications on file prior to encounter. ALLERGIES: Patient has no known allergies. PHYSICAL EXAMINATION: Vitals: 08/03/24 1400 08/03/24 1420 08/03/24 1432 08/03/24 1634 BP: 131/90 (!) 133/91 (!) 147/88 Pulse: 87 86 84 Resp: 16 18 18 Temp: 37.1 ?C (98.8 ?F) 36.3 ?C (97.4 ?F) 36.3 ?C (97.4 ?F) TempSrc: Oral SpO2: 100% 99% 100% Weight: 68.5 kg (151 lb) Height: 1.829 m (6') General: Awake, Alert and oriented x 3 HEENT: Atraumatic, normocephalic, mucous membranes moist, normal dentition, PERRL Neck: supple, trachea midline, no JVD, no carotid bruits, no thyromegaly, no lymphadenopathy Lungs: Symmetric chest expansion, breath sounds clear to auscultation bilaterally, no rhonchi, crackles or wheezes, stable on room air Cardio: S1, S2, regular rhythm, no JVD, no murmurs, no edema Abdomen: soft, non distended, non tender, positive bowel sounds Extremities: Active ROM X4, No calf tenderness, left middle finger with swelling, pain, edema Skin: Warm/dry, left middle finger as noted above Neuro: Cranial nerves II through XII intact; no focal deficits. Motion & Sensation intact. Psych: Normal Mood & Affect. LABS - Reviewed IMAGING - Hospital Encounter on 08/03/24 XR Hand 3+ vw left Narrative EXAM: XR HAND 3+ VW LEFT HISTORY: 39 years old Male with middle finger pain and swelling COMPARISON: None. FINDINGS: Radiographs of the left hand demonstrate questionable cortical erosion of the radial aspect of the distal third diaphysis of the proximal phalanx. No acute fractures or dislocations. Joint spaces are preserved. Alignment is within normal limits. Mild soft tissue swelling about the middle finger is seen. Impression Questionable cortical erosion of the radial aspect of the distal diaphysis of the third proximal phalanx with overlying soft tissue swelling may represent osteomyelitis. Further evaluation with MRI could be performed. Preliminary Report Dictated by Resident: Jai Bender I, Edna Underwood MD., have reviewed this study and agree with the above report. Assessment and Plan Left middle finger Cellulitis, concerns for osteomyelitis- patient admitted for management of left middle finger cellulitis. Finger with edema, warmth, pain, and erythema. Failed outpatient treatment with cephalexin and clindamycin prescribed by [place] ED provider. Drainage of left fingertip done at outside ED, patient reported there was some purulent drainage noted by the ED provider at that time. X-ray done here showed "questionable cortical erosion of the radial aspect of the distal diaphysis of the third proximal phalanx with overlying soft tissue swelling" concerning for osteomyelitis. -Admit to MedSurg -IV vancomycin and cefepime, pharmacy on consult to dose vancomycin -ID consult -General Surgery consult -Obtain MRI -Vital signs per unit routine -I&O q shift -Tylenol Q 4 hours PRN temp -Zofran 4mg IV Q 6 hours PRN nausea -Keep left hand elevated -Analgesics as needed for pain Newly diagnosed diabetes mellitus-patient reports he has never known he had a history of diabetes. Reports that his mother and father both have diabetes and that his mother has lost her leg from this. He does not currently have a primary care provider. Discussed with patient A1c results and initiation of diabetes treatment to promote glucose control and treatment of his infection. -FSBS ACHS -Start Lantus and SSI for coverage -ADA diet -Will need outpatient endocrine referral -Nutrition consult -Will need diabetes education Possible hypertension-blood pressure 130s to 140s here, possibly due to pain, however, due to lack of primary care, may be newly diagnosed hypertension. -Control pain -Monitor blood pressure -Low-dose JIGAR inhibitor started -Will need to establish outpatient primary care postdischarge Nicotine dependence-patient reports he vapes daily -Counseled on benefits of cessation DVT prophylaxis:- Lovenox Advanced Care Planning (Z71.89) Above assessment and plan discussed at length with patient, patient expressed full understanding. Questions and concerned addressed. Surrogate decision maker: MotherMerry Level of comfort: Home Full code Time spent: 7 minutes discussing the advanced care plan Smoking Cessation: (Z71.6) Tobacco user: yes, every day vape user if yes: Risk discussed: Yes Patient understand and agrees to the patch Time spent: 4 minutes discussing smoking cessation Voice recognition software, Zuvvu, has been used to create portions of this document and is subject to voice recognition errors. An attempt to proofread has been made to minimize errors. Please excuse any unusual inaccuracies, however, do not hesitate to call with any questions. Tx SUPERINTENDENT reviewed Duyen Mireles, DNP, RADIOLOGY RECEPTIONIST, ACNPC 08/03/2024 6:01 PM Cosigned by Lasha Hills MD at 08/03/2024 6:47 PM CDT Associated attestation - Lasha Hills MD - 08/03/2024 6:47 PM CDT I performed a substantial part of the MDM during this patient's hospital visit. I personally made or approved the documented management plan and acknowledge its risk of complications. I agree with the findings and documentation provided in the JOSE's notes. Patient is a 39 y/o M with no PMH who presented with a left 3rd finger wound with cellulitis and possible acute osteomyelitis of the left 3rd proximal phalanx (seen on x-ray). He was also diagnosed with DM II with hyperglycemia. I agree with IV cefepime, IV vancomycin, SC Lantus, SC mealtime Lispro, SSI, analgesics, orthopedic surgery and ID consults. Plan for MRI of the left hand for further evaluation of possible osteomyelitis. Medicine team will continue to provide daily care. Lasha Hills MD 08/03/2024 6:42 PM [facility] Health Procedure Notes Date/Time Note Provider Source 2024-08-07 11:19:18 Vascular Access Services Date of Service: 08/07/24 Patient location: [place] [address] Placed by: Zachariah Cantu RN 39 year old male. Indication/Diagnosis: detention antibiotics Consent: indications/complications discussed; verbal consent obtained from sibling and indications/complications discussed; written consent obtained from patient Education provided to patient, including pros and cons of PICC insertion. Questions encouraged and answered accordingly. According to [facility] Operating Procedures Policy, a Time Out was performed to include procedure performed, identity of proceduralist, and identity of procedure recipient by two identifiers. Co-signed/witnessed by Chantell Chung rN. Sterile technique was used : A cap and mask were donned, hand hygiene was performed and sterile gown and gloves were donned. The skin was prepped with 2% chlorhexidine and the solution was allowed to dry. A full body fenestrated drape was placed over the patient without contaminating the drape during placement. Anesthesia: Lidocaine HCL 1% infiltration to insertion site Ultrasound utilized: yes [place] Location used: yes 3CG Tip Location System used: yes Sterile dressing: yes Narrative: Patient was prepped using chlorhexidine and draped utilizing max-barrier precautions. A 4fr single-lumen Bard PICC line was introduced with the Seldinger technique into the right brachial vein in one attempt(s). Guide wire was threaded without difficulty. The micro-introducer was then placed over the guide wire, the guide wire was removed, and then the catheter was inserted through the micro-introducer. The micro-introducer was then peeled away and the PICC was secured using silk 2-0 sutures and transparent dressing. Good flow was noted from the port(s) and the catheter flushed easily. Blood loss was minimal. Trimmed length: 41 cm. Baseline Arm Circumference: 30 cm. Catheter exposed: 0 cm. Complications: none Chest x-ray: ordered and pending REF#: [id number] Lot #: [id number] Exp Date: 11/06/24 Zachariah Cantu RN [facility] Notes Date/Time Note Provider Source 2024-09-07 23:54:49 Per ERP patient called from lobby. No answer. HIAS Haji RN [facility] 2024-09-07 22:39:27 Pt ambulatory to triage for CC of wanting his PICC line out. Pt states his job wont let him have it in at his job so he would like it removed. PICC is in RUE Brent Franco RN [facility] 2024-08-30 15:37:31 Patient given discharge instructions on occluded PICC line. No prescriptions given. Pt left ER ambulatory, no distress. Pippa Crouch RN [facility] 2024-08-30 15:25:26 Picc line power flushed with 4 NS flushes. [facility] 2024-08-30 14:53:05 Pt arrived ambulatory without assist. Pt c/o unable to flush PICC line in right arm. Lucy Lopez RN [facility] 2024-08-30 14:36:00 [facility] Emergency Department Note Patient Name: Elliott Vila Date of : 1985 39 year old male Treatment Room: [facility] FT02/[id number] Primary Care Physician: Sia Monae Patient Escorted by: Self [9] Mode of Arrival: Personal means [1] EMS Treatment Prior to ED Arrival: Travel and Exposure Screening: Symptoms Does patient have any of these symptoms?: (not recorded) Exposure Screening Has patient had contact with someone with a communicable disease in the last month?: (not recorded) Diseases exposed to:: (not recorded) Is Patient ?: (not recorded) Exposure Date: (not recorded) Chief Complaint: Chief Complaint Patient presents with hplc chemist problem PICC History of Present Illness: History of Present Illness The patient presents from home for eval for a problem with his right arm PICC line. He has the line in place for IV antibiotics for osteomyelitis. He has about 3 weeks left of therapy. Today he went to try to flush the PICC line to start his antibiotics and reports he heard a crack and has not been able to flush the line ever since. He then chose to come to the ER for evaluation. No other complaints. Here for evaluation. Past Medical History/Immunizations: History reviewed. No pertinent past medical history. Allergies: No Known Allergies Past Social History: Tobacco Use Never smoked or used smokeless tobacco. Comments: Vapes Vaping Use Every day; Substances: Nicotine, Flavoring; Devices: Disposable Alcohol Use Not Currently. Drug Use Not Currently. Sexual Activity Sexually active; Partners: Female. Past Surgical History: Past Surgical History: Procedure Laterality Date HERNIA REPAIR Right 20 years ago INCISION AND DRAINAGE DIGIT HAND (SHX) Left 08/05/2024 Surgeon: Ghassan Durham MD; Location: [facility] Review of Systems: Review of Systems Constitutional: Negative for chills and fever. Respiratory: Negative for cough and shortness of breath. Cardiovascular: Negative for chest pain. Gastrointestinal: Negative for abdominal pain and vomiting. Genitourinary: Negative for dysuria. Musculoskeletal: Negative for arthralgias, neck pain and neck stiffness. Skin: Negative for wound. Neurological: Negative for dizziness. Psychiatric/Behavioral: Negative for agitation. Endocrine: Negative for goiter. Physical Exam: Physical Exam ED Triage Vitals [08/30/24 1453] Weight 71.7 kg (158 lb) Actual or estimated Height 1.829 m (6') BP 137/83 Pulse 77 Resp 16 Temp 36.9 ?C (98.4 ?F) Temp source Oral SpO2 100 % Measured on Room air Physical Exam Vitals and nursing note reviewed. Constitutional: Appearance: Normal appearance. HENT: Head: Normocephalic and atraumatic. Cardiovascular: Rate and Rhythm: Normal rate and regular rhythm. Pulmonary: Effort: Pulmonary effort is normal. No respiratory distress. Breath sounds: No stridor. Abdominal: General: There is no distension. Palpations: Abdomen is soft. Musculoskeletal: General: Normal range of motion. Cervical back: Normal range of motion and neck supple. Comments: Right upper arm PICC line site is c/d/i Skin: General: Skin is warm and dry. Neurological: General: No focal deficit present. Mental Status: He is alert and oriented to person, place, and time. Radiology: No orders to display Lab Results: Lab Results - No data to display EKG: If EKG completed, see Procedure Note. Orders and Treatments: No orders of the defined types were placed in this encounter. Orders Placed This Encounter Medications alteplase (CATHFLO ACTIVASE) injection 2 mg First Provider Eval: ED Events Date/Time Event User Comments 08/30/24 1448 Medical Screening Begins GRACIELA LOPEZ DO -- 08/30/24 1448 First Provider Evaluation GRACIELA LOPEZ DO -- ED COURSE Diagnosis/Impression as of 08/30/24 1522 Occlusion of peripherally inserted central catheter (PICC) line, initial encounter Results Procedures: Procedures MDM: Assessment & Plan Medical Decision Making The patient presents from home for eval for a problem with his right arm PICC line. He has the line in place for IV antibiotics for osteomyelitis. He has about 3 weeks left of therapy. Today he went to try to flush the PICC line to start his antibiotics and reports he heard a crack and has not been able to flush the line ever since. He then chose to come to the ER for evaluation. No other complaints. Vital signs are stable in the ER. His right upper arm PICC line is clean, dry and intact. Will have nursing tried to troubleshoot the PICC line by flushing and then use Cathflo if necessary. Anticipate discharge home later. 1522 -his PICC line did flush at bedside with saline and did not require the use of Cathflo. He remained stable here in the ER and is okay for discharge home with PCP follow-up in 1 week. Problems Addressed: Occlusion of peripherally inserted central catheter (PICC) line, initial encounter: acute illness or injury Risk OTC drugs. Prescription drug management. Flowsheet Documentation: Scoring Tools: No data recorded Disposition/Condition: ED Disposition ED Disposition Discharge Condition Stable Comment -- Discharge Medications: Patient's Medications START taking these medications No medications on file CONTINUE taking these medications which have NOT CHANGED ATORVASTATIN 40 MG TABLET Take 1 tablet by mouth at bedtime for 30 days. BLOOD-GLUCOSE METER (FREESTYLE FREEDOM) KIT Use as directed BLOOD-GLUCOSE SENSOR (FREESTYLE PETE 3 SENSOR) LISA Use as directed INSULIN GLARGINE 100 UNIT/ML INJECTION inject 18 Units under the skin in the morning for 30 days. LISINOPRIL 5 MG TABLET Take 1 tablet by mouth in the morning for 30 days. START taking Modified Medications as Prescribed No medications on file STOP taking these medications No medications on file Follow-up: Electronically signed by: Graciela Lopez DO 08/30/24 1522 T [facility] 2024-08-07 11:07:22 Images from the original note were not included. General Vancomycin Note [facility] Clinical Pharmacist Consult Consulting Service: Vancomycin (Pharmacy to Dose) Pharmacy Vancomycin Therapeutic Monitoring Note Patient Name DEVONTE Sex Unit Elliott Vila [id number] 1985 male TX2/TX2 Indication for vancomycin and goal Age Total Body Weight Osteomyelitis AUC/BRITNEY 400-600 mcg*hr/ mL 39 year old Wt Readings from Last 1 Encounters: 08/04/24 70.5 kg (155 lb 6.4 oz) 08/07/24 7165 (156 lb 1.2 oz) 08/06/24 71kg (156 lb 6.8 oz) Laboratory Data and Vancomycin Dosing CREATININE Date/Time Value Ref Range Status 08/04/2024 03:57 AM 0.59 (L) 0.60 - 1.25 mg/dL Final 08/03/2024 12:12 PM 0.74 0.60 - 1.25 mg/dL Final 08/06/2024 04:56 AM 0.54 (L) 0.60 - 1.25 mg/dL Final 08/07/2024 05:04 AM 0.57 (L) 0.60 - 1.25 mg/dL Date HD/CRRT? Dosing Regimen and frequency @ Times (mg) Vancomycin Level @ Time (mcg/mL) 08/03/24 No Vancomycin 1500 mg IV Q8H given @ 1339, 2103 - 08/04/24 No Vancomycin 1500 IV Q8H given @ 0601, 1701,2232 14.5 @ 0357 08/05/24 No Vancomycin 1500mg IV Q8H given @0632,1422, 2314 - 08/06/24 No Vancomycin 1500 mg IV Q8H given @ 0702 1417 2204 13.2 @ 0456 08/07/24 No Vancomycin 1500 mg IV Q8H given @ 0501 - - - Assessment & Plan Based on patient-specific levels and Bayesian monitoring, the current regimen is estimated to yield an AUC/BRITNEY of 454.7 mcg*hr/ml, which is therapeutic Plan is to: Continue vancomycin scheduled at a dose of: Vancomycin 1500 mg IV Q8H Predicted AUC = 454.7 mcg hr/mL Plan to draw next level on: _08/10/24 @ __0400 Thank you for allowing pharmacy to participate in the care of this patient. Please feel free to contact us with any questions or concerns. Kanu Marroquni RPH [facility] Department of Pharmacy [facility] Phone: ADC: [phone] Kanu Marroquin [facility] 2024-08-06 22:53:33 Problem: Falls, Risk of Goal: Absence of falls Outcome: Progressing as expected Problem: Skin integrity Impaired (Risk or Actual) Goal: Wound healing Outcome: Progressing as expected Goal: Prevention of new skin breakdown Outcome: Progressing as expected Problem: Discharge Planning Goal: Adequate for discharge Outcome: Progressing as expected Goal: Effective communication Outcome: Progressing as expected Problem: Infection Risk Goal: Absence of infection Outcome: Progressing as expected Cristina Vo RN [facility] 2024-08-06 16:06:52 Problem: Falls, Risk of Goal: Absence of falls Outcome: Progressing as expected Problem: Skin integrity Impaired (Risk or Actual) Goal: Wound healing Outcome: Progressing as expected Goal: Prevention of new skin breakdown Outcome: Progressing as expected Problem: Discharge Planning Goal: Adequate for discharge Outcome: Progressing as expected Goal: Effective communication Outcome: Progressing as expected Problem: Infection Risk Goal: Absence of infection Outcome: Progressing as expected Problem: Glucose control Goal: Glucose level within specified parameters Outcome: Progressing as expected Problem: Venous Thromboembolism, (actual or risk of) Goal: Absence of venous thromboembolism (Risk) Outcome: Progressing as expected Goal: Prevent further complications associated with VTE diagnosis (Actual) Outcome: Progressing as expected Sasha Hurst RN [facility] 2024-08-06 09:14:04 Images from the original note were not included. General Vancomycin Note [facility] Clinical Pharmacist Consult Consulting Service: Vancomycin (Pharmacy to Dose) Pharmacy Vancomycin Therapeutic Monitoring Note Patient Name MRN Sex Unit Elliott Vila [id number] 1985 male TX2/TX2 Indication for vancomycin and goal Age Total Body Weight Osteomyelitis AUC/BRITNEY 400-600 mcg*hr/ mL 39 year old Wt Readings from Last 1 Encounters: 08/04/24 70.5 kg (155 lb 6.4 oz) 08/06/24 71kg (156 lb 6.8 oz) Laboratory Data and Vancomycin Dosing CREATININE Date/Time Value Ref Range Status 08/04/2024 03:57 AM 0.59 (L) 0.60 - 1.25 mg/dL Final 08/03/2024 12:12 PM 0.74 0.60 - 1.25 mg/dL Final 08/06/2024 04:56 AM 0.54 (L) 0.60 - 1.25 mg/dL Final Date HD/CRRT? Dosing Regimen and frequency @ Times (mg) Vancomycin Level @ Time (mcg/mL) 08/03/24 No Vancomycin 1500 mg IV Q8H given @ 1339, 2103 - 08/04/24 No Vancomycin 1500 IV Q8H given @ 0601, 1701,2232 14.5 @ 0357 08/05/24 No Vancomycin 1500mg IV Q8H given @0632,1422, 2314 - 08/06/24 No Vancomycin 1500 mg IV Q8H given @ 0636 13.2 @ 0456 - - - Assessment & Plan Based on patient-specific levels and Bayesian monitoring, the current regimen is estimated to yield an AUC/BRITNEY of 454.3 mcg*hr/ml, which is therapeutic Plan is to: Continue vancomycin scheduled at a dose of: Vancomycin 1500 mg IV Q8H Predicted AUC = 454.3 mcg hr/mL Plan to draw next level on: _08/10/24 @ __0400 Thank you for allowing pharmacy to participate in the care of this patient. Please feel free to contact us with any questions or concerns. Kanu Marroquin PharmD [facility] Department of Pharmacy - [facility] Phone: ADC: [phone] [facility] 2024-08-06 02:31:49 Problem: Falls, Risk of Goal: Absence of falls Outcome: Progressing as expected Problem: Skin integrity Impaired (Risk or Actual) Goal: Wound healing Outcome: Progressing as expected Goal: Prevention of new skin breakdown Outcome: Progressing as expected Problem: Discharge Planning Goal: Adequate for discharge Outcome: Progressing as expected Goal: Effective communication Outcome: Progressing as expected Problem: Infection Risk Goal: Absence of infection Outcome: Progressing as expected Problem: Glucose control Goal: Glucose level within specified parameters Outcome: Progressing as expected Problem: Venous Thromboembolism, (actual or risk of) Goal: Absence of venous thromboembolism (Risk) Outcome: Progressing as expected Goal: Prevent further complications associated with VTE diagnosis (Actual) Outcome: Progressing as expected Problem: Discharge Planning Goal: Adequate for discharge Outcome: Progressing as expected Problem: Skin integrity Impaired (Risk or Actual) Goal: Wound healing Outcome: Progressing as expected Rissa Dueñas RN [facility] 2024-08-05 14:51:18 Problem: Falls, Risk of Goal: Absence of falls Outcome: Progressing as expected Problem: Skin integrity Impaired (Risk or Actual) Goal: Wound healing Outcome: Progressing as expected Goal: Prevention of new skin breakdown Outcome: Progressing as expected Problem: Discharge Planning Goal: Adequate for discharge Outcome: Progressing as expected Goal: Effective communication Outcome: Progressing as expected Problem: Infection Risk Goal: Absence of infection Outcome: Progressing as expected Problem: Glucose control Goal: Glucose level within specified parameters Outcome: Progressing as expected Problem: Venous Thromboembolism, (actual or risk of) Goal: Absence of venous thromboembolism (Risk) Outcome: Progressing as expected Goal: Prevent further complications associated with VTE diagnosis (Actual) Outcome: Progressing as expected Chantell Chung RN [facility] 2024-08-05 10:53:21 Images from the original note were not included. General Vancomycin Note [facility] Clinical Pharmacist Consult Consulting Service: Vancomycin (Pharmacy to Dose) Pharmacy Vancomycin Therapeutic Monitoring Note Patient Name DEVONTE Sex Unit Elliott Vila [id number] 1985 male TX2/TX2 Indication for vancomycin and goal Age Total Body Weight Osteomyelitis AUC/BRITNEY 400-600 mcg*hr/ mL 39 year old Wt Readings from Last 1 Encounters: 08/04/24 70.5 kg (155 lb 6.4 oz) Laboratory Data and Vancomycin Dosing CREATININE Date/Time Value Ref Range Status 08/04/2024 03:57 AM 0.59 (L) 0.60 - 1.25 mg/dL Final 08/03/2024 12:12 PM 0.74 0.60 - 1.25 mg/dL Final Date HD/CRRT? Dosing Regimen and frequency @ Times (mg) Vancomycin Level @ Time (mcg/mL) 08/03/24 No Vancomycin 1500 mg IV Q8H given @ 1339, 2103 - 08/04/24 No Vancomycin 1500 IV Q8H given @ 0601, 1701,2232 14.5 @ 0357 08/05/24 No Vancomycin 1500mg IV Q8H @0632 - - - - - Assessment & Plan Based on patient-specific levels and Bayesian monitoring, the current regimen is estimated to yield an AUC/BRITNEY of 518.03mcg*hr/ml, which is therapeutic Plan is to: Con't vancomycin scheduled at a dose of: Vancomycin 1500 mg IV Q8H Predicted AUC = 518.03 mcg hr/mL Plan to draw next level on: _08/06/24 @ __0400 Thank you for allowing pharmacy to participate in the care of this patient. Please feel free to contact us with any questions or concerns. María Moctezuma RPH [facility] Department of Pharmacy - [facility] Phone: ADC: [phone] María Moctezuma [facility] 2024-08-05 09:28:00 OPERATIVE NOTE Date of Surgery: 08/05/2024 Attending Physician : Ghassan Durham M.D. Carrier Loader(s): None Pre-Operative Diagnosis: 1. Left hand, middle finger pulp space infection with osteomyelitis of distal phalanx 2- Uncontrolled diabetes Post-Operative Diagnosis: 1- Left hand, middle finger pulp space infection with osteomyelitis of distal phalanx 2- Uncontrolled diabetes Procedure: 1. Left hand incision and excisional deep debridement using the knife deep to subcutaneous, bone and tendons 2- Tissue biopsy 3- Tissue culture Anesthesia: General Antibiotics: Ancef prior to incision Tourniquet: 250 mmHg x 10 minutes EBL: 5 ml IV Fluids: See anesthesia report Implants: None Other fluids: None Drains: None Specimens: Yes Complications: None Post-Op Condition: Stable INDICATIONS: This is 39 years old male who presented to ER on 08/03/2024 with acute left hand middle finger acute pain for evaluation. The symptoms started 5-6 days prior to presentation. The patient returned to ER twice till he presented to [facility] ER. The patient was admitted and found to have uncontrolled diabetes with Hg A1c 11. We reviewed the images and recommended operative debridement.. All risks and benefits were discussed with the patient up to his satisfaction. Th risks of surgery included post operative wound infection, chronic osteomyelitis, need of revision surgeries including finger amputation, loss of life or loss of limb, injury to artery or nerve of the finger. The patient was given the option as questions and all questions were answered to their satisfaction. The patient wished to proceed with surgery. Informed consent was obtained.. PROCEDURE IN DETAIL: On the day of surgery, the family met in the preop holding area. The op site was marked. The patient was escorted back to the operating room. The patient was subsequently placed under general anesthesia. The patient placed supine. All bony prominences were well-padded. Non Sterile tourniquet applied to forearm. The patient's left upper extremity was preprepped with chlorhexidine scrub and hydrogen peroxide wash. The left upper extremity prepped and draped in sterile fashion. At this point we paused for an operative timeout. We verify the patient's name, MR number and date of . We confirmed the side, site and proposed procedure with the consent form. We confirmed the patient had received appropriate antibiotics. When everyone in the room was in agreement, we proceed with surgery. We started by arm elevation to exsanguinate the extremity and elevated the tourniquet to 250 mmHg, where it remained for 10 minutes. We use the knife to come down through skin and soft tissue.We did 4 sets if deep cultures and tissue biopsy. Bijan purulent material came out of the finger. We irrigated the wound using 3 liters of sterile saline solution. We left the wound open for drainage and packed with iodoform dressing. The tourniquet was brought down confirming the return of distal circulation. Sterile dressings were applied. The patient was moved back to the hospital bed, extubated and taken the PACU in stable condition. POST OPERATIVE PLAN: 1. Weightbearing as tolerated to the left upper extremity 2. Continue admission over night for pain control and IV antibiotics 3. Elevation, follow up cultures 4. Return precautions explained to the patient at length with instructions to return to the clinic or emergency room with any worsening pain, fevers, chills, nausea or vomiting. 5. Patient will be scheduled to follow-up in the orthopedics faculty clinic at [facility] in [facility] in 1 weeks 6- Primary team is encouraged to call orthopedics with any questions/concerns Ghassan Durham MD, Ph.D, FACS, FAAOS Board Certified Orthopedic Surgeon [facility] Limb deformity & Reconstruction Pediatric orthopedics Orthopedic Trauma Schedule appointment: [phone] [facility] 2024-08-05 09:28:00 BRIEF OPERATIVE NOTE Date of Surgery: 08/05/2024 Surgeon: Ghassan Durham Pre-Op Diagnosis: 1- Pulp space infection of distal phalanx, middle finger, left hand 2- Osteomyelitis of distal phalanx, middle finger, left hand Post-Op Diagnosis: 1- Pulp space infection of distal phalanx, middle finger, left hand 2- Osteomyelitis of distal phalanx, middle finger, left hand Procedures: 1- INCISION AND DRAINAGE, DEEP DEBRIDEMENT OF DISTAL PHALANX, MIDDLE FINGER, LEFT HAND 2- SOFT TISSUE BIOPSY 3- TISSUE CULTURE Any Complications Encounters: None Estimated Blood Loss: 5 ml Specimens Removed: ID Type Source Tests Collected by Time Destination 1 : left middle finger; no formalin per MD Tissue FINGER SURGICAL PATHOLOGY EXAM Ghassan Durham MD 08/05/2024 0930 A : Wound HAND, LEFT FUNGUS (ROUTINE) CULTURE, IMPLANT/HARDWARE/ORTHO INFECTION CULTURE(AEROBIC/ANAEROBIC) Ghasasn Durham MD 08/05/2024 0904 B : left middle finger; no formalin per MD Tissue FINGER TISSUE CULTURE(AEROBIC/ANAEROBIC) Ghassan Durham MD 08/05/2024 0932 IMPLANTS: NONE Patient's Condition: STABLE Findings: PULP SPACE INFECTION OF DISTAL PHALANX, MIDDLE FINGER, LEFT HAND Any other important information: NONE Please see dictated operative report for additional detail. Ghassan Durham MD, Ph.D, FACS, FAAOS Board Certified Orthopedic Surgeon Chip Drier Limb deformity & Reconstruction Pediatric orthopedics Orthopedic Trauma Schedule appointment: [phone] [facility] [employer] 2024-08-04 17:22:49 Problem: Falls, Risk of Goal: Absence of falls Outcome: Progressing as expected Problem: Skin integrity Impaired (Risk or Actual) Goal: Wound healing Outcome: Progressing as expected Goal: Prevention of new skin breakdown Outcome: Progressing as expected Problem: Discharge Planning Goal: Adequate for discharge Outcome: Progressing as expected Goal: Effective communication Outcome: Progressing as expected Problem: Infection Risk Goal: Absence of infection Outcome: Progressing as expected Problem: Glucose control Goal: Glucose level within specified parameters Outcome: Progressing as expected Problem: Venous Thromboembolism, (actual or risk of) Goal: Absence of venous thromboembolism (Risk) Outcome: Progressing as expected Goal: Prevent further complications associated with VTE diagnosis (Actual) Outcome: Progressing as expected [facility] [employer] 2024-08-04 05:58:03 Summary: Vancomycin Monitoring Images from the original note were not included. General Vancomycin Note [facility] Clinical Pharmacist Consult Consulting Service: Vancomycin (Pharmacy to Dose) Pharmacy Vancomycin Therapeutic Monitoring Note Patient Name DEVONTE BUSCHB Sex Unit Elliott Vila [id number] 1985 male TX2/TX2 Indication for vancomycin and goal Age Total Body Weight Osteomyelitis AUC/BRITNEY 400-600 mcg*hr/ mL 39 year old Wt Readings from Last 1 Encounters: 08/04/24 70.5 kg (155 lb 6.4 oz) Laboratory Data and Vancomycin Dosing CREATININE Date/Time Value Ref Range Status 08/04/2024 03:57 AM 0.59 (L) 0.60 - 1.25 mg/dL Final 08/03/2024 12:12 PM 0.74 0.60 - 1.25 mg/dL Final Date HD/CRRT? Dosing Regimen and frequency @ Times (mg) Vancomycin Level @ Time (mcg/mL) 08/03/24 No Vancomycin 1500 mg IV Q8H given @ 1339, 2103 - 08/04/24 No Vancomycin 1500 IV Q8H given @ 0601. 14.5 @ 0357 - - - - - Assessment & Plan Based on patient-specific levels and Bayesian monitoring, the current regimen is estimated to yield an AUC/BRITNEY of 517.7 mcg*hr/ml, which is therapeutic Plan is to: Con't vancomycin scheduled at a dose of: Vancomycin 1500 mg IV Q8H Predicted AUC = 517.7 mcg.h/mL and level = 13.8 Plan to draw next level on: _08/06/24 @ __0400 Thank you for allowing pharmacy to participate in the care of this patient. Please feel free to contact us with any questions or concerns. Shakir Rodriguez RPH, PharmD [facility] Department of Pharmacy - [facility] Phone: ADC: [phone] Shakir Rodriguez RPH [facility] 2024-08-03 23:15:25 Problem: Falls, Risk of Goal: Absence of falls Outcome: Progressing as expected Problem: Skin integrity Impaired (Risk or Actual) Goal: Wound healing Outcome: Progressing as expected Goal: Prevention of new skin breakdown Outcome: Progressing as expected Problem: Discharge Planning Goal: Adequate for discharge Outcome: Progressing as expected Goal: Effective communication Outcome: Progressing as expected Problem: Infection Risk Goal: Absence of infection Outcome: Progressing as expected Problem: Venous Thromboembolism, (actual or risk of) Goal: Absence of venous thromboembolism (Risk) Outcome: Progressing as expected Goal: Prevent further complications associated with VTE diagnosis (Actual) Outcome: Progressing as expected [facility] 2024-08-03 17:02:29 Problem: Falls, Risk of Goal: Absence of falls Outcome: Progressing as expected Problem: Skin integrity Impaired (Risk or Actual) Goal: Wound healing Outcome: Progressing as expected Goal: Prevention of new skin breakdown Outcome: Progressing as expected Problem: Discharge Planning Goal: Adequate for discharge Outcome: Progressing as expected Goal: Effective communication Outcome: Progressing as expected Problem: Infection Risk Goal: Absence of infection Outcome: Progressing as expected Problem: Glucose control Goal: Glucose level within specified parameters Outcome: Progressing as expected Problem: Venous Thromboembolism, (actual or risk of) Goal: Absence of venous thromboembolism (Risk) Outcome: Progressing as expected Goal: Prevent further complications associated with VTE diagnosis (Actual) Outcome: Progressing as expected [facility] 2024-08-03 14:27:55 Images from the original note were not included. General Vancomycin Note [facility] Clinical Pharmacist Consult Consulting Service: Vancomycin (Pharmacy to Dose) Pharmacy Vancomycin Therapeutic Monitoring Note Patient Name MRN Sex Unit Elliott Vila [id number] 1985 male TX2/TX2 Indication for vancomycin and goal Age Total Body Weight Osteomyelitis AUC/BRITNEY 400-600 mcg*hr/ mL 39 year old Wt Readings from Last 1 Encounters: 08/03/24 74.8 kg (165 lb) Laboratory Data and Vancomycin Dosing CREATININE Date/Time Value Ref Range Status 08/03/2024 12:12 PM 0.74 0.60 - 1.25 mg/dL Final Date HD/CRRT? Dosing Regimen and frequency @ Times (mg) Vancomycin Level @ Time (mcg/mL) 08/03/24 No 1500mg IV Q8H @1339 - - - - - - - Assessment & Plan Based on patient-specific levels and Bayesian monitoring, the current regimen is estimated to yield an AUC/BRITNEY of 489 mcg*hr/ml, which is therapeutic Plan is to: Start vancomycin scheduled at a dose of: 1500mg IV Q8H Continue current regimen Plan to draw next level on: _08/04/24 @ __0400 Thank you for allowing pharmacy to participate in the care of this patient. Please feel free to contact us with any questions or concerns. María Moctezuma RPH, PharmD [facility] Department of Pharmacy - [facility] Phone: ADC: [phone] T [facility] 2024-08-03 14:03:06 Patient admitted to [facility] med surg for diagnosis of finger swelling. Patient agrees to admission, discussed plan of care with patient and family. Patient is awake, A&Ox4, RR even and unlabored on RA. Color appropriate for race. PIV intact x1. No adverse reaction to medications administered while in ED. Belongings with patient to unit. Susan Oh RN [facility] 2024-08-03 14:01:58 Nurse Report Report given to Milagros. Chief complaint, assessment findings, infusion verify and orders reviewed. Susan Oh RN [facility] 2024-08-03 11:30:40 Patient states: "I've noticed this thing on my finger about a week ago. I went to [facility] and the doctor tried to drain it but he didn't do much. He gave me an abx and sent me home. I went back again and they gave me another abx" Noted: wound to left middle finger Pippa Crouch RN [facility] - [facility] 2024-08-03 11:16:00 Images from the original note were not included. [facility] Emergency Department Note Patient Name: Elliott Vila Date of : 1985 39 year old male Treatment Room: IA2/IA2 Primary Care Physician: Sia Monae Patient Escorted by: Self [9] Mode of Arrival: Personal means [1] EMS Treatment Prior to ED Arrival: CHARGEBACK ANALYST treatment: Medication (comment) CHARGEBACK ANALYST treatment comments: 0400 tramadol, abx, gabapentin Travel and Exposure Screening: Symptoms Does patient have any of these symptoms?: (not recorded) Exposure Screening Has patient had contact with someone with a communicable disease in the last month?: (not recorded) Diseases exposed to:: (not recorded) Is Patient ?: (not recorded) Exposure Date: (not recorded) Chief Complaint: Chief Complaint Patient presents with Wound Left middle finger History of Present Illness: Elliott Vila presents with left middle finger swelling and pain. States he went to the ER x2 and has been on 2 different abx. Initial visit, drained and area around the nail and started an abx. Then a few days later it was worsening so he went back to OSH and he describes and needle drainage of pad of finger and added another abx. Reports worsening of finger pain and swelling. Past Medical History/Immunizations: History reviewed. No pertinent past medical history. Tetanus received in last 5 years: No Allergies: No Known Allergies Past Social History: Tobacco Use Never smoked or used smokeless tobacco. Comments: Vapes Past Surgical History: History reviewed. No pertinent surgical history. Review of Systems: Review of Systems Constitutional: Negative for chills and fever. HENT: Negative for congestion and sore throat. Eyes: Negative for pain and visual disturbance. Respiratory: Negative for cough and shortness of breath. Cardiovascular: Negative for chest pain and leg swelling. Gastrointestinal: Negative for abdominal pain, nausea and vomiting. Genitourinary: Negative for dysuria and decreased urine volume. Musculoskeletal: Negative for back pain and joint swelling. Finger pain and swelling Skin: Negative for rash and wound. Neurological: Negative for seizures, weakness and headaches. Psychiatric/Behavioral: Negative for behavioral problems. The patient is not nervous/anxious. Endocrine: Negative for polydipsia and polyphagia. Physical Exam: ED Triage Vitals [08/03/24 1131] Weight 74.8 kg (165 lb) Actual or estimated Estimated by patient/family report Height 1.829 m (6') BP (!) 137/110 Pulse 118 Resp 16 Temp 37.3 ?C (99.1 ?F) Temp source Oral SpO2 100 % Measured on Room air Physical Exam Vitals and nursing note reviewed. Constitutional: General: He is not in acute distress. Appearance: He is well-developed. He is not ill-appearing, toxic-appearing or diaphoretic. HENT: Head: Normocephalic and atraumatic. Right Ear: External ear normal. Left Ear: External ear normal. Nose: Nose normal. Mouth/Throat: Mouth: Mucous membranes are moist. Pharynx: No oropharyngeal exudate. Eyes: General: Right eye: No discharge. Left eye: No discharge. Conjunctiva/sclera: Conjunctivae normal. Pupils: Pupils are equal, round, and reactive to light. Cardiovascular: Rate and Rhythm: Regular rhythm. Tachycardia present. Pulses: Normal pulses. Heart sounds: Normal heart sounds. No murmur heard. Pulmonary: Effort: Pulmonary effort is normal. No respiratory distress. Breath sounds: Normal breath sounds. Abdominal: General: Bowel sounds are normal. There is no distension. Palpations: Abdomen is soft. Tenderness: There is no abdominal tenderness. There is no right CVA tenderness or left CVA tenderness. Musculoskeletal: General: No deformity. Normal range of motion. Hands: Cervical back: Normal range of motion and neck supple. Lymphadenopathy: Cervical: No cervical adenopathy. Skin: General: Skin is warm and dry. Capillary Refill: Capillary refill takes less than 2 seconds. Neurological: Mental Status: He is alert and oriented to person, place, and time. Cranial Nerves: No cranial nerve deficit. Sensory: No sensory deficit. Coordination: Coordination normal. Psychiatric: Mood and Affect: Mood normal. Behavior: Behavior normal. Thought Content: Thought content normal. Judgment: Judgment normal. Radiology: XR Hand 3+ vw left Final Result EXAM: XR HAND 3+ VW LEFT HISTORY: 39 years old Male with middle finger pain and swelling COMPARISON: None. FINDINGS: Radiographs of the left hand demonstrate questionable cortical erosion of the radial aspect of the distal third diaphysis of the proximal phalanx. No acute fractures or dislocations. Joint spaces are preserved. Alignment is within normal limits. Mild soft tissue swelling about the middle finger is seen. IMPRESSION Questionable cortical erosion of the radial aspect of the distal diaphysis of the third proximal phalanx with overlying soft tissue swelling may represent osteomyelitis. Further evaluation with MRI could be performed. Preliminary Report Dictated by Resident: Jai Bender I, Edna Underwood MD., have reviewed this study and agree with the above report. Lab Results: Lab Results CBC WITH DIFF - Abnormal Result Value Ref Range WBC 7.60 4.20 - 10.70 10*3/?L RBC 5.22 4.26 - 5.52 10*6/?L HGB 16.3 12.2 - 16.4 g/dL HCT 45.5 38.4 - 49.3 % MCV 87.2 81.7 - 95.6 fL MCH 31.2 26.1 - 32.7 pg MCHC 35.8 (*) 31.2 - 35.0 g/dL RDW-SD 37.2 (*) 38.5 - 51.6 fL RDW-CV 11.6 (*) 12.1 - 15.4 % PLT 249 150 - 328 10*3/?L MPV 10.2 9.8 - 13.0 fL NRBC/100 WBC 0.0 0.0 - 10.0 /100 WBCs NRBC x10 3 <0.01 10*3/?L GRAN MAT (NEUT) % 60.7 % IMM GRAN % 0.30 % LYMPH % 25.3 % MONO % 10.4 % EOS % 2.4 % BASO % 0.9 % GRAN MAT x10 3 (ANC) 4.62 1.99 - 6.95 10*3/uL IMM GRAN x10 3 <0.03 0.00 - 0.06 10*3/uL LYMPH x10 3 1.92 1.09 - 3.23 10*3/uL MONO x10 3 0.79 0.36 - 1.02 10*3/uL EOS x10 3 0.18 0.06 - 0.53 10*3/uL BASO x10 3 0.07 0.01 - 0.09 10*3/uL COMP. METABOLIC PANEL (72551) - Abnormal NA 135 135 - 145 mmol/L K 3.9 3.5 - 5.0 mmol/L CL 100 98 - 108 mmol/L CO2 TOTAL 28 23 - 31 mmol/L AGAP 7 2 - 16 BUN 11 7 - 23 mg/dL GLUCOSE 263 (*) 70 - 110 mg/dL CREATININE 0.74 0.60 - 1.25 mg/dL TOTAL BILI 0.8 0.1 - 1.1 mg/dL CALCIUM 8.7 8.6 - 10.6 mg/dL T PROTEIN 7.6 6.3 - 8.2 g/dL ALBUMIN 4.2 3.5 - 5.0 g/dL ALK PHOS 95 34 - 122 U/L ALTv 12 5 - 50 U/L AST(SGOT) 14 13 - 40 U/L eGFR 118.2 mL/min/1.73m2 GLYCOSYLATED HEMOGLOBIN (A1C) - Abnormal HGB A1C 11.0 (*) 4.0 - 5.7 % EKG: If EKG completed, see Procedure Note. Orders and Treatments: Orders Placed This Encounter Procedures XR Hand 3+ vw left MR Hand left w wo contrast CBC WITH DIFF COMP. METABOLIC PANEL (31886) Glycosylated Hemoglobin (A1C) Cbc without Diff Basic Metabolic Panel (NA, K, CL, CO2, GLUCOSE, BUN, CREATININE, CA) Lipid Panel (52145)(Total Cholesterol, Triglycerides, HDL) Vancomycin Random Level Pharmacy to Dose: Vancomycin; No Dialysis Consult Orthopaedic Surgery Consult Infectious Disease Orders Placed This Encounter Medications ketorolac (TORADOL) injection 30 mg DISCONTD: vancomycin (VANCOCIN) 1,000 mg in NaCl 0.9% (NS) 250 mL V2B IV Piggyback ceFEPIme (MAXIPIME) 1,000 mg in NaCl 0.9% (NS) 100 mL MINI-BAG NaCl 0.9% (NS) bolus infusion 1,000 mL NaCl 0.9% (NS) IV infusion 1,000 mL enoxaparin (LOVENOX) injection 40 mg acetaminophen (TYLENOL) tablet 650 mg HYDROcodone-acetaminophen (NORCO 5) tablet 1 tablet morpHINE (4 mg/mL) injection 4 mg ondansetron (ZOFRAN (PF)) injection 4 mg dextrose 50 % in water (D50W) injection 25 mL glucagon HCL injection 1 mg Sliding Scale Insulin - Lispro (HumaLOG) ceFEPIme (MAXIPIME) 1,000 mg in NaCl 0.9% (NS) 100 mL MINI-BAG DISCONTD: vancomycin (VANCOCIN) 1,000 mg in NaCl 0.9% (NS) 250 mL V2B IV Piggyback vancomycin placeholder: dosing by pharmacy vancomycin (VANCOCIN) 1,500 mg in NaCl 0.9% (NS) 500 mL V2B IV Piggyback insulin glargine (LANTUS U-100) injection 15 Units insulin lispro (human) (HumaLOG U-100) injection 2 Units atorvastatin (LIPITOR) tablet 40 mg lisinopriL (PRINIVIL,ZESTRIL) tablet 5 mg First Provider Eval: ED Events Date/Time Event User Comments 08/03/241116 Medical Screening Begins RIAN COLON -- 08/03/241116 First Provider Evaluation RIAN COLON -- AdmissionCare Guideline: Musculoskeletal Disease, Inpatient Based on the indications selected for the patient, the bed status of Inpatient was determined to be MET The following indications were selected as present at the time of evaluation of the patient: - Clinical Indications for Admission to Inpatient Care - Hospital admission is needed for appropriate care of the patient because of 1 or more of the following: - Muscle, bone, or orthopedic device infection (eg, nonjoint periprosthetic infection) that requires inpatient care, as indicated by 1 or more of the following: - IV antibiotics needed that cannot be initiated in other than inpatient setting (eg, patient too unstable or home infusion not feasible) - Debridement needed that requires inpatient care (eg, frequency, complex or frequent dressing changes) AdmissionCare documentation entered by: Rian Colon [facility] [employer], 28th edition, Copyright ? 2023 [facility] [employer] [facility] All Rights Reserved. [id number]:11-05:00 ED COURSE Diagnosis/Impression as of 08/03/24 1558 Felon of finger of left hand Finger swelling Procedures: Procedures MDM: Medical Decision Making Worsening swelling and pain to finger. Reports 2 separate drainages by outside hospital and has been on 2 different antibiotics, currently on double coverage and symptoms are worsening. Clinically has paronychia and felon, swelling extends past DIP joint however there is no tenderness over flexor tendon, he is able to flex finger does not have pain with passive range of motion. X-ray shows possible osteo myelitis. Called and spoke with Dr. Durham who recommends admission for IV antibiotics and he will evaluate patient in morning. Problems Addressed: Felon of finger of left hand: acute illness or injury Finger swelling: acute illness or injury Amount and/or Complexity of Data Reviewed Labs: ordered. Radiology: ordered. Risk Prescription drug management. Parenteral controlled substances. Decision regarding hospitalization. Flowsheet Documentation: Scoring Tools: No data recorded Disposition/Condition: ED Disposition ED Disposition Admit - Inpatient Condition -- Comment -- Discharge Medications: There are no discharge medications for this patient. Follow-up: Associated attestation - Eleno Carlisle MD - 08/05/2024 7:01 AM CDT On the date of service, I reviewed the patient s history, exam findings, diagnostic and any interventions or procedures in detail of the assigned advance practice provider and was available for consultation. Eleno Carlisle Jr., MD Clinical Luncheonette Operator [facility] Emergency Department [facility] 2024-08-03 11:16:00 AdmissionCare Guideline: Musculoskeletal Disease, Inpatient Based on the indications selected for the patient, the bed status of Inpatient was determined to be MET The following indications were selected as present at the time of evaluation of the patient: - Clinical Indications for Admission to Inpatient Care - Hospital admission is needed for appropriate care of the patient because of 1 or more of the following: - Muscle, bone, or orthopedic device infection (eg, nonjoint periprosthetic infection) that requires inpatient care, as indicated by 1 or more of the following: - IV antibiotics needed that cannot be initiated in other than inpatient setting (eg, patient too unstable or home infusion not feasible) - Debridement needed that requires inpatient care (eg, frequency, complex or frequent dressing changes) AdmissionCare documentation entered by: Rian Colon [facility], 28th edition, Copyright ? 2023 [facility] [employer], [facility] All Rights Reserved. [id number]:00 [facility]
--- NOTE | 2024-11-28 07:48 | EDPHYS ---
Physician Documentation [facility] Name: Elliott Vila Age: 39 yrs Sex: Male : 1985 Arrival Date: 11/28/2024 Time: 07:02 Bed 14 Private MD: ED Physician Em Fuentes HPI: 11/28 07:44 This 39 yrs old Male presents to ER via Ambulatory with complaints of Finger sp3 Injury. 07:44 39-year-old male with no significant past medical history, history of paronychias on sp3 other fingers, now presents to the ED with pain and swelling around the fingernail of the right fifth digit. Swelling is mild and there is some mild redness there. He denies any injury. Patient does state that he bites his nails potentially causing his sores to the send prior infections. He denies any fever, lymph node swelling, or any other signs or symptoms on ROS at this time.. Historical: - Allergies: 07:27 NKA; hb - Home Meds: 07:27 None [Active]; hb - PMHx: 07:27 None; hb - PSHx: 07:27 inguinal hernia repair; hb - Immunization history:: Adult Immunizations up to date. - Infectious Disease History:: Denies. - Social history:: Smoking status: Patient denies any tobacco usage or history of. ROS: 07:45 Constitutional: Negative for fever, chills, and weight loss, Eyes: Negative for injury, sp3 pain, redness, and discharge, Neck: Negative for injury, pain, and swelling, Cardiovascular: Negative for chest pain, palpitations, and edema, Respiratory: Negative for shortness of breath, cough, wheezing, and pleuritic chest pain, Abdomen/GI: Negative for abdominal pain, nausea, vomiting, diarrhea, and constipation, Back: Negative for injury and pain, Skin: Negative for injury, rash, and discoloration, Neuro: Negative for headache, weakness, numbness, tingling, and seizure, Psych: Negative for depression, anxiety, suicide ideation, homicidal ideation, and hallucinations, Allergy/Immunology: Negative for hives, rash, and allergies, Endocrine: Negative for neck swelling, polydipsia, polyuria, polyphagia, and marked weight changes, 07:45 All other systems are negative, Exam: 07:45 Constitutional: This is a well developed, well nourished patient who is awake, alert, sp3 and in no acute distress. Head/Face: Normocephalic, atraumatic. Neck: Trachea midline, no thyromegaly or masses palpated, and no cervical lymphadenopathy. Supple, full range of motion without nuchal rigidity, or vertebral point tenderness. No Meningismus. Chest/axilla: Normal chest wall appearance and motion. Nontender with no deformity. No lesions are appreciated. Cardiovascular: Regular rate and rhythm with a normal S1 and S2. No gallops, murmurs, or rubs. Normal PMI, no JVD. No pulse deficits. Respiratory: Lungs have equal breath sounds bilaterally, clear to auscultation and percussion. No rales, rhonchi or wheezes noted. No increased work of breathing, no retractions or nasal flaring. Abdomen/GI: Soft, non-tender, with normal bowel sounds. No distension or tympany. No guarding or rebound. No evidence of tenderness throughout. Back: No spinal tenderness. No costovertebral tenderness. Full range of motion. Neuro: Awake and alert, GCS 15, oriented to person, place, time, and situation. Cranial nerves II-XII grossly intact. Motor strength 5/5 in all extremities. Sensory grossly intact. Cerebellar exam normal. Normal gait. Psych: Awake, alert, with orientation to person, place and time. Behavior, mood, and affect are within normal limits. 07:45 Musculoskeletal/extremity: Right fifth digit paronychia versus cellulitis. No fluctuant area to drain.. Vital Signs: 07:25 BP 123 / 91; Pulse 83; Resp 16; Temp 98.1; Pulse Ox 100% on R/A; Weight 74.84 kg; hb Height 6 ft. 0 in. ; Pain 8/10; 07:53 BP 128 / 82; Pulse 92; Resp 18; Pulse Ox 100% ; cm10 07:25 Body Mass Index 22.38 (74.84 kg, 182.88 cm) hb 07:25 Pain Scale: Adult hb MDM: 07:18 Medical Screening Exam initiated sp3 07:46 Data reviewed: vital signs, nurses notes. ED course: Patient states that the last time sp3 he had an infection he was placed on Bactrim and clindamycin which "did not help". He wants a different antibiotic. Discussed potential drainage however currently there is no purulent material or abscess that can be drained. I told him if it gets worse or fluctuant to come back and we can perform paronychia drainage with 11 blade. Will discharge on general instructions and Augmentin.. Administered Medications: No medications were administered Disposition Summary: 11/28/24 07:47 Discharge Ordered Notes: Location: Home sp3 Condition: Stable sp3 Diagnosis - Paronychia sp3 - Cellulitis of finger sp3 Followup: sp3 - With: Private Physician - When: Upon discharge from the Emergency Department - Reason: Continuance of care Discharge Instructions: - Discharge Summary Sheet sp3 - Paronychia sp3 Forms: - Medication Reconciliation Form sp3 - Antibiotic Education sp3 - Prescription Opioid Use sp3 - Patient Portal Instructions sp3 - Leadership Thank You Letter sp3 - Work release form cm10 Prescriptions: - Augmentin 875-125 mg Oral Tablet - take 1 tablet ORAL route every 12 hours for 10 days; 20 tablet; Refills: 0, sp3 Product Selection Permitted Signatures: Cesilia Deshpande, RN RN Em Fuentes MD MD sp3
--- NOTE | 2024-11-28 07:48 | ER ---
Nurse's Notes [facility] Name: Elliott Vila Age: 39 yrs Sex: Male : 1985 Arrival Date: 11/28/2024 Time: 07:02 Bed 14 Private MD: Diagnosis: Paronychia;Cellulitis of finger Presentation: 11/28 07:25 Chief complaint: Right 5th finger pain and swelling x 2 days. Coronavirus screen: At this time, the client does not indicate any symptoms associated with coronavirus-19. Ebola Screen: No symptoms or risks identified at this time. Initial Sepsis Screen: Does the patient meet any 2 criteria? No. Patient's initial sepsis screen is negative. Does the patient have a suspected source of infection? No. Patient's initial sepsis screen is negative. Risk Assessment: Do you want to hurt yourself or someone else? Patient reports no desire to harm self or others. Onset of symptoms was November 27, 2024. 07:25 Method Of Arrival: Ambulatory 07:25 Acuity: SHIMA 4 Triage Assessment: 08:07 Injury Description: No injury. cm10 Historical: - Allergies: 07:27 NKA; hb - Home Meds: 07:27 None [Active]; hb - PMHx: 07:27 None; hb - PSHx: 07:27 inguinal hernia repair; hb - Immunization history:: Adult Immunizations up to date. - Infectious Disease History:: Denies. - Social history:: Smoking status: Patient denies any tobacco usage or history of. Screenin:45 [facility] ED Fall Risk Assessment (Adult) History of falling in the last 3 months, cm10 including since admission No falls in past 3 months (0 pts) Confusion or Disorientation No (0 pts) Intoxicated or Sedated No (0 pts) Impaired Gait No (0 pts) Mobility Assist Device Used No (0 pt) Altered Elimination No (0 pt) Score/Fall Risk Level 0 - 2 = Low Risk Oriented to surroundings, Maintained a safe environment, Hourly rounding (assess needs \T\ fall precautionary measures) done. Abuse screen: Denies threats or abuse. Denies injuries from another. Nutritional screening: No deficits noted. Tuberculosis screening: No symptoms or risk factors identified. Assessment: 07:45 General: Appears in no apparent distress. comfortable, Behavior is calm, cooperative, cm10 appropriate for age. Pain: Complains of pain in left little finger Pain currently is 8 out of 10 on a pain scale. Neuro: No deficits noted. Level of Consciousness is awake, alert, obeys commands, Oriented to person, place, time, situation, Appropriate for age. Respiratory: No deficits noted. Airway is patent Respiratory effort is even, unlabored, Respiratory pattern is regular, symmetrical. Derm: swelling noted around nail bed of left little finger. Musculoskeletal: Range of motion: intact in all extremities, Reports pain in left little finger. Vital Signs: 07:25 BP 123 / 91; Pulse 83; Resp 16; Temp 98.1; Pulse Ox 100% on R/A; Weight 74.84 kg; hb Height 6 ft. 0 in. ; Pain 8/10; 07:53 BP 128 / 82; Pulse 92; Resp 18; Pulse Ox 100% ; cm10 07:25 Body Mass Index 22.38 (74.84 kg, 182.88 cm) hb 07:25 Pain Scale: Adult hb ED Course: 07:07 Patient arrived in ED. gm2 07:07 Em Fuentes MD is Attending Physician. sp3 07:27 Triage completed. hb 07:28 Arm band placed on. hb 07:29 Maite Phelps, ZIYAD is Primary Nurse. cm10 07:45 Patient has correct armband on for positive identification. Bed in low position. Call cm10 light in reach. Side rails up X 1. Provided Education on: ER process and procedures.. Cardiac monitoring not applicable on this patient. 07:45 No provider procedures requiring assistance completed. Patient did not have IV access cm10 during this emergency room visit. Administered Medications: No medications were administered Medication: 07:45 VIS not applicable for this client. cm10 Outcome: 07:47 Discharge ordered by . sp3 08:07 Discharged to home ambulatory, cm10 08:07 Condition: good 08:07 Discharge instructions given to patient, Instructed on discharge instructions, follow up and referral plans. medication usage, Demonstrated understanding of instructions, follow-up care, medications, Prescriptions given X 1, 08:07 Patient left the ED. cm10 Signatures: Cesilia Deshpande RN ZIYAD Em Fuentes MD MD sp3 Maite Phelps RN RN cm10 Deana Stovall gm2
[2024-11-28 08:11] VITALS: TEMP 98.1; O2SAT 100
[2024-11-28 08:13] VITALS: BP 128/82
== END 2024-11-28 08:07 | disposition home or self-care (01) ==
LOC: ER 07:02
DX: L03.011 Cellulitis of right finger (principal)
CPT/HCPCS: 99283

== ENCOUNTER 2024-11-30 19:34 | Emergency (ER) | payer OTHER ==
--- OUTSIDE RECORDS SUMMARY | 2024-11-30 19:38 | XMS REPORT | Continuity of Care Document ---
Author Name Unknown Address [address] [place] [address] Organization [facility] [place] Address [address] [place] [address] Care Team Providers Care [employer] Technician Name Role Phone SIA MONAE Primary Care Physician Unavail able Timothy Jackson Attending Clinician [phone] Graciela Lopez DO Attending Clinician Srinivasan LACKEY, Celina King Attending Clinician [phone] LASHA HILLS Attending Clinician Unavailable Ghassan Durham MD Attending Clinician Lolly Eaton MD Attending Clinician LASHA HILLS Admitting Clinician Unavailable Payers Payer Name Policy Type Policy Number Effective Date Expirati on Date Source [facility] [id number] 2024 00:00:00 2024-07 00:00:00 Problems Condition Name Condition Details Condition Category Status Onset Date Resolution Date Last Treatment Date Treating Clinician Comments Source Finger swelling Finger swelling Disease Active 08-03 00:00: 00 [facility] Allergies, Adverse Reactions, Alerts Allergy Name Allergy Type Status Severity Reaction(s) Onset Date Inactive Date Treating Clinician Comments Source NO KNOWN ALLERGIE S Drug Class Active [facility] Social History Social Habit Start Date Stop Date Quantity Comments Source [facility] intake 2024-08-30 00:00:00 2024-08-30 00:00:00 Ex-drinker (finding) [facility] History of Social function 2024-08-04 00:00:00 2024-08-04 00:00:00 [facility] Tobacco use and exposure 2024-08-03 00:00:00 2024-08-03 00:00:00 Smokeless tobacco non-user [facility] Education 2024-08-03 00:00:00 2024-08-03 00:00:00 21 [facility] Tobacco Comment 2024-08-03 00:00:00 2024-08-03 00:00:00 Vapes [facility] Sex assigned at 1985 00:00:00 1985 00:00:00 [facility] Smoking Status Start Date Stop Date Source Unknown if ever smoked [facility] Never smoked tobacco [facility] Medications Ordered Medication Name Filled Medication Name Start Date Stop Date Current Medication? Ordering Clinician Indication Dosage Frequency Signature (SIG) Comments Components Source alteplase (CATHFLO ACTIVASE) injection 2 mg 08-30 20:45: 00 08-31 08:44 :00 No 2mg 2 mg, Intravenou s, ONCE, 1 dose, On 08/30/24 at 1545, Routine [facility] lisinopriL 5 mg tablet 08-08 00:00: 00 09-08 04:59 :00 No [id number] 5mg Take 1 tablet by mouth in the morning for 30 days. [facility] insulin glargine 100 unit/mL injection 08-08 00:00: 00 09-08 04:59 :00 No [id number] 18U inject 18 Units under the skin in the morning for 30 days. [facility] morphine (2 mg/mL) injection 2 mg morphine (2 mg/mL) injection 2 mg 08-07 04:15: 00 08-07 03:26 :00 No 2mg 2 mg, Slow IV Push, ONCE, 1 dose, On Sun08/06/24 at 2315, Routine [facility] Blood-Gluco se Sensor (FREESTYLE PETE 3 SENSOR) Lisa 08-07 00:00: 00 Yes [id number] Use as directed [facility] Blood-Gluco se Meter (FREESTYLE FREEDOM) Kit 08-07 00:00: 00 Yes [id number] Use as directed [facility] atorvastati n 40 mg tablet 08-07 00:00: 00 09-07 04:59 :00 No [id number] 40mg Take 1 tablet by mouth at bedtime for 30 days. [facility] HYDROcodone -acetaminop hen 5-325 mg tablet 08-07 00:00: 00 08-15 04:59 :00 No [id number] 1{tbl} Take 1 tablet by mouth every 6 (six) hours as needed for Pain (scale 7-10) for up to 7 days. Indication s: acute pain [facility] lidocaine 1% (PF) (XYLOCAINE) injection 5 mL 08-06 16:35: 03 08-07 15:30 :00 No 5mL 5 mL, Subcutaneo us, PRN, 1 dose, Starting on Sun08/06/24 at 1135, Until Mirna 08/07/24 at 1030, Routine, Local anesthesia [facility] NaCl 0.9% (NS) injection 10 mL 08-06 16:35: 03 08-07 20:01 :37 No 10mL 10 mL, Slow IV Push, PRN, Starting on Sun08/06/24 at 1135, Until Mirna 08/07/24 at 1501, Routine, line maintenanc e [facility] HYDROcodone -acetaminop hen (NORCO) 10-325 mg tablet 1 tablet HYDROcodone -acetaminop hen (NORCO) 10-325 mg tablet 1 tablet 08-06 14:54: 55 08-07 20:01 :37 No 1{tbl} 1 tablet, Oral, Q6HPRN, Starting on Sun08/06/24 at 0954, Until Sun08/07/24 at 1501, Routine, Pain (scale 7-10) [facility] morphine (2 mg/mL) injection 2 mg morphine (2 mg/mL) injection 2 mg 08-06 05:32: 05 08-06 14:55 :21 No 2mg 2 mg, Slow IV Push, Q4HPRN, Starting on Sun08/06/24 at 0032, Until Sun08/06/24 at 0955, Routine, Pain (scale 7-10) [facility] bupivacaine (preserv free) (SENSORCAIN E MPF) 0.25 % (2.5 mg/mL) injection 08-05 14:40: 00 Yes PRN, Starting on Sun08/05/24 at 0940, Until Discontinu ed, Routine, Intra-op [facility] sodium chloride 0.9 % irrigation solution 08-05 14:30: 00 Yes PRN, Starting on Sun08/05/24 at 0930, Until Discontinu ed, Intra-op [facility] insulin glargine (LANTUS U-100) injection 18 Units insulin glargine (LANTUS U-100) injection 18 Units 08-05 14:00: 00 Yes 18U 18 Units, Subcutaneo us, DAILY, First dose (after last modificati on) on Sun08/05/24 at 0900, Until Discontinu ed, Routine [facility] morphine (2 mg/mL) injection 2 mg morphine (2 mg/mL) injection 2 mg 08-05 01:48: 08 08-06 01:47 :08 No 2mg 2 mg, Slow IV Push, Q4HPRN, Starting on Sun08/04/24 at 2047, Until Sun08/05/24 at 2046, Routine, Pain (scale 7-10) [facility] traZODone (DESYREL) tablet 25 mg traZODone (DESYREL) tablet 25 mg 08-04 23:35: 35 08-07 20:01 :37 No 25mg 25 mg, Oral, QHSPRN, Starting on Sun08/04/24 at 1835, Until Mirna 08/07/24 at 1501, Routine, [facility] gadobenate dimeglumine (MULTIHANCE -15 mL) injection 14.1 mL 08-04 17:00: 00 08-04 16:55 :00 No [id number] .2mL/kg 14.1 mL (0.2 mL/kg ?70.5 kg), Intravenou s, ONCE, 1 dose, On Sun08/04/24 at 1200, Routine [facility] ALPRAZolam (XANAX) tablet 0.5 mg ALPRAZolam (XANAX) tablet 0.5 mg 08-04 06:03: 30 08-07 20:01 :37 No .5mg 0.5 mg, Oral, TIDPRN, Starting on Sun08/04/24 at 0103, Until Mirna 08/07/24 at 1501, Routine, Anxiety [facility] atorvastati n (LIPITOR) tablet 40 mg atorvastati n (LIPITOR) tablet 40 mg 08-04 02:00: 00 Yes 40mg 40 mg, Oral, QHS, First dose on Sun08/03/24 at 2100, Until Discontinu ed, Routine [facility] Sliding Scale Insulin - Lispro (HumaLOG) insulin lispro (human) (HumaLOG U-100) injection 2 Units 08-03 22:00: 00 08-07 20:01 :37 No 2U Subcutaneo us, TID MEALS+HS, First dose on Sun08/03/24 at 1700, Until Discontinu ed, Routine [facility] enoxaparin (LOVENOX) injection 40 mg enoxaparin (LOVENOX) injection 40 mg 08-03 22:00: 00 08-07 20:01 :37 No 40mg 40 mg, Subcutaneo us, DAILY, First dose on Sun08/03/24 at 1700, Until Discontinu ed, Routine [facility] lisinopriL (PRINIVIL,Z ESTRIL) tablet 5 mg lisinopriL (PRINIVIL,Z ESTRIL) tablet 5 mg 08-03 20:30: 00 Yes 5mg 5 mg, Oral, DAILY, First dose on Sun08/03/24 at 1530, Until Discontinu ed, Routine [facility] insulin glargine (LANTUS U-100) injection 15 Units insulin glargine (LANTUS U-100) injection 15 Units 08-03 20:30: 00 08-04 23:33 :00 No 15U 15 Units, Subcutaneo us, DAILY, First dose on Sun08/03/24 at 1530, Until Discontinu ed, Routine [facility] vancomycin (VANCOCIN) 1,500 mg in NaCl [...] Site: Bone, Duration of therapy: 7 days [facility] NaCl 0.9% (NS) bolus infusion 1,000 mL 08-03 18:15: 00 08-03 18:56 :00 No 1000mL at 999 mL/hr, 1,000 mL, IV Infusion, ONCE, 1 dose, On [place] 08/03/24 at 1315, STAT [facility] glucagon HCL injection 1 mg 08-03 17:55: 06 08-07 20:01 :37 No 1mg [facility] dextrose 50 % in water (D50W) injection 25 mL 08-03 17:55: 06 08-07 20:01 :37 No 25mL [facility] ondansetron (ZOFRAN (PF)) injection 4 mg 08-03 17:54: 58 08-07 20:01 :37 No 4mg 4 mg, Slow IV Push, Q6HPRN, Starting on Sun08/03/24 at 1254, Until Sun08/07/24 at 1501, Administer over 2-5 Minutes, 2 mL [facility] morpHINE (4 mg/mL) injection 4 mg [id number] 17:54: 57 08-04 17:53 :57 No 4mg 4 mg, Slow IV Push, Q4HPRN, Starting on Sun08/03/24 at 1254, Until Sun08/04/24 at 1253, Routine, Pain (scale 7-10) [facility] HYDROcodone -acetaminop hen (NORCO 5) tablet 1 tablet HYDROcodone -acetaminop hen (NORCO 5) tablet 1 tablet 08-03 17:54: 55 08-05 17:53 :55 No 1{tbl} 1 tablet, Oral, Q6HPRN, Starting on Sun08/03/24 at 1254, Until Sun08/05/24 at 1253, Routine, Pain (scale 4-6) [facility] acetaminoph en (TYLENOL) tablet 650 mg 08-03 17:54: 50 08-07 20:01 :37 No 650mg [facility] ketorolac (TORADOL) injection 30 mg 08-03 17:30: 00 08-03 17:26 :00 No 30mg 30 mg, Slow IV Push, ONCE, 1 dose, On Sun08/03/24 at 1230, SYLVIA [facility] ceFEPIme (MAXIPIME) 1,000 mg in NaCl 0.9% (NS) 100 mL MINI-BAG 08-03 17:15: 00 08-03 17:56 :00 No 1000mg 1,000 mg, IV Piggyback, ONCE, 1 dose, On Sun08/03/24 at 1215, Administer over 30 Minutes, 100 mL, Reason for Anti-Infec tive: Documented Infection, Documented Infection Site: Bone, Duration of therapy: Once (ED) [facility] Vital Signs Vital Name Observation Time Observation Value Comments S constantin Systolic blood pressure 2024-09-08 03:40:00 123 mm[Hg] [facility] Diastolic blood pressure 2024-09-08 03:40:00 84 mm[Hg] [facility] Heart rate 2024-09-08 03:40:00 103 /min [facility] Body temperature 2024-09-08 03:40:00 36.89 Radha [facility] Respiratory rate 2024-09-08 03:40:00 18 /min [facility] Body height 2024-09-08 03:40:00 182.9 cm [facility] Body weight 2024-09-08 03:40:00 72.576 kg [facility] BMI 2024-09-08 03:40:00 21.70 kg/m2 [facility] Oxygen saturation in Arterial blood by Pulse oximetry 2024-09-08 03:40:00 100 /min [facility] Systolic blood pressure 2024-08-30 19:53:00 137 mm[Hg] [facility] Diastolic blood pressure 2024-08-30 19:53:00 83 mm[Hg] [facility] Heart rate 2024-08-30 19:53:00 77 /min [facility] Body temperature 2024-08-30 19:53:00 36.89 Radha [facility] Respiratory rate 2024-08-30 19:53:00 16 /min [facility] Body height 2024-08-30 19:53:00 182.9 cm [facility] Body weight 2024-08-30 19:53:00 71.668 kg [facility] BMI 2024-08-30 19:53:00 21.43 kg/m2 [facility] Oxygen saturation in Arterial blood by Pulse oximetry 2024-08-30 19:53:00 100 /min [facility] Systolic blood pressure 2024-08-07 16:45:00 134 mm[Hg] [facility] Diastolic blood pressure 2024-08-07 16:45:00 98 mm[Hg] [facility] Heart rate 2024-08-07 16:45:00 84 /min [facility] Body temperature 2024-08-07 16:45:00 36.28 Radha [facility] Respiratory rate 2024-08-07 16:45:00 18 /min [facility] Oxygen saturation in Arterial blood by Pulse oximetry 2024-08-07 16:45:00 100 /min [facility] Body weight 2024-08-06 08:59:00 70.988 kg [facility] BMI 2024-08-06 08:59:00 21.23 kg/m2 [facility] Body height 2024-08-03 19:32:00 182.9 cm [facility] Systolic blood pressure 2024-08-05 15:30:00 113 mm[Hg] [facility] Diastolic blood pressure 2024-08-05 15:30:00 73 mm[Hg] [facility] Heart rate 2024-08-05 15:30:00 74 /min [facility] Respiratory rate 2024-08-05 15:30:00 13 /min [facility] Oxygen saturation in Arterial blood by Pulse oximetry 2024-08-05 15:30:00 98 /min [facility] Body temperature 2024-08-05 14:55:00 35.94 Radha [facility] Body weight 2024-08-05 08:03:00 70.489 kg [facility] BMI 2024-08-05 08:03:00 21.23 kg/m2 [facility] Body height 2024-08-03 19:32:00 182.9 cm [facility] Procedures Procedure Date / Time Performed Performing Clinician Source POCT GLUCOSE (AUTOMATED) 2024-08-07 16:46:00 [place] [facility] XR CHEST 1 VW 2024-08-07 16:42:25 Emery Vallecillo [facility] POCT GLUCOSE (AUTOMATED) 2024-08-07 12:33:00 [place], [facility] BASIC METABOLIC PANEL (NA, K, CL, CO2, GLUCOSE, BUN, CREATININE, CA) 2024-08-07 10:04:00 Emery Vallecillo [facility] CBC WITH DIFF 2024-08-07 10:04:00 Emery Vallecillo Carolann [facility] POCT GLUCOSE (AUTOMATED) 2024-08-07 08:48:00 Ovdhiraj [facility] POCT GLUCOSE (AUTOMATED) 2024-08-07 01:36:00 Ovdhiraj [facility] POCT GLUCOSE (AUTOMATED) 2024-08-06 21:26:00 Ovdhiraj [facility] POCT GLUCOSE (AUTOMATED) 2024-08-06 16:31:00 Ovdhiraj [facility] POCT GLUCOSE (AUTOMATED) 2024-08-06 16:31:00 Reinier [facility] POCT GLUCOSE (AUTOMATED) 2024-08-06 12:22:00 Ovdhiraj [facility] POCT GLUCOSE (AUTOMATED) 2024-08-06 12:22:00 Reinier [facility] BASIC METABOLIC PANEL (NA, K, CL, CO2, GLUCOSE, BUN, CREATININE, CA) 2024-08-06 09:56:00 Reinier [facility] VANCOMYCIN RANDOM LEVEL 2024-08-06 09:56:00 Reinier [facility] BASIC METABOLIC PANEL (NA, K, CL, CO2, GLUCOSE, BUN, CREATININE, CA) 2024-08-06 09:56:00 Reinier [facility] VANCOMYCIN RANDOM LEVEL 2024-08-06 09:56:00 Ovdhiraj [facility] POCT GLUCOSE (AUTOMATED) 2024-08-06 01:13:00 Ovdhiraj [facility] POCT GLUCOSE (AUTOMATED) 2024-08-06 01:13:00 Ovdhiraj [facility] POCT GLUCOSE (AUTOMATED) 2024-08-05 21:44:00 Ovdhiraj [facility] POCT GLUCOSE (AUTOMATED) 2024-08-05 21:44:00 Ovdhiraj [facility] POCT GLUCOSE (AUTOMATED) 2024-08-05 16:39:00 Reinier [facility] POCT GLUCOSE (AUTOMATED) 2024-08-05 16:39:00 Reinier [facility] POCT GLUCOSE (AUTOMATED) 2024-08-05 14:58:00 Reinier [facility] POCT GLUCOSE (AUTOMATED) 2024-08-05 14:58:00 Reinier [facility] TISSUE CULTURE(AEROBIC/ANAEROB IC) 2024-08-05 14:32:00 Marva [facility] TISSUE CULTURE(AEROBIC/ANAEROB IC) 2024-08-05 14:32:00 Marva [facility] WOUND CULTURE 2024-08-05 14:04:[address] [facility] FUNGUS (ROUTINE) CULTURE 2024-08-05 14:04:00 Marva [facility] WOUND CULTURE 2024-08-05 14:04:[address] [facility] FUNGUS (ROUTINE) CULTURE 2024-08-05 14:04:00 Marva [facility] INCISION AND DRAINAGE DIGIT HAND 2024-08-05 13:53:00 Marva [facility] INCISION AND DRAINAGE DIGIT HAND 2024-08-05 13:53:00 Marva [facility] POCT GLUCOSE (AUTOMATED) 2024-08-05 12:36:00 Reinier [facility] POCT GLUCOSE (AUTOMATED) 2024-08-05 12:36:00 Reinier [facility] POCT GLUCOSE (AUTOMATED) 2024-08-05 01:07:00 Reinier [facility] POCT GLUCOSE (AUTOMATED) 2024-08-05 01:07:00 Reinier [facility] POCT GLUCOSE (AUTOMATED) 2024-08-04 21:32:00 Reinier [facility] POCT GLUCOSE (AUTOMATED) 2024-08-04 21:32:00 [place], [facility] POCT GLUCOSE (AUTOMATED) 2024-08-04 17:14:00 Reinier [facility] POCT GLUCOSE (AUTOMATED) 2024-08-04 [facility]:14[facility] 2024-08-04 16:55:37 Ovdhiraj, [facility] MR HAND LEFT W WO CONTRAST 2024-08-04 16:55:37 Reinier, [facility] POCT GLUCOSE (AUTOMATED) 2024-08-04 12:20:00 Reinier [facility] POCT GLUCOSE (AUTOMATED) 2024-08-04 12:20:00 Reinier [facility] BASIC METABOLIC PANEL (NA, K, CL, CO2, GLUCOSE, BUN, CREATININE, CA) 2024-08-04 08:57:00 Reinier [facility] LIPID PANEL ([id number])(TOTAL CHOLESTEROL, TRIGLYCERIDES, HDL) 2024-08-04 08:57:00 [facility] VANCOMY[facility]IN RANDOM LEVEL 2024-08-04 08:57:00 [place] [facility] CBC WITHOUT DIFF 2024-08-04 08:57:00 L[place] [facility] BASIC METABOLIC PANEL (NA, K, CL, CO2, GLUCOSE, BUN, CREATININE, CA) 2024-08-04 08:57:00 [facility] LIPID PANEL (30213)(TOTAL CHOLESTEROL, TRIGLYCERIDES, HDL) 2024-08-04 08:57:00 [facility] VANCOMYCIN RANDOM LEVEL 2024-08-04 08:57:00 [place] [facility] CBC WITHOUT DIFF 2024-08-04 08:57:00 Lasha Hills [facility] POCT GLUCOSE (AUTOMATED) 2024-08-04 01:09:00 [facility]SE (AUTOMATED) 2024-08-04 01:09:00 Reinier [facility] POCT GLUCOSE (AUTOMATED) 2024-08-03 21:34:00 [place] [facility] POCT GLUCOSE (AUTOMATED) 2024-08-03 21:34:00 [facility] COMP. METABOLIC PANEL ([id number]) 2024-08-03 17:12:00 Rian Colon [facility] CBC WITH DIFF 2024-08-03 17:12:00 Rian Colon [facility] GLYCOSYLATED HEMOGLOBIN (A1C) 2024-08-03 17:12:00 [place] [facility] COMP. METABOLIC PANEL ([id number]) 2024-08-03 17:12:00 Rian Colon [facility] CBC WITH DIFF 2024-08-03 17:12:00 Rian Colon [facility] GLYCOSYLATED HEMOGLOBIN (A1C) 2024-08-03 17:12[facility]00 [facility]+ VW LEFT 2024-08-03 16:55:05 Rian Colon [facility] XR HAND 3+ VW LEFT 2024-08-03 16:55:05 Rian Colon [facility] Encounters Start Date/Time End Date/Time Encounter Type Admission Type [facility] Encounter ID Source 2024-09-07 22:41:00 2024-09-08 00:01:00 Emergency Timothy Ervin [facility] [id number] [facility] 2024-08-30 14:57:00 2024-08-30 15:38:00 Emergency Graciela Lopez [facility] [id number] [id number] [facility] 2024-08-08 00:00:00 2024-08-08 15:26:00 Transition of Care Celina Mattson Marisa M [address] [facility] [id number] [id number] [id number] [facility] 2024-08-03 11:33:00 2024-08-07 15:00:00 Inpatient X LASHA HILLS [facility] [id number] [facility] 2024-08-03 11:33:00 2024-08-07 15:00:00 Hospital Encounter X LASHA HILLS [facility] PETER [id number] [facility] 2024-08-05 08:45:00 2024-08-05 10:33:00 Surgery Ghassan Durham [facility] [id number] [id number] [id number] [facility] 2021-05-16 00:00:00 2021-05-16 00:00:00 Telephone Lolly Eaton [facility] [id number] [id number] [id number] [facility] Results Test Description Test Time Test [...] Other: ?No acute osseous abnormality is seen[facility] 12:34:37* Test Item Value Reference Range Interpretation Comme nts POCT GLU (test code = 6980138380) 169 mg/dL 70-110 H Lab Interpretation (test cod e = 66754-9) Abnormal [facility] GLUCOSE (AUTOMATED)2024-08-07 08:49:02* Test Item Value Reference Range Interpretation Comme nts POCT GLU (test code = 2393914915) 194 mg/dL 70-110 H Lab Interpretation (test cod e = 40981-0) [facility] 01:37:30* Test Item Value Reference Range Interpretation Comme nts POCT GLU (test code = 3298537535) 331 mg/dL 70-110 H Lab Interpretation (test cod e = 72243-9) Abnormal [facility] GLUCOSE (AUTOMATED)2024-08-06 21:27:01* Test Item Value Reference Range Interpretation Comme nts POCT GLU (test code = 9740752547) 157 mg/dL 70-110 H Lab Interpretation (test cod e = 80279-6) Abnormal [facility] GLUCOSE (AUTOMATED)2024-08-06 16:32:04* Test Item Value Reference Range Interpretation Comme nts POCT GLU (test code = 8265442580) 222 mg/dL 70-110 H Lab Interpretation (test cod e = 77670-2) Abnormal [facility] GLUCOSE (AUTOMATED)2024-08-06 16:32:04* Test Item Value Reference Range Interpretation Comme nts POCT GLU (test code = 4853585159) 222 mg/dL 70-110 H Lab Interpretation (test cod e = 58318-5) [facility] 12:23:31* Test Item Value Reference Range Interpretation Comme nts POCT GLU (test code = 7200782449) 210 mg/dL 70-110 H Lab Interpretation (test cod e = 59227-7) [facility] 12:23:31* Test Item Value Reference Range Interpretation Comme nts POCT GLU (test code = 4981226207) 210 mg/dL 70-110 H Lab Interpretation (test cod e = 75582-6) Abnormal [facility] GLUCOSE (AUTOMATED)2024-08-06 01:14:29* Test Item Value Reference Range Interpretation Comme nts POCT GLU (test code = 1208443234) 275 mg/dL 70-110 H Lab Interpretation (test cod e = 34833-5) [facility] 01:14:29* Test Item Value Reference Range Interpretation Comme nts POCT GLU (test code = 9936109442) 275 mg/dL 70-110 H Lab Interpretation (test cod e = 75682-7) [facility]-05 21:45:00* Test Item Value Reference Range Interpretation Comme nts POCT GLU (test code = 1089367100) 239 mg/dL 70-110 H Lab Interpretation (test cod e = 35766-9) [facility]-05 21:45:00* Test Item Value Reference Range Interpretation Comme nts POCT GLU (test code = 0929917946) 239 mg/dL 70-110 H Lab Interpretation (test cod e = 21980-6) Abnormal [facility] GLUCOSE (AUTOMATED)2024-08-05 16:39:32* Test Item Value Reference Range Interpretation Comme nts POCT GLU (test code = 0399188211) 227 mg/dL 70-110 H Lab Interpretation (test cod e = 49712-0) Abnormal [facility] GLUCOSE (AUTOMATED)2024-08-05 16:39:32* Test Item Value Reference Range Interpretation Comme nts POCT GLU (test code = 4581837601) 227 mg/dL 70-110 H Lab Interpretation (test cod e = 50821-0) Abnormal [facility] GLUCOSE (AUTOMATED)2024-08-05 14:59:04* Test Item Value Reference Range Interpretation Comme nts POCT GLU (test code = 3417427514) 126 mg/dL 70-110 H Lab Interpretation (test cod e = 91820-2) [facility] 14:59:04* Test Item Value Reference Range Interpretation Comme nts POCT GLU (test code = 7584811425) 126 mg/dL 70-110 H Lab Interpretation (test cod e = 63587-5) [facility]24-[facility]-05 12:37:31* Test Item Value Reference Range Interpretation Comme nts POCT GLU (test code = 3079225860) 152 mg/dL 70-110 H Lab Interpretation (test cod e = 94467-2) Abnormal [facility] GLUCOSE (AUTOMATED)2024-08-05 12:37:31* Test Item Value Reference Range Interpretation Comme nts POCT GLU (test code = 9588809175) 152 mg/dL 70-110 H Lab Interpretation (test cod e = 66860-7) Abnormal [facility] GLUCOSE (AUTOMATED)2024-08-05 01:07:59* Test Item Value Reference Range Interpretation Comme nts POCT GLU (test code = 5573013170) 151 mg/dL 70-110 H Lab Interpretation (test cod e = 34596-6) Abnormal [facility] GLUCOSE (AUTOMATED)2024-08-05 01:07:59* Test Item Value Reference Range Interpretation Comme nts POCT GLU (test code = 6544026793) 151 mg/dL 70-110 H Lab Interpretation (test cod e = 96406-4) Abnormal [facility] GLUCOSE (AUTOMATED)2024-08-04 21:34:01* Test Item Value Reference Range Interpretation Comme nts POCT GLU (test code = 4548743987) 205 mg/dL 70-110 H Lab Interpretation (test cod e = 70905-1) Abnormal [facility] GLUCOSE (AUTOMATED)2024-08-04 21:34:01* Test Item Value Reference Range Interpretation Comme nts POCT GLU (test code = 1458892438) 205 mg/dL 70-110 H Lab Interpretation (test cod e = 18815-7) [facility] [id number] 17:22:33 EXAM: MRI LEFT HAND COMPARISON: Left [...] enhancement are presentin the long finger distal phalanx.[facility] Hand left w wo [id number] 17:22:33EXAM: MRI LEFT HAND COMPARISON: Left hand [...] enhancement are presentin the long finger distal phalanx.[facility] GLUCOSE (AUTOMATED)2024-08-04 17:15:32* Test Item Value Reference Range Interpretation Comme nts POCT GLU (test code = 5376532631) 245 mg/dL 70-110 H Lab Interpretation (test cod e = 95679-8) Abnormal [facility] GLUCOSE (AUTOMATED)2024-08-04 17:15:32* Test Item Value Reference Range Interpretation Comme nts POCT GLU (test code = 1517722324) 245 mg/dL 70-110 H Lab Interpretation (test cod e = 85024-3) Abnormal [facility] GLUCOSE (AUTOMATED)2024-08-04 12:20:34* Test Item Value Reference Range Interpretation Comme nts POCT GLU (test code = 5809680819) 187 mg/dL 70-110 H Lab Interpretation (test cod e = 51401-0) Abnormal [facility] GLUCOSE (AUTOMATED)2024-08-04 12:20:34* Test Item Value Reference Range Interpretation Comme nts POCT GLU (test code = 5107338400) 187 mg/dL 70-110 H Lab Interpretation (test cod e = 95469-9) Abnormal [facility] GLUCOSE (AUTOMATED)2024-08-04 01:09:58* Test Item Value Reference Range Interpretation Comme nts POCT GLU (test code = 5107481467) 162 mg/dL 70-110 H Lab Interpretation (test cod e = 57846-0) Abnormal [facility] GLUCOSE (AUTOMATED)2024-08-04 01:09:58* Test Item Value Reference Range Interpretation Comme nts POCT GLU (test code = 7180813043) 162 mg/dL 70-110 H Lab Interpretation (test cod e = 25110-6) Abnormal [facility] GLUCOSE (AUTOMATED)2024-08-03 21:36:00* Test Item Value Reference Range Interpretation Comme nts POCT GLU (test code = 9119921259) 283 mg/dL 70-110 H Lab Interpretation (test cod e = 88327-0) Abnormal [facility] GLUCOSE (AUTOMATED)2024-08-03 21:36:00* Test Item Value Reference Range Interpretation Comme nts POCT GLU (test code = 6877986156) 283 mg/dL 70-110 H Lab Interpretation (test cod e = 08141-8) [facility] 19:07:00* Test Item Value Reference Range Interpretation Comme nts HGB A1C (test code = 4548-4) 11 % 4.0-5.7 H ALLIE (test code = ALLIE) Reference RangesNormal: <5.7%Prediabetes: 5.7 - 6.4%Diabetes: > 6.5% Lab Interpretation (test code = 98278-3) [facility]24-08-03 19:07:00* Test Item Value Reference Range Interpretation Comme nts HGB A1C (test code = 4548-4) 11 % 4.0-5.7 H ALLIE (test code = ALLIE) Reference RangesNormal: <5.7%Prediabetes: 5.7 - 6.4%Diabetes: > 6.5% Lab Interpretation (test code = 51395-6) [facility] vw [id number] 18:00:11EXAM: XR HAND 3+ VW LEFT HISTORY: 39 years old Male with middle finger pain and swelling COMPARISON: None. FINDINGS: Radiographs of the left hand demonstrate questionable cortical erosion ofthe radial aspect of the distal third diaphysis of the proximal phalanx. Noacute fractures or dislocations. Joint spaces are preserved. Alignment iswithin normal limits. Mild soft tissue swelling about the middle [facility] 2024-08-03 18:00:11EXAM: XR [...] soft tissue swelling about the middle finger [facility]OLIC [facility] (28979)2024-08-03 17:44:58* Test Item Value Reference Range Interpretation Comme nts NA (test code = 3356991054) 135 mmol/L 135-145 K (test code = 6068047176) 3.9 mmol/L 3.5-5.0 CL (test code = 1852161643) 100 mmol/L 98-108 CO2 TOTAL (test code = 2163344797) 28 mmol/L 23-31 AGAP (test code = 8724961736) 7 2-16 BUN (test code = 9500284677) 11 mg/dL 7-23 GLUCOSE (test code = 3905958890) 263 mg/dL 70-110 H CREATININE (test code = 2160-0) 0.74 mg/dL 0.60-1.25 TOTAL BILI (test code = 4027564177) 0.8 mg/dL 0.1-1.1 CALCIUM (test code = 4653284389) 8.7 mg/dL 8.6-10.6 T PROTEIN (test code = 3302582084) 7.6 g/dL 6.3-8.2 ALBUMIN (test code = 3693933368) 4.2 g/dL 3.5-5.0 ALK PHOS (test code = 1651157929) 95 U/L 34-122 ALTv (test code = 1742-6) 12 U/L 5-50 AST(SGOT) (test code = 4258007100) 14 U/L 13-40 eGFR (test code = 49838-0) 118.2 mL/min/1.73m2 CKD-EPI eGFR (2020). Assuming creatinine has been stable day-to-day for at least three months, the eGFR indicates Category G1 (>= 90 mL/min/1.73 m2) Lab Interpretation (test code = 96788-8) Abnormal [facility]. METABOLIC PANEL (60400)2024-08-03 17:44:58* Test Item Value Reference Range Interpretation Comme nts NA (test code = 0119177199) 135 mmol/L 135-145 K (test code = 9647054921) 3.9 mmol/L 3.5-5.0 CL (test code = 9348358901) 100 mmol/L 98-108 CO2 TOTAL (test code = 9145640708) 28 mmol/L 23-31 AGAP (test code = 1940322887) 7 2-16 BUN (test code = 8316431631) 11 mg/dL 7-23 GLUCOSE (test code = 1967365155) 263 mg/dL 70-110 H CREATININE (test code = 2160-0) 0.74 mg/dL 0.60-1.25 TOTAL BILI (test code = 2509713825) 0.8 mg/dL 0.1-1.1 CALCIUM (test code = 3806815704) 8.7 mg/dL 8.6-10.6 T PROTEIN (test code = 3972207619) 7.6 g/dL 6.3-8.2 ALBUMIN (test code = 6364994063) 4.2 g/dL 3.5-5.0 ALK PHOS (test code = 0672111210) 95 U/L 34-122 ALTv (test code = 1742-6) 12 U/L 5-50 AST(SGOT) (test code = 6780417742) 14 U/L 13-40 eGFR (test code = 38910-5) 118.2 mL/min/1.73m2 CKD-EPI eGFR (2020). Assuming creatinine has been stable day-to-day for at least three months, the eGFR indicates Category G1 (>= 90 mL/min/1.73 m2) Lab Interpretation (test code = 30894-6) Abnormal [facility] WITH [id number] 17:33:40* Test Item Value Reference Range Interpretation [...] g/dL 31.2-35.0 H RDW-SD (test code = 95828-6) 37.2 fL 38.5-51.6 L RDW-CV (test code = 788-0) 11.6 % 12.1-15.4 L PLT (test code = 777-3) 249 150-328 MPV (test code = 02113-0) 10.2 fL 9.8-13.0 NRBC/100 WBC (test code = 8207995277) 0 0.0-10.0 NRBC x10^3 (test code = 9899592014) See_Comment [Automated messa ge] The system which generated this result transmitted reference range: 10*3/?L. The reference range was not used to interpret this result as normal/abnormal. GRAN MAT (NEUT) % (test code = 770-8) 60.7 % IMM GRAN % (test code = 8959363198) 0.3 % LYMPH % (test code = 736-9) 25.3 % MONO % (test code = 5905-5) 10.4 % EOS % (test code = 713-8) 2.4 % BASO % (test code = 706-2) 0.9 % GRAN MAT x10^3(ANC) (test code = 2720115073) 4.62 10*3/uL 1.99-6.95 IMM GRAN x10^3 (test code = 5080732040) 0.00-0.06 LYMPH x10^3 (test code = 731-0) 1.92 10*3/uL 1.09-3.23 MONO x10^3 (test code = 742-7) 0.79 10*3/uL 0.36-1.02 EOS x10^3 (test code = 711-2) 0.18 10*3/uL 0.06-0.53 BASO x10^3 (test code = 704-7) 0.07 10*3/uL 0.01-0.09 Lab Interpretation (test code = 14334-6) Abnormal [facility] WITH [id number] 17:33:40* Test Item Value Reference Range Interpretation [...] g/dL 31.2-35.0 H RDW-SD (test code = 03578-7) 37.2 fL 38.5-51.6 L RDW-CV (test code = 788-0) 11.6 % 12.1-15.4 L PLT (test code = 777-3) 249 150-328 MPV (test code = 01690-4) 10.2 fL 9.8-13.0 NRBC/100 WBC (test code = 6828303314) 0 0.0-10.0 NRBC x10^3 (test code = 1870166112) See_Comment [Automated messa ge] The system which generated this result transmitted reference range: 10*3/?L. The reference range was not used to interpret this result as normal/abnormal. GRAN MAT (NEUT) % (test code = 770-8) 60.7 % IMM GRAN % (test code = 1850926228) 0.3 % LYMPH % (test code = 736-9) 25.3 % MONO % (test code = 5905-5) 10.4 % EOS % (test code = 713-8) 2.4 % BASO % (test code = 706-2) 0.9 % GRAN MAT x10^3(ANC) (test code = 3888622107) 4.62 10*3/uL 1.99-6.95 IMM GRAN x10^3 (test code = 0637170851) 0.00-0.06 LYMPH x10^3 (test code = 731-0) 1.92 10*3/uL 1.09-3.23 MONO x10^3 (test code = 742-7) 0.79 10*3/uL 0.36-1.02 EOS x10^3 (test code = 711-2) 0.18 10*3/uL 0.06-0.53 BASO x10^3 (test code = 704-7) 0.07 10*3/uL 0.01-0.09 Lab Interpretation (test code = 26649-4) Abnormal [facility] Consult Notes Date/Time Note Provider Source 2024-08-04 [...] he sought treatment in the ED in [place]. He reports drainage of the finger was [...] mg, IV Piggyback, Q8H ABX, María Moctezuma, [facility], Stopped at 08/04/24 0731 vancomycin placeholder: dosing [...] fever trends Thank you for consult T [facility] - Health History and Physical Notes Date/Time [...] he sought treatment in the ED in [place]. He reports drainage of the finger was [...] be performed. Preliminary Report Dictated by Resident: Edna Rivera MD., have reviewed this study and agree with the above report. Assessment and Plan Left middle finger Cellulitis, concerns for osteomyelitis- patient admitted for management of left middle finger cellulitis. Finger with edema, warmth, pain, and erythema. Failed outpatient treatment with cephalexin and clindamycin prescribed by [place] ED provider. Drainage of left fingertip done [...] minutes discussing smoking cessation Voice recognition software, ORVIBO, has been used to create portions of this document and is subject to voice recognition errors. An attempt to proofread has been made to minimize errors. Please excuse any unusual inaccuracies, however, do not hesitate to call with any questions. Tx DIRECTOR OF PUBLIC RELATIONS reviewed Duyen Mireles, DNP, SUPERVISOR OF GUIDANCE AND TESTING, [facility] 08/03/2024 6:01 PM Cosigned by Lasha [...] care. Lasha Hills MD 08/03/2024 6:42 PM [facility] - Health Procedure Notes Date/Time Note Provider Source 2024-08-07 11:19:18 Vascular Access Services Date of Service: 08/07/24 Patient location: [place] [address] Placed by: Zachariah Cantu RN 39 year old male. Indication/Diagnosis: penitentiary antibiotics Consent: indications/complications discussed; verbal consent obtained from sibling and indications/complications discussed; written consent obtained from patient Education provided to patient, including pros and cons of PICC insertion. Questions encouraged and answered accordingly. According to [facility] Operating Procedures Policy, a Time Out was [...] none Chest x-ray: ordered and pending REF#: [id number] Lot #: [id number] Exp Date: 11/06/24 IOT Zachariah Cantu RN [facility] Notes Date/Time Note Provider Source 2024-09-07 23:54:49 Per ERP patient called from lobby. No answer. HIAS Haji RN [facility] 2024-09-07 22:39:27 Pt ambulatory to triage for CC of wanting his PICC line out. Pt states his job wont let him have it in at his job so he would like it removed. PICC is in RUE Brent Farnco RN [facility] 2024-08-30 15:37:31 Patient given discharge instructions on occluded PICC line. No prescriptions given. Pt left ER ambulatory, no distress. Pippa Crouch RN [facility] 2024-08-30 15:25:26 Picc line power flushed with 4 NS flushes. [facility] 2024-08-30 14:53:05 Pt arrived ambulatory without assist. Pt c/o unable to flush PICC line in right arm. 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 General Vancomycin Note [facility] Clinical Pharmacist Consult Consulting Service: Vancomycin (Pharmacy to Dose) Pharmacy Vancomycin Therapeutic Monitoring Note Patient Name DEVONTE Sex Unit Elliott Vila [id number] 1985 male TX2/TX2 Indication for vancomycin and [...] with any questions or concerns. Kanu Marroquin RPH [facility] Department of Pharmacy [facility] Phone: ADC: [phone] Kanu Marroquin [facility] 2024-08-06 22:53:33 Problem: Falls, Risk of Goal: [...] Outcome: Progressing as expected Cristina Vo RN [facility] 2024-08-06 16:06:52 Problem: Falls, Risk of Goal: [...] Outcome: Progressing as expected Sasha Hurst RN [facility] 2024-08-06 09:14:04 Images from the original note were not included. General Vancomycin Note [facility] Clinical Pharmacist Consult Consulting Service: Vancomycin (Pharmacy to Dose) Pharmacy Vancomycin Therapeutic Monitoring Note Patient Name MRN Sex Unit Elliott Vila [id number] 1985 male TX2/TX2 Indication for vancomycin and [...] questions or concerns. Kanu Marroquin PharmD [facility] Department of Pharmacy - [facility] Phone: ADC: [phone] [facility] 2024-08-06 02:31:49 Problem: Falls, Risk of Goal: [...] Outcome: Progressing as expected Rissa Dueñas RN [facility] 2024-08-05 14:51:18 Problem: Falls, Risk of Goal: [...] Outcome: Progressing as expected Chantell Chung RN [facility] 2024-08-05 10:53:21 Images from the original note were not included. General Vancomycin Note [facility] Clinical Pharmacist Consult Consulting Service: Vancomycin (Pharmacy to Dose) Pharmacy Vancomycin Therapeutic Monitoring Note Patient Name MRRosales Sex Unit Elliott Vila [id number] 1985 male TX2/TX2 Indication for vancomycin and [...] questions or concerns. María Moctezuma RPH [facility] Department of Pharmacy - [facility] Phone: ADC: [phone] María Moctezuma [facility] 2024-08-05 09:28:00 OPERATIVE NOTE Date of Surgery: 08/05/2024 Attending Physician : Ghassan Durham M.D. Well Drill Operator Helper Cable Tool(s): None Pre-Operative Diagnosis: 1. Left hand, middle [...] to ER twice till he presented to [facility] ER. The patient was admitted and found [...] follow-up in the orthopedics faculty clinic at [facility] in [facility] in 1 weeks 6- Primary team is encouraged to call orthopedics with any questions/concerns Ghassan Durham MD, Ph.D, FACS, FAAOS Board Certified Orthopedic Surgeon Archives Specialist Limb deformity & Reconstruction Pediatric orthopedics Orthopedic Trauma Schedule appointment: [phone] [facility] 2024-08-05 09:28:00 BRIEF OPERATIVE NOTE Date of [...] LEFT FUNGUS (ROUTINE) CULTURE, IMPLANT/HARDWARE/ORTHO INFECTION CULTURE(AEROBIC/ANAEROBIC) Ghassan Durham MD 08/05/2024 0904 B : left middle finger; no formalin per MD Tissue FINGER TISSUE CULTURE(AEROBIC/ANAEROBIC) Ghassan Durham MD 08/05/2024 0932 IMPLANTS: NONE Patient's Condition: STABLE Findings: PULP SPACE INFECTION OF DISTAL PHALANX, MIDDLE FINGER, LEFT HAND Any other important information: NONE Please see dictated operative report for additional detail. Ghassan Durham MD, Ph.D, FACS, FAAOS Board Certified Orthopedic Surgeon Archives Specialist Limb deformity & Reconstruction Pediatric orthopedics Orthopedic Trauma Schedule appointment: [phone] [facility] 2024-08-04 17:22:49 Problem: Falls, Risk of Goal: [...] VTE diagnosis (Actual) Outcome: Progressing as expected [facility] 2024-08-04 05:58:03 Summary: Vancomycin Monitoring Images from the original note were not included. General Vancomycin Note [facility] Clinical Pharmacist Consult Consulting Service: Vancomycin (Pharmacy to Dose) Pharmacy Vancomycin Therapeutic Monitoring Note Patient Name DEVONTE Sex Unit Elliott Vila [id number] 1985 male TX2/TX2 Indication for vancomycin and [...] or concerns. Shakir Rodriguez RPH, PharmD [facility] Department of Pharmacy - [facility] Phone: ADC: [phone] Shakir Rodriguez RPH [facility] 2024-08-03 23:15:25 Problem: Falls, Risk of Goal: [...] VTE diagnosis (Actual) Outcome: Progressing as expected [facility] 2024-08-03 17:02:29 Problem: Falls, Risk of Goal: [...] VTE diagnosis (Actual) Outcome: Progressing as expected [facility] 2024-08-03 14:27:55 Images from the original note were not included. General Vancomycin Note [facility] Clinical Pharmacist Consult Consulting Service: Vancomycin (Pharmacy to Dose) Pharmacy Vancomycin Therapeutic Monitoring Note Patient Name MRN Sex Unit Elliott Vila [id number] 1985 male TX2/TX2 Indication for vancomycin and [...] or concerns. María Moctezuma RPH, PharmD [facility] Department of Pharmacy - [facility] Phone: ADC: [phone] T [facility] 2024-08-03 14:03:06 Patient admitted to [facility] med surg for diagnosis of finger swelling. Patient agrees to admission, discussed plan of care with patient and family. Patient is awake, A&Ox4, RR even and unlabored on RA. Color appropriate for race. PIV intact x1. No adverse reaction to medications administered while in ED. Belongings with patient to unit. Susan Oh RN [facility] 2024-08-03 14:01:58 Nurse Report Report given to Milagros. Chief complaint, assessment findings, infusion verify and orders reviewed. Susan Oh RN [facility] 2024-08-03 11:30:40 Patient states: "I've noticed this thing on my finger about a week ago. I went to [facility] and the doctor tried to drain it but he didn't do much. He gave me an abx and sent me home. I went back again and they gave me another abx" Noted: wound to left middle finger Pippa Crouch RN [facility] 2024-08-03 11:16:00 Images from the original note were not included. 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 METABOLIC PANEL (69011) - Abnormal NA 135 135 - 145 [...] contrast CBC WITH DIFF COMP. METABOLIC PANEL (37244) Glycosylated Hemoglobin (A1C) Cbc without Diff Basic Metabolic Panel (NA, K, CL, CO2, GLUCOSE, BUN, CREATININE, CA) Lipid Panel (94571)(Total Cholesterol, Triglycerides, HDL) Vancomycin Random Level Pharmacy [...] changes) AdmissionCare documentation entered by: Rian Colon [facility] [employer], 28th edition, Copyright ? 2023 [facility] [employer] All Rights Reserved. [id number]:57:11-05:00 ED COURSE Diagnosis/Impression as of 08/03/24 1558 [...] for consultation. Eleno Carlisle Jr., MD Clinical Plastic Sewer [facility] Emergency Department [facility] 2024-08-03 11:16:00 AdmissionCare Guideline: Musculoskeletal Disease, Inpatient [...] changes) AdmissionCare documentation entered by: Rian Colon [facility], 28th edition, Copyright ? 2023 [facility], [facility] All Rights Reserved. [id number]:57:11-05:00 [facility]
[2024-11-30] MEDS ORDERED: LIDOCAINE 1% MPF 5 ML VIAL ONE (20:28)
[2024-11-30] MEDS ORDERED: BUPIVACAINE 0.5% PF 10 ML VIAL ONE (20:28)
--- NOTE | 2024-11-30 21:23 | RAD REPORT ---
Exam:Hand Left 3 View CLINICAL HISTORY: Left hand pain FINDINGS: No fracture or dislocation seen. No bony destructive lesion seen
--- NOTE | 2024-11-30 21:26 | EDPHYS ---
Physician Documentation [facility] Name: Elliott Vila Age: 39 yrs Sex: Male : 1985 Arrival Date: 11/30/2024 Time: 19:34 Bed 15 Private MD: ED Physician Pritesh Sgeura HPI: 11/30 21:31 This 39 yrs old Male presents to ER via Ambulatory with complaints of Finger kb Injury. 21:31 Patient is a 39-year-old male who presents for paronychia to left little finger. States kb he was seen here couple days ago and put on antibiotics but symptoms have persisted. Reports he has had 1 of these in the past and it led to osteomyelitis so he came back to have it drained. States he requested it be drained on previous visit but it was not completed.. Historical: - Allergies: 19:46 NKA; dd2 - PMHx: 19:46 None; dd2 - PSHx: 19:46 inguinal hernia repair; dd2 - Immunization history:: Adult Immunizations up to date. - Infectious Disease History:: Denies. - Social history:: Smoking status: Reported history of juuling and/or vaping. ROS: 21:31 Constitutional: As per HPI kb Exam: 21:31 Constitutional: This is a well developed, well nourished patient who is awake, alert, kb and in no acute distress. Head/Face: Normocephalic, atraumatic. ENT: Moist Mucous membranes Respiratory: Respirations even and unlabored. No increased work of breathing. Talking in full sentences MS/ Extremity: Pulses equal, no cyanosis. Neurovascular intact. Full, normal range of motion. Neuro: Awake and alert, GCS 15, oriented to person, place, time, and situation. 21:31 Skin: abscess, that is small, of the dorsal aspect of distal phalanx of left index finger, with fluctuance, Vital Signs: 19:43 BP 118 / 84; Pulse 92; Resp 16; Temp 98.2; Pulse Ox 100% on R/A; Weight 77.11 kg; dd2 Height 6 ft. 0 in. ; Pain 5/10; 19:43 Body Mass Index 23.06 (77.11 kg, 182.88 cm) dd2 19:43 Pain Scale: Adult dd2 Procedures: 21:24 I \T\ D: Incision and drainage was performed for an abscess of the left dorsal aspect of kb distal phalanx of left index finger Prepped with alcohol, Incised with 18G. Drained moderate amount purulent fluid. the patient tolerated the procedure well. Nerve block: (digital) of palmar aspect of proximal phalanx of left little finger Medication: Lidocaine 1% without epinephrine Marcaine 0.5%, Amount: 3 mls were injected, Effect: the patient has resolution of the pain, Set up for procedure. Performed by Mehreen DOWNS Patient tolerated well. MDM: 19:42 Medical Screening Exam initiated kb 21:26 Differential diagnosis: Abscess, cellulitis, paronychia, osteomyelitis. Data reviewed: kb vital signs, nurses notes. I considered the following discharge prescriptions or medication management in the emergency department Patient to complete antibiotics previously prescribed. Counseling: I had a detailed discussion with the patient and/or guardian regarding the historical points, exam findings, and any diagnostic results supporting the discharge/admit diagnosis, radiology results, the need for outpatient follow up, a family practitioner, to return to the emergency department if symptoms worsen or persist or if there are any questions or concerns that arise at home. 11/30 19:49 Order name: Hand Left 3 View XRAY; Complete Time: 21:24 kb Administered Medications: 20:45 Drug: Lidocaine Infiltration (1 %) 5 mg Infiltration once {Note: administered by ER jb4 provider.} Route: Infiltration; 20:45 Drug: Bupivacaine Infiltration (0.5 %) 1 vials 10 ml Infiltration once {Note: jb4 administered by ER provider.} Volume: 10 ml; Route: Infiltration; Disposition Summary: 11/30/24 21:26 Discharge Ordered Notes: Location: Home Condition: Stable kb Diagnosis - Paronychia, left fifth digit kb Followup: kb - With: Emergency Department - When: As needed - Reason: Worsening of condition Followup: kb - With: Private Physician - When: 2 - 3 days - Reason: Recheck today's complaints, Continuance of care, Re-evaluation by your physician Discharge Instructions: - Discharge Summary Sheet kb - Paronychia, [id number] kb Forms: - Medication Reconciliation Form kb - Antibiotic Education kb - Prescription Opioid Use kb - Patient Portal Instructions kb - Leadership Thank You Letter kb Addendum: 12/02/2024 13:36 Co-signature as Attending Physician, Pritesh Segura MD I agree with the assessment and c dhillon plan of care. Signatures: Dispatcher [employer] Mehreen Anders, [employer] JENNIFER-Pritesh Nolan MD MD cha Bryson, James, RN RN jb4 [place] RN RN dd2
--- NOTE | 2024-11-30 21:26 | ER ---
Nurse's Notes [facility] Name: Elliott Vila Age: 39 yrs Sex: Male : 1985 Arrival Date: 11/30/2024 Time: 19:34 Bed 15 Private MD: Diagnosis: Paronychia, left fifth digit Presentation: 11/30 19:43 Chief complaint: Patient states: WAS HERE 2 DAYS AGO AND GOT ANTIBIOTICS FOR FINGER dd2 INJURY, BELIEVES HE GOT DIRT UNDER FINGERNAIL AT WORK. Coronavirus screen: At this time, the client does not indicate any symptoms associated with coronavirus-19. Ebola Screen: No symptoms or risks identified at this time. Initial Sepsis Screen: Does the patient meet any 2 criteria? No. Patient's initial sepsis screen is negative. Does the patient have a suspected source of infection? No. Patient's initial sepsis screen is negative. Risk Assessment: Do you want to hurt yourself or someone else? Patient reports no desire to harm self or others. Onset of symptoms is unknown. 19:43 Method Of Arrival: Ambulatory dd2 19:43 Acuity: SHIMA 4 dd2 Triage Assessment: 19:46 General: Appears in no apparent distress. uncomfortable, Behavior is calm, cooperative, dd2 appropriate for age. Pain: Complains of pain in left little finger Pain currently is 5 out of 10 on a pain scale. EENT: No deficits noted. No signs and/or symptoms were reported regarding the EENT system. Neuro: No deficits noted. Cardiovascular: No deficits noted. Respiratory: No deficits noted. GI: No deficits noted. No signs and/or symptoms were reported involving the gastrointestinal system. : No deficits noted. No signs and/or symptoms were reported regarding the genitourinary system. Derm: Wound noted left little fingernail Reports pain that is 5 out of 10 on a pain scale. Musculoskeletal: Circulation, motion, and sensation intact. Range of motion: intact in all extremities, Swelling present in dorsal aspect of distal phalanx of left little finger. Historical: - Allergies: 19:46 NKA; dd2 - PMHx: 19:46 None; dd2 - PSHx: 19:46 inguinal hernia repair; dd2 - Immunization history:: Adult Immunizations up to date. - Infectious Disease History:: Denies. - Social history:: Smoking status: Reported history of juuling and/or vaping. Screenin:32 [facility] ED Fall Risk Assessment (Adult) History of falling in the last 3 months, jb4 including since admission No falls in past 3 months (0 pts) Confusion or Disorientation No (0 pts) Intoxicated or Sedated No (0 pts) Impaired Gait No (0 pts) Mobility Assist Device Used No (0 pt) Altered Elimination No (0 pt) Score/Fall Risk Level 0 - 2 = Low Risk Oriented to surroundings, Maintained a safe environment. Abuse screen: Denies threats or abuse. Nutritional screening: No deficits noted. Tuberculosis screening: No symptoms or risk factors identified. Assessment: 21:02 General: Appears in no apparent distress. uncomfortable, Behavior is calm, cooperative, jb4 appropriate for age. Pain: Complains of pain in dorsal aspect of distal phalanx of left little finger Pain does not radiate. Pain currently is 5 out of 10 on a pain scale. Neuro: Level of Consciousness is awake, alert, obeys commands, Oriented to person, place, time, situation. Cardiovascular: Patient's skin is warm and dry. Respiratory: Airway is patent Respiratory effort is even, unlabored, Respiratory pattern is regular, symmetrical. Derm: Skin is intact, Skin is clammy. Musculoskeletal: Circulation, motion, and sensation intact. Range of motion: intact in all extremities. Vital Signs: 19:43 BP 118 / 84; Pulse 92; Resp 16; Temp 98.2; Pulse Ox 100% on R/A; Weight 77.11 kg; dd2 Height 6 ft. 0 in. ; Pain 5/10; 19:43 Body Mass Index 23.06 (77.11 kg, 182.88 cm) dd2 19:43 Pain Scale: Adult dd2 ED Course: 19:36 Patient arrived in ED. jj6 19:39 Mehreen Rueda FNP-C is PHCP. kb 19:39 Pritesh Segura MD is Attending Physician. kb 19:42 Mehreen Rueda FNP-C is PHCP. kb 19:42 Pritesh Segura MD is Attending Physician. kb 19:46 Triage completed. dd2 19:46 Arm band placed on right wrist. dd2 21:10 Hand Left 3 View XRAY In Process Unspecified. EDMS 21:32 Patient has correct armband on for positive identification. Bed in low position. Call jb4 light in reach. Side rails up X 1. Provided Education on: discharge instructions.. 21:32 No provider procedures requiring assistance completed. Patient did not have IV access jb4 during this emergency room visit. Administered Medications: 20:45 Drug: Lidocaine Infiltration (1 %) 5 mg Infiltration once {Note: administered by ER jb4 provider.} Route: Infiltration; 20:45 Drug: Bupivacaine Infiltration (0.5 %) 1 vials 10 ml Infiltration once {Note: jb4 administered by ER provider.} Volume: 10 ml; Route: Infiltration; Outcome: : Discharge ordered by MD. nguyen 21:32 Discharged to home ambulatory, jb4 21:32 Condition: stable 21:32 Discharge instructions given to patient, Instructed on discharge instructions, follow up and referral plans. Demonstrated understanding of instructions, follow-up care, 21:33 Patient left the ED. jb4 Signatures: Dispatcher [employer] EDMehreen Perez, HIMANSHU RODRIGUEZ-Lebron Calle, RN RN jb4 Penny Amadorj6 [place], RN RN dd2
[2024-11-30 21:44] VITALS: BP 118/84; TEMP 98.2; O2SAT 100
== END 2024-11-30 21:33 | disposition home or self-care (01) ==
LOC: ER 19:34
PROC: 0H9GXZZ Drainage of Left Hand Skin, External Approach (ICD-10-PCS; principal; 2024-11-30)
DX: L03.012 Cellulitis of left finger (principal)
CPT/HCPCS: 73130; 64450; 99283; 10060; J2003